=== PATIENT | female | born 1945 | race Caucasian/White ===

== ENCOUNTER 2017-01-07 03:17 | Emergency (ER) | payer MEDICARE, OTHER ==
--- NOTE | 2017-01-07 03:55 | ED Physician Documentation ---
PD HPI TRUNK INJURY - Stated complaint Stated Complaint: FALL - Chief complaint Chief Complaint: Trauma Ch/Bk - History obtained from History obtained from: Patient - History of Present Illness Location: Right chest, Upper abdomen Type of injury: Fall Timing - onset: Enter time (02:00) Timing - details: Abrupt onset Pain level now: 8 Quality: Pain Improved by: Rest Worsened by: Moving, Palpating Associated symtptoms: No: Syncope Contributing factors: No: Anticoagulated Where injury occured: Home Similar symptoms before: Has not had sx before Recently seen: Not recently seen - Additional information Additional information: patient was walking to bathroom shortly prior to arrival, 2 AM, when she tripped and fell, right anterolateral chest wall struck toilet seat, complains of pain in that region. Patient has Parkinson's disease and is confident she tripped due to tripping on her foot secondary to her Parkinson's Disease. Review of Systems Cardiac: reports: Chest pain / pressure. denies: Palpitations Respiratory: reports: Reviewed and negative GI: reports: Abdominal Pain. 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: Hysterectomy - Present Medications Home Medications: Ambulatory Orders Medication Instructions Recorded Confirmed Carbidopa/Levodopa 10/100 [Sinemet 1 each PO DAILY 07/04/13 01/07/17 10 mg/100 mg] Levothyroxine [Synthroid] 75 mcg PO QDAC 07/04/13 07/04/13 PARoxetine [Paxil] 20 mg PO DAILY 07/04/13 01/07/17 Rasagiline [Azilect] 1 mg PO DAILY 07/04/13 01/07/17 HYDROmorphone [Dilaudid] 2 - 4 mg PO Q6H PRN #20 tablet 01/07/17 LORazepam [Ativan] 0.5 mg PO Q6H PRN #10 tablet 01/07/17 oxyCODONE/ACET 5/325 [Percocet 5 1 - 2 each PO Q4-6H PRN 01/07/17 01/07/17 mg/325 mg] - Allergies Allergies/Adverse Reactions: Allergies Allergy/AdvReac Type Severity Reaction Status Date / Time No Known Drug Allergies Allergy Verified 01/07/17 03:49 - Social History Does the pt smoke?: No Smoking Status: Never smoker Does the pt drink ETOH?: No Does the pt have substance abuse?: No - Immunizations Immunizations are current?: Yes - POLST Patient has POLST: No PD ED PE NORMAL - Vitals Vital signs reviewed: Yes - General General: Alert and oriented X 3, Well developed/nourished, Other (NAD at rest but obvious painful distress with movment involving trunk) - Neck Neck: No bony TTP - Cardiac Cardiac: RRR, No murmur - Respiratory Respiratory: No respiratory distress, Clear bilaterally - Abdomen Abdomen: Soft, Other (mild tenderness to palpation RUQ) - Back Back: No CVA TTP, No spinal TTP - Derm Derm: Other (echymosis right flank ) - Extremities Extremities: No tenderness to palpate, Normal ROM s pain, No edema - Neuro Neuro: Alert and oriented X 3, 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, No motor deficit, No sensory deficit Results - Vitals Vitals: Vital Signs - 24 hr 01/07/17 01/07/17 03:22 05:59 Temperature 36.2 C L Heart Rate 100 86 Respiratory 18 15 Rate Blood Pressure 186/120 H 166/88 H O2 Saturation 99 95 Oxygen O2 Source Room air - Labs Labs: Laboratory Tests 01/07/17 01/07/17 04:37 04:37 WBC 6.7 RBC 4.53 Hgb 13.2 Hct 39.6 MCV 87.3 MCH 29.1 MCHC 33.3 RDW 13.8 Plt Count 175 MPV 8.3 Neut # 4.3 Lymph # 1.8 [place] # 0.5 Eos # 0.0 Baso # 0.0 Absolute Nucleated RBC 0.00 Nucleated RBCs 0.0 Sodium 140 Potassium 3.8 Chloride 101 Carbon Dioxide 29 Anion Gap 10.0 BUN 29 H Creatinine 1.4 H Estimated GFR (MDRD) 37 L Glucose 119 H Calcium 9.8 Total Bilirubin 0.5 AST 21 ALT < 10 L Alkaline Phosphatase 94 Total Protein 7.8 Albumin 4.5 Globulin 3.3 Albumin/Globulin Ratio 1.4 Lipase 26 - Rads (name of study) CT A/P Radiology: Prelim report reviewed, See rad report PD MEDICAL DECISION MAKING - ED course Complexity details: reviewed results, re-evaluated patient, considered differential, d/w patient, d/w family Departure - Departure Disposition: 01 Home, Self Care Clinical Impression: Rib fractures Qualifiers: Encounter type: initial encounter Rib fracture type: multiple ribs Fracture type: closed Laterality: right Qualified Code(s): S22.41XA - Multiple fractures of ribs, right side, initial encounter for closed fracture Condition: Good Instructions: ED Fx Rib Follow-Up: Lisha Waller DO [Primary Care Provider] - Prescriptions: LORazepam [Ativan] 0.5 mg PO Q6H PRN #10 tablet PRN Reason: Anxiety HYDROmorphone [Dilaudid] 2 - 4 mg PO Q6H PRN #20 tablet PRN Reason: Pain Discharge Date/Time: 01/07/17 06:54
[2017-01-07] MEDS ORDERED: LORazepam 0.5 MG TABLET PO STA (04:19)
[2017-01-07] MEDS ORDERED: oxyCODONE 5 MG TABLET PO STA (04:19)
[2017-01-07] MEDS ORDERED: LORazepam 0.5 MG TABLET ONE (04:22)
[2017-01-07] MEDS ORDERED: oxyCODONE 5 MG TABLET ONE (04:22)
[2017-01-07 04:48] LABS: BASOPHILS % (AUTO) 0.5 %; EOSINOPHILS % (AUTO) 0.5 %; HCT - HEMATOCRIT 39.6 % (37.0-47.0); HGB - HEMOGLOBIN 13.2 g/dL (12.0-16.0); LYMPHOCYTES # (AUTO) 1.8 10^3/uL (1.5-3.5); LYMPHOCYTES % (AUTO) 26.6 %; MEAN CORPUSCULAR HEMOGLOBIN 29.1 pg (27.0-31.0); MEAN CORPUSCULAR HGB CONC 33.3 g/dL (32.0-36.0); MEAN CORPUSCULAR VOLUME 87.3 fL (81.0-99.0); MEAN PLATELET VOLUME 8.3 fL (7.9-10.8); MONOCYTES # (AUTO) 0.5 10^3/uL (0.0-1.0); MONOCYTES % (AUTO) 8.1 %; NEUTROPHILS # (AUTO) 4.3 10^3/uL (1.5-6.6); NEUTROPHILS % (AUTO) 64.3 %; RED BLOOD COUNT 4.53 10^6/uL (4.20-5.40); RED CELL DISTRIBUTION WIDTH 13.8 % (12.0-15.0); UNCORRECTED WHITE BLOOD COUNT 6.7 x10^3/uL; WHITE BLOOD COUNT 6.7 x10^3/uL (4.8-10.8)
[2017-01-07 04:57] LABS: ALBUMIN/GLOBULIN RATIO 1.4 (1.0-2.2); BILIRUBIN,TOTAL 0.5 mg/dL (0.2-1.0); BUN - BLOOD UREA NITROGEN 29 mg/dL (6-20); CALCIUM 9.8 mg/dL (8.5-10.3); CARBON DIOXIDE - CO2 29 mmol/L (21-32); CHLORIDE 101 mmol/L (101-111); CREATININE 1.4 mg/dL (0.4-1.0); GFR - MDRD 37 (>89); GLUCOSE 119 mg/dL (70-100); LIPASE 26 U/L (22-51); POTASSIUM 3.8 mmol/L (3.5-5.0); SODIUM 140 mmol/L (135-145); TOTAL PROTEIN 7.8 g/dL (6.7-8.2)
[2017-01-07] MEDS ORDERED: IOPAMIDOL-300 100 ML VIAL IVP ONE ×2 (05:35)
[2017-01-07 06:00] VITALS: BP 166/88
--- NOTE | 2017-01-07 06:20 | CT Preliminary Report ---
Exam: CT Abdomen/Pelvis W/ IMPRESSION: 1. There is subcutaneous stranding about the right lateral abdominal wall and flank region. This like ly corresponds to the injury sustained from the recent fall. No intra-abdominal extension. 2. There is a 3.4 cm lesion within the right mid kidney with a small amount of internal fat. Similar finding can also be seen on the prior exam. 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 A slow growing renal cell carcinoma with internal fat is felt to be much less likely. Follow-up examination is recom mended at 6 months. 3. Status post cholecystectomy without pathological biliary dilation. 4. No bowel obstruction. [facility] SITE ID: [id number]
--- NOTE | 2017-01-07 06:23 | CT Report ---
EXAM: CT ABDOMEN AND PELVIS EXAM DATE: 01/07/2017 05:43 AM. CLINICAL HISTORY: Fall, right upper quadrant and right flank injury, pain, COMPARISONS: None. TECHNIQUE: Routine helical CT imaging was performed through the abdomen and pelvis. IV contrast: 50 c c Isovue-300.. Enteric contrast: No. Reconstructions: Coronal and sagittal. In accordance with CT protocol optimization, one or more of the following dose reduction techniques w ere utilized for this exam: automated exposure control, adjustment of mA and/or KV based on patient s ize, or use of iterative reconstructive technique. FINDINGS: ABDOMEN: Liver: No significant abnormality. Stomach/Distal Esophagus: No significant abnormality. Gallbladder: Surgically absent. Bile Ducts: No significant abnormality. Pancreas: No significant abnormality. Spleen: No significant abnormality. Kidneys: There is a 3.4 cm lesion within the right mid kidney (image 30 series 3). Multiple left side d peripelvic cysts are present. Bilobed left upper kidney cyst also noted measuring 5.6 x 5.2 cm (amanda ge 24 series 3). Adrenals: No significant abnormality. Bowel: No obstruction. Average fecal residual. Appendix: Appendix could not be identified with certainty. No secondary evidence of appendicitis. Lymph Nodes: No pathologically enlarged nodes. Vasculature: Normal caliber aorta. Fluid: No significant free fluid. Abdominal Wall: Subcutaneous stranding along the right lateral abdominal wall in the flank. Other: No significant abnormality. PELVIS: Uterus and Ovaries: Surgically absent Bladder: Bladder is Decompressed, precluding assessment. Lymph Nodes: No pathologically enlarged nodes. Fluid: No significant free fluid. Other: None. BONES: No suspicious bony lesions. LOWER CHEST: No significant consolidation or effusion. Mild bilateral lower lobe atelectasis. IMPRESSION: 1. There is subcutaneous stranding about the right lateral abdominal wall and flank region. This like ly corresponds to the injury sustained from the recent fall. No intra-abdominal extension. 2. There is a 3.4 cm lesion within the right mid kidney with a small amount of internal fat. Similar finding can also be seen on the prior exam. 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 A slow growing renal cell carcinoma with internal fat is felt to be much less likely. Follow-up examination is recom mended at 6 months. 3. Status post cholecystectomy without pathological biliary dilation. 4. No bowel obstruction. [facility] Referring Provider Line: [phone] SITE ID: [id number]
== END 2017-01-07 06:54 | disposition home or self-care (01) ==
LOC: ED 03:17
DX: S22.41XA Multiple fractures of ribs, right side, initial encounter for closed fracture (principal); W01.198A Fall on same level from slipping, tripping and stumbling with subsequent striking against other object, initial encounter; G20 Parkinson's disease; E03.9 Hypothyroidism, unspecified
CPT/HCPCS: 36415; 74177; 80053; 83690; 85025; 99283; 99284; A9270; Q9967

== ENCOUNTER 2017-08-11 12:44 | Outpatient (CLI) | payer MEDICARE, OTHER ==
[2017-08-16] MEDS ORDERED: IOPAMIDOL-300 100 ML VIAL IVP ONE (18:12)
== END 2017-08-11 12:45 | disposition home or self-care (01) ==
LOC: DI 12:44
PROVIDERS: ATTEND Family Medicine
DX: Z53.9 Procedure and treatment not carried out, unspecified reason (principal)

== ENCOUNTER 2017-08-16 14:13 | Outpatient (CLI) | payer MEDICARE ==
[2017-08-16] MEDS ORDERED: IOPAMIDOL-300 100 ML VIAL ONE (15:30)
[2017-08-16] MEDS ORDERED: IOPAMIDOL-300 100 ML VIAL IVP ONE (18:15)
--- NOTE | 2017-08-17 18:55 | CT Report ---
EXAM: CT ABDOMEN AND PELVIS WITHOUT AND WITH CONTRAST (CT IVP) EXAM DATE: 08/16/2017 08:18 AM. CLINICAL HISTORY: Right renal mass. COMPARISONS: CT abdomen pelvis 01/07/2017. TECHNIQUE: Routine helical imaging was performed through the kidneys, ureters and bladder before and after IV contrast administration. IV Contrast: 100 cc Isovue-300. Reconstructions: Coronal and sagitt al. In accordance with CT protocol optimization, one or more of the following dose reduction techniques w ere utilized for this exam: automated exposure control, adjustment of mA and/or KV based on patient s ize, or use of iterative reconstructive technique. FINDINGS: Lung Bases: Modest atelectasis or scarring. Right Kidney/Ureter: No hydronephrosis, hydroureter, or stones. An exophytic medial upper pole soft t issue mass with small fatty components measures 2.8 x 2.6 x 2.9 cm (axial 29/6, coronal 31/9), compar ed to 3.1 x 2.7 x 3.3 cm on my remeasurement. Otherwise normal parenchymal enhancement. No filling de fect in the opacified collecting system and ureter. No perinephric fluid or fat stranding. Left Kidney/Ureter: No hydronephrosis, hydroureter, or stones. A mildly lobular cyst in the upper chris e measures 5.3 x 5 x 4.7 cm. Multiple small parapelvic renal cysts. Tiny hypodensities in the midpole , compatible with additional cysts. No filling defect in the opacified collecting system and ureter. No solid renal nodule, perinephric fluid, or fat stranding. Other Solid Organs: Unremarkable liver, spleen, pancreas, and adrenal glands. Upper normal caliber CB D at 10 mm for postcholecystectomy state. Peritoneal Cavity/Bowel: No focal mass, adenopathy, or free fluid. No dilated bowel or acute intestin al abnormality. Mild distal colonic diverticulosis. Stable small fat-containing umbilical hernia. Retroperitoneum: No adenopathy. Pelvic Organs: No stones or apparent focal abnormality of the moderately contracted bladder. Hysterec adrianna. No adnexal mass or cyst. No free fluid or adenopathy. Vasculature: No abdominal aortic aneurysm. Bones: Degenerative changes of the spine. No aggressive bone destructive process. IMPRESSION: 1. A fat-containing solid right renal mass 3 cm compared to 3.3 cm in maximal diameter, virtually pat hognomonic for benign angiomyolipoma. Notice that although rarely renal cell carcinoma could contain fatty components, the latter almost always occurs in the presence of ossification/calcification which is absent in this lesion. Suggest ultrasound follow-up in 12 months to follow lesion size since larg er AMLs (greater than 4 cm) are at an increased risk for hemorrhage. 2. Left renal cysts. 3. No acute findings. [facility] Referring Provider Line: [phone] SITE ID: [id number]
== END 2017-08-16 14:14 | disposition home or self-care (01) ==
LOC: LAB 14:13 → DI 14:14
PROVIDERS: ATTEND Family Medicine
DX: N28.89 Other specified disorders of kidney and ureter (principal); Q61.02 Congenital multiple renal cysts
CPT/HCPCS: 36415; 74178; 82565; Q9967

== ENCOUNTER 2017-12-19 08:00 | Outpatient (CLI) | payer MEDICARE, OTHER ==
[2017-12-19 19:32] LABS: BASOPHILS % (AUTO) 0.9 %; LYMPHOCYTES # (AUTO) 1.3 10^3/uL (1.5-3.5); LYMPHOCYTES % (AUTO) 30.5 %; MEAN CORPUSCULAR HEMOGLOBIN 29.4 pg (27.0-31.0); MEAN CORPUSCULAR VOLUME 88.9 fL (81.0-99.0); MEAN PLATELET VOLUME 8.4 fL (7.9-10.8); MONOCYTES # (AUTO) 0.3 10^3/uL (0.0-1.0); MONOCYTES % (AUTO) 7.8 %; NEUTROPHILS # (AUTO) 2.6 10^3/uL (1.5-6.6); NEUTROPHILS % (AUTO) 59.8 %; PLT - PLATELET COUNT 197 10^3/uL (130-450); RED BLOOD COUNT 4.44 10^6/uL (4.20-5.40); RED CELL DISTRIBUTION WIDTH 13.6 % (12.0-15.0); WHITE BLOOD COUNT 4.3 x10^3/uL (4.8-10.8)
[2017-12-19 19:47] LABS: ALBUMIN 4.3 g/dL (3.2-5.5); ALBUMIN/GLOBULIN RATIO 1.6 (1.0-2.2); ALKALINE PHOSPHATASE 58 IU/L (42-121); ALT ALANINE AMINOTRANSFERASE < 10 IU/L (10-60); AST ASPARTATE AMINOTRANSFERASE 19 IU/L (10-42); BILIRUBIN,TOTAL 0.8 mg/dL (0.2-1.0); BUN - BLOOD UREA NITROGEN 16 mg/dL (6-20); CALCIUM 8.8 mg/dL (8.5-10.3); CARBON DIOXIDE - CO2 27 mmol/L (21-32); CHLORIDE 105 mmol/L (101-111); CHOL/HDL RATIO 4.7 (<4.4); CHOLESTEROL 268 mg/dL; CREATININE 0.7 mg/dL (0.4-1.0); GFR - MDRD 83 (>89); GLUCOSE 107 mg/dL (70-100); HDL CHOLESTEROL 57 mg/dL; LDL CHOLESTEROL,CALCULATED 177 mg/dL; LDL/HDL RATIO 3.1 (<4.4); SODIUM 139 mmol/L (135-145); VLDL CHOLESTEROL 34 mg/dL
== END 2017-12-19 08:01 | disposition home or self-care (01) ==
LOC: LAB.WCP 08:00
PROVIDERS: ATTEND Family Medicine
DX: E78.5 Hyperlipidemia, unspecified (principal); Z79.899 Other long term (current) drug therapy; I10 Essential (primary) hypertension; E03.9 Hypothyroidism, unspecified
CPT/HCPCS: 36415; 80053; 80061; 83721; 84443; 85025

== ENCOUNTER 2018-02-28 12:36 | Outpatient (CLI) | payer MEDICARE, OTHER ==
--- NOTE | 2018-02-28 14:07 | DEXA Report ---
Procedure Date: 02/28/2018 Accession Number: [id number] / [id number] Procedure: DEX - Dexa Spine and/or Hip CPT Code: FULL RESULT: EXAM: Dexa Spine and/or Hip DATE: 02/28/2018 1:16 PM CLINICAL HISTORY: BONE DISORDER TECHNIQUE: Dual energy x-ray absorptiometry (DXA) was performed on a [place] [employer]. Regions measured are the AP Spine, femoral neck, and if needed forearm. COMPARISON: None. In accordance with the International Society for Clinical Densitometry (ISCD) guidelines, data from previous exams may be reanalyzed using current recommendations and techniques. This is done to allow a more accurate basis for comparison with the current study. FINDINGS: The data for the lumbar spine is as follows: BMD (g/cm/cm) T-SCORE Z-SCORE REGION L1 1.183 0.4 1.2 L2 1.213 0.1 0.9 L3 1.164 -0.3 0.5 L4 1.347 1.2 2.0 TOTAL 1.231 0.4 1.2 NOTE: All evaluable vertebrae are used for classification The data for the hip is as follows: BMD (g/cm/cm) T-SCORE Z-SCORE REGION Neck 0.807 -1.7 -0.5 TOTAL 0.939 -0.5 0.3 NOTE: The femoral neck or total proximal femur, whichever is lowest, is used for classification. IMPRESSION: THE WHO CLASSIFICATION BASED ON THE INTERNATIONAL REFERENCE STANDARD IS OSTEOPENIA. THE FRACTURE RISK IS INCREASED. RECOMMENDATION: Patients with diagnosis of osteoporosis or osteopenia should have regular bone mineral density assessment. For those eligible for Medicare, routine testing is allowed once every 2 years. Testing frequency can be increased for patients who have rapidly progressing disease or for those who are receiving medical therapy to restore bone mass. COMMENT: World Health Organization (WHO) definitions for osteoporosis and osteopenia: NORMAL BMD: T-score at -1.0 or higher, fracture risk is low OSTEOPENIA BMD: T-score between -1.0 and -2.5, fracture risk is increased. OSTEOPOROSIS BMD: T-score at -2.5 or lower, fracture risk is high. National Osteoporosis Foundation recommends: 1. Obtain adequate dietary calcium (at least 1200 mg per day) and vitamin D (400-800 international units per day). 2. Participate, as appropriate, in regular weightbearing and muscle-strengthening exercise. 3. Avoid tobacco use and reduce alcohol and caffeine intake. 4. For more detailed information see the website at www.NOF.org.
== END 2018-02-28 12:37 | disposition home or self-care (01) ==
LOC: DI 12:36
PROVIDERS: ATTEND Family Medicine
DX: M85.88 Other specified disorders of bone density and structure, other site (principal)
CPT/HCPCS: 77080

== ENCOUNTER 2018-02-28 12:40 | Outpatient (CLI) | payer MEDICARE, OTHER ==
--- NOTE | 2018-03-01 14:38 | Mammography Report ---
Procedure Date: 02/28/2018 Accession Number: [id number] / [id number] Procedure: YVONNE - Screening Mammo Dig Bilat CPT Code: FULL RESULT: EXAM: Screening Mammo Dig Bilat DATE: 02/28/2018 1:31 PM CLINICAL HISTORY: 73-year-old for screening TECHNIQUE: Bilateral CC and MLO views were obtained. COMPARISON: 05/31/2016, 07/28/2014 FINDINGS: The breasts demonstrate scattered fibroglandular densities bilaterally. Coarse and punctate, typically benign calcifications are present. No suspicious masses, clustered microcalcifications, or regions of architectural distortion are identified. IMPRESSION: Benign findings RECOMMENDATION: Routine annual screening unless otherwise clinically indicated. BIRADS CATEGORY 2: Benign findings STANDARD QUALIFYING STATEMENTS: 1. This examination was reviewed with the aid of Computer-Aided Detection (CAD). 2. A negative or benign imaging report should not delay biopsy if clinically suspicious findings are present. Consider surgical consultation if warrented. More than 5% of cancers are not identified by imaging. 3. Dense breasts may obscure an underlying neoplasm.
== END 2018-02-28 12:41 | disposition home or self-care (01) ==
LOC: DI 12:40
PROVIDERS: ATTEND Family Medicine
DX: Z12.31 Encounter for screening mammogram for malignant neoplasm of breast (principal)
CPT/HCPCS: 77067

== ENCOUNTER → 2018-07-03 | Outpatient (CLI) | payer MEDICARE, OTHER ==
[2018-07-03 14:18] LABS: BASOPHILS % (AUTO) 0.6 %; EOSINOPHILS % (AUTO) 1.1 %; HGB - HEMOGLOBIN 13.6 g/dL (12.0-16.0); LYMPHOCYTES # (AUTO) 1.7 10^3/uL (1.5-3.5); LYMPHOCYTES % (AUTO) 42.4 %; MEAN CORPUSCULAR HEMOGLOBIN 29.9 pg (27.0-31.0); MEAN CORPUSCULAR VOLUME 88.1 fL (81.0-99.0); MEAN PLATELET VOLUME 8.2 fL (7.9-10.8); MONOCYTES # (AUTO) 0.4 10^3/uL (0.0-1.0); MONOCYTES % (AUTO) 9.5 %; NEUTROPHILS # (AUTO) 1.8 10^3/uL (1.5-6.6); NEUTROPHILS % (AUTO) 46.4 %; PLT - PLATELET COUNT 196 10^3/uL (130-450); RED BLOOD COUNT 4.55 10^6/uL (4.20-5.40); RED CELL DISTRIBUTION WIDTH 13.3 % (12.0-15.0); WHITE BLOOD COUNT 3.9 x10^3/uL (4.8-10.8)
[2018-07-03 14:36] LABS: ALBUMIN 3.9 g/dL (3.2-5.5); ALBUMIN/GLOBULIN RATIO 1.3 (1.0-2.2); ALKALINE PHOSPHATASE 67 IU/L (42-121); ALT ALANINE AMINOTRANSFERASE < 10 IU/L (10-60); AST ASPARTATE AMINOTRANSFERASE 17 IU/L (10-42); BILIRUBIN,TOTAL 0.9 mg/dL (0.2-1.0); BUN - BLOOD UREA NITROGEN 16 mg/dL (6-20); CALCIUM 8.8 mg/dL (8.5-10.3); CARBON DIOXIDE - CO2 29 mmol/L (21-32); CHLORIDE 100 mmol/L (101-111); CHOL/HDL RATIO 4.2 (<4.4); CHOLESTEROL 254 mg/dL; CREATININE 0.9 mg/dL (0.4-1.0); GFR - MDRD 62 (>89); GLUCOSE 114 mg/dL (70-100); HDL CHOLESTEROL 60 mg/dL; LDL CHOLESTEROL,CALCULATED 155 mg/dL; LDL/HDL RATIO 2.6 (<4.4); SODIUM 140 mmol/L (135-145); VLDL CHOLESTEROL 39 mg/dL
== END ==
LOC: LAB.WCP 10:39
PROVIDERS: ATTEND Family Medicine
DX: M89.9 Disorder of bone, unspecified (principal); E78.5 Hyperlipidemia, unspecified
CPT/HCPCS: 36415; 80053; 80061; 83721; 85025

== ENCOUNTER 2018-08-17 14:57 | Outpatient (CLI) | payer MEDICARE, OTHER ==
--- NOTE | 2018-08-18 11:38 | Ultrasound Report ---
Reason: KIDNEY MASS Procedure Date: 08/17/2018 Accession Number: [id number] / [id number] Procedure: US - Retroperitoneal CPT Code: FULL RESULT: EXAM: RENAL ULTRASOUND EXAM DATE: 08/17/2018 03:45 PM. CLINICAL HISTORY: KIDNEY MASS. COMPARISON: IVP 08/16/2017 3:48 PM. TECHNIQUE: Real-time scanning was performed with static images obtained. FINDINGS: Right Kidney: 10.7 x 4.3 x 4 cm. Normal echotexture with no stones, contour-deforming masses, or hydronephrosis. Left Kidney: 9.9 x 4.5 x 5 cm. No stones, contour-deforming masses, or hydronephrosis. Anechoic 4.5 x 4.2 x 4.4 cm upper left renal simple cyst. Bladder: Ureteral just were not evaluated. The prevoid bladder volume was 22.3 cc. The postvoid bladder volume was 17.6 cc. Other: None. IMPRESSION: 1. Anechoic 4.5 cm simple left upper renal cyst. No contour deforming renal mass, stone or hydronephrosis. Fat-containing right upper renal mass was seen on a prior CT. In absence of surgical intervention, recommend follow-up CT to document the presence or absence of an interval change of the lesion given the nonvisualization of the lesion on ultrasound. 2. Normal bladder. [facility]
== END 2018-08-17 14:58 | disposition home or self-care (01) ==
LOC: DI 14:57
PROVIDERS: ATTEND Family Medicine
DX: N28.89 Other specified disorders of kidney and ureter (principal); N28.1 Cyst of kidney, acquired
CPT/HCPCS: 76770

== ENCOUNTER 2018-08-22 14:02 | Outpatient (CLI) | payer MEDICARE, OTHER ==
[2018-08-22] MEDS ORDERED: IOVERSOL 320 100 ML VIAL IVP ONE ×2 (14:28→16:31)
--- NOTE | 2018-08-23 00:20 | CT Report ---
Reason: RENAL MASS Procedure Date: 08/22/2018 Accession Number: [id number] / [id number] Procedure: CT - Abdomen W/WO CPT Code: FULL RESULT: EXAM: CT ABDOMEN WITHOUT AND WITH CONTRAST EXAM DATE: 08/22/2018 04:15 PM. HISTORY: Renal mass. COMPARISON: IVP 08/16/2017 3:48 PM. TECHNIQUE: Routine helical CT imaging was performed through the kidneys before and after administration of IV contrast: 90 mL Optiray 320. Enteric contrast: No. Reconstruction: Coronal and sagittal. In accordance with CT protocol optimization, one or more of the following dose reduction techniques were utilized for this exam: automated exposure control, adjustment of mA and/or KV based on patient size, or use of iterative reconstructive technique. FINDINGS: Lung Bases: Unremarkable. Liver: Normal. No masses. Gallbladder/Bile Ducts: Unremarkable post cholecystectomy. Spleen: Normal. Pancreas: Normal. No masses or ductal obstruction. Adrenal Glands: Normal. Kidneys: Stable fat-containing solid medial exophytic right upper pole renal nodule, measuring 31 x 27 mm on image 32 series 5 and extending 32 mm in craniocaudal dimension on sagittal image 46 series 12. Stable 5 cm left upper pole cyst. No suspicious renal masses seen. No stone disease or hydronephrosis. Symmetric excretion of the kidneys. Peritoneal Cavity/Bowel: Unremarkable where seen. Pelvis was not included on study. No free air or fluid in the abdomen. Vasculature: No aneurysms or other significant abnormality. Bones: No significant abnormality. Other: None. 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 No suspicious renal mass seen. [facility]
== END 2018-08-22 14:03 | disposition home or self-care (01) ==
LOC: LAB 14:02 → DI 14:03
PROVIDERS: ATTEND Family Medicine
DX: D17.71 Benign lipomatous neoplasm of kidney (principal)
CPT/HCPCS: 36415; 74170; 82565; Q9967

== ENCOUNTER 2019-01-01 08:00 | Outpatient (CLI) | payer MEDICARE, OTHER ==
[2019-01-01 13:28] LABS: BASOPHILS % (AUTO) 0.8 %; EOSINOPHILS # (AUTO) 0.1 10^3/uL (0.0-0.7); EOSINOPHILS % (AUTO) 1.3 %; LYMPHOCYTES # (AUTO) 1.6 10^3/uL (1.5-3.5); LYMPHOCYTES % (AUTO) 39.3 %; MEAN CORPUSCULAR HEMOGLOBIN 29.2 pg (27.0-31.0); MEAN CORPUSCULAR HGB CONC 32.9 g/dL (32.0-36.0); MEAN CORPUSCULAR VOLUME 88.7 fL (81.0-99.0); MEAN PLATELET VOLUME 8.6 fL (7.9-10.8); MONOCYTES # (AUTO) 0.4 10^3/uL (0.0-1.0); MONOCYTES % (AUTO) 9.1 %; NEUTROPHILS % (AUTO) 49.5 %; PLT - PLATELET COUNT 196 10^3/uL (130-450); RED BLOOD COUNT 4.45 10^6/uL (4.20-5.40); RED CELL DISTRIBUTION WIDTH 13.4 % (12.0-15.0); WHITE BLOOD COUNT 4.1 x10^3/uL (4.8-10.8)
[2019-01-01 15:00] LABS: ALBUMIN 3.8 g/dL (3.2-5.5); ALBUMIN/GLOBULIN RATIO 1.3 (1.0-2.2); ALKALINE PHOSPHATASE 56 IU/L (42-121); ALT ALANINE AMINOTRANSFERASE < 10 IU/L (10-60); AST ASPARTATE AMINOTRANSFERASE 13 IU/L (10-42); BILIRUBIN,TOTAL 0.7 mg/dL (0.2-1.0); BUN - BLOOD UREA NITROGEN 17 mg/dL (6-20); CARBON DIOXIDE - CO2 28 mmol/L (21-32); CHLORIDE 102 mmol/L (101-111); CHOLESTEROL 236 mg/dL; CREATININE 0.9 mg/dL (0.4-1.0); GFR - MDRD 62 (>89); GLUCOSE 109 mg/dL (70-100); HDL CHOLESTEROL 59 mg/dL; LDL CHOLESTEROL,CALCULATED 152 mg/dL; LDL/HDL RATIO 2.6 (<4.4); SODIUM 142 mmol/L (135-145); TOTAL PROTEIN 6.7 g/dL (6.7-8.2); VLDL CHOLESTEROL 25 mg/dL
== END 2019-01-01 23:59 | disposition home or self-care (01) ==
LOC: LAB.WCP 08:00
PROVIDERS: ATTEND Family Medicine
DX: E78.5 Hyperlipidemia, unspecified (principal); I10 Essential (primary) hypertension; Z79.891 Long term (current) use of opiate analgesic; E03.9 Hypothyroidism, unspecified
CPT/HCPCS: 36415; 80053; 80061; 83721; 84443; 85025

== ENCOUNTER 2019-04-29 15:24 | Outpatient (CLI) | payer MEDICARE ==
--- NOTE | 2019-04-30 08:31 | Mammography Report ---
Reason: SCREENING MAMMO Procedure Date: 04/29/2019 Accession Number: [id number] / [id number] Procedure: YVONNE - Screening Mammo w/Bernardino CPT Code: FULL RESULT: EXAM: Screening Mammo w/Bernardino DATE: 04/29/2019 3:50 PM CLINICAL HISTORY: Screening encounter. TECHNIQUE: (B) - Bilateral CC and MLO views were obtained. COMPARISON: 02/20/2018 through 08/18/2011. PARENCHYMAL PATTERN: (A) - The breast(s) demonstrate(s) scattered fibroglandular densities. FINDINGS: There are coarse typically benign calcifications. There are no suspicious masses, calcifications, or areas of distortion. IMPRESSION: Benign findings. BI-RADS category 2. RECOMMENDATION: (ANNUAL) - Recommend routine annual screening mammography. BI-RADS CATEGORY: (2) - Benign Findings. STANDARD QUALIFYING STATEMENTS: 1. This examination was not reviewed with the aid of Computer-Aided Detection (CAD). 2. A negative or benign imaging report should not preclude biopsy if clinically suspicious findings are present. 3. Dense breasts may obscure an underlying neoplasm. 4. This examination was reviewed with the aid of 3D breast imaging (tomosynthesis).
== END 2019-04-29 15:25 | disposition home or self-care (01) ==
LOC: DI 15:24
DX: Z12.31 Encounter for screening mammogram for malignant neoplasm of breast (principal)
CPT/HCPCS: 77063; 77067

== ENCOUNTER 2019-07-15 10:33 | Outpatient (CLI) | payer MEDICARE ==
[2019-07-15 13:18] LABS: ALBUMIN 4.1 g/dL (3.2-5.5); ALBUMIN/GLOBULIN RATIO 1.3 (1.0-2.2); ALKALINE PHOSPHATASE 70 IU/L (42-121); ALT ALANINE AMINOTRANSFERASE < 10 IU/L (10-60); AST ASPARTATE AMINOTRANSFERASE 16 IU/L (10-42); BILIRUBIN,TOTAL 0.7 mg/dL (0.2-1.0); BUN - BLOOD UREA NITROGEN 19 mg/dL (6-20); CARBON DIOXIDE - CO2 29 mmol/L (21-32); CHLORIDE 103 mmol/L (101-111); CREATININE 0.9 mg/dL (0.4-1.0); GFR - MDRD 62 (>89); GLUCOSE 103 mg/dL (70-100); SODIUM 139 mmol/L (135-145); TOTAL PROTEIN 7.3 g/dL (6.7-8.2)
[2019-07-15 13:27] LABS: HB2 TOTAL 12.3 g/dL; HEMOGLOBIN A1C 0.51 g/dL; HEMOGLOBIN A1C % 5.9 % (4.6-6.2)
[2019-07-16 13:00] LABS: HEPATITIS C ANTIBODY NON-REACTIVE (NON-REACTIVE)
== END 2019-07-15 23:59 | disposition home or self-care (01) ==
LOC: LAB.WCP 10:33
PROVIDERS: ATTEND Family Medicine
DX: Z11.59 Encounter for screening for other viral diseases (principal); R73.01 Impaired fasting glucose
CPT/HCPCS: 36415; 80053; 83036; 86803

== ENCOUNTER 2019-09-27 17:47 | Outpatient (CLI) | payer MEDICARE | END 2019-09-27 17:48 | disposition critical access hospital (66) | LOC: EMS 17:47 | PROVIDERS: ATTEND Surgery | DX: M25.512 Pain in left shoulder (principal); W01.190A Fall on same level from slipping, tripping and stumbling with subsequent striking against furniture, initial encounter; Y93.01 Activity, walking, marching and hiking; Y92.008 Other place in unspecified non-institutional (private) residence as the place of occurrence of the external cause | CPT/HCPCS: A0425; A0427 ==

== ENCOUNTER 2019-09-27 18:15 | Inpatient (IN) | payer MEDICARE ==
[2019-09-27] MEDS ORDERED: LORazepam 2 MG/ML VIAL IVP STA (18:17)
[2019-09-27] MEDS ORDERED: KETOROLAC 30 MG/ML VIAL IVP STA (18:17)
[2019-09-27] MEDS: HYDROmorphone 1 MG/ML CARPUJECT IVP STA ×2 (18:24→23:20)
--- NOTE | 2019-09-27 18:25 | ED Physician Documentation ---
PD HPI UPPER EXT INJURY - Stated complaint Stated Complaint: GLF, LT SHOULDER PAIN - Chief complaint Chief Complaint: Ext Problem - History obtained from History obtained from: Patient - History of Present Illness Location: Left (She tripped and fell on a carpet, hit on a bookshelf directly on her left shoulder and has severe pain there. No other injuries. 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 - Present Medications Home Medications: Ambulatory Orders Medication Instructions Recorded Confirmed Carbidopa/Levodopa 10/100 [Sinemet each PO DAILY 07/04/13 01/07/17 10 mg/100 mg] Levothyroxine [Synthroid] 75 mcg PO QDAC 07/04/13 07/04/13 PARoxetine [Paxil] 20 mg PO DAILY 07/04/13 01/07/17 Rasagiline [Azilect] 1 mg PO DAILY 07/04/13 01/07/17 oxyCODONE/ACET 5/325 [Percocet 5 1 - 2 each PO Q4-6H PRN 01/07/17 01/07/17 mg/325 mg] - Allergies Allergies/Adverse Reactions: Allergies Allergy/AdvReac Type Severity Reaction Status Date / Time No Known Drug Allergies Allergy Verified 01/07/17 03:49 - Social History Does the pt smoke?: No Smoking Status: Never smoker Does the pt drink ETOH?: No Does the pt have substance abuse?: No - Immunizations Immunizations are current?: Yes - POLST Patient has POLST: No PD ED PE NORMAL - Vitals Vital signs reviewed: Yes - General General: Other (Screaming and in pain) - HEENT HEENT: PERRL, EOMI - Neck Neck: No bony TTP (But will image the C-spine given potential distracting injury) - Cardiac Cardiac: RRR, No murmur - Respiratory Respiratory: No respiratory distress, Clear bilaterally - Abdomen Abdomen: Normal bowel sounds, Soft, Non tender - Back Back: No CVA TTP, No spinal TTP - Derm Derm: Normal color, Warm and dry - Extremities Extremities: Other (Quite tender in the area of the upper humerus and cannot range the left arm at all. Remainder of her extremities seem nontender. 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 well as radial pulses.) - Neuro Neuro: Alert and oriented X 3, Normal speech Results - Vitals Vitals: Vital Signs - 24 hr 09/27/19 09/27/19 09/27/19 18:18 18:24 19:04 Temperature Heart Rate 81 80 85 Respiratory 26 H 18 Rate Blood Pressure 198/98 H 167/94 H O2 Saturation 96 98 87 L 09/27/19 09/27/19 09/27/19 19:05 19:27 20:00 Temperature 36.8 C Heart Rate 67 Respiratory 14 Rate Blood Pressure 166/109 H O2 Saturation 94 96 09/27/19 21:00 Temperature Heart Rate 86 Respiratory 16 Rate Blood Pressure 157/85 H O2 Saturation 94 Oxygen O2 Source Nasal cannula - Labs Labs: Laboratory Tests 09/27/19 09/27/19 09/27/19 18:22 18:22 18:22 WBC 9.9 RBC 4.10 L Hgb 12.0 Hct 37.8 MCV 92.2 MCH 29.3 MCHC 31.7 L RDW 12.8 Plt Count 159 MPV 10.3 Neut # (Auto) 8.3 H Lymph # (Auto) 0.9 L [place] # (Auto) 0.7 Eos # (Auto) 0.0 Baso # (Auto) 0.0 Absolute Nucleated RBC 0.00 Nucleated RBC % 0.0 PT 12.7 H INR 1.1 Sodium 139 Potassium 3.4 L Chloride 107 Carbon Dioxide 26 Anion Gap 6.0 BUN 15 Creatinine 0.7 Estimated GFR (MDRD) 82 L Glucose 119 H Calcium 8.0 L - Rads (name of study) L humerus Radiology: EMP read contemporaneously (Completely displaced humeral neck fracture) CT Cspine Radiology: EMP read contemporaneously (NAD) CT LUE Radiology: EMP read contemporaneously (Completely displaced and mildly comminuted fracture of the surgical neck of the humerus.) PD MEDICAL DECISION MAKING - ED course ED course: 74-year-old woman with history of Parkinson's presents after a trip and fall injuring her left shoulder, pain is severe and received 275 mcg of fentanyl on the way here and on arrival received a milligram of Dilaudid, 30 mg of Toradol, and 1 mg of Ativan just to get imaging done. Given potential distracting injury, out of an abundance of caution, the cervical spine was imaged despite no clinical findings there. Also was difficult to get adequate pictures of her humerus itself so a CT was done at that as well. This was due to uncontrolled pain. Case was discussed by phone with Dr. Rios, the on-call orthopedic surgeon who will see her in consult, does not know the timing of potential surgical intervention at this point. Spoke with Dr Chavis for admission for pain control who is concerned about the criteria for admission. I called [facility] and they would actually prefer to send her down to [place], I spoke with Dr. Capone there at approximately 8:20 PM and they will call me back with a bed and an accepting physician. Subsequently I also spoke with the orthopedic PA there and Dr. Capone again, they were planning to accept her, but the family and the patient did not want to be transferred. They wanted to stay here for pain control. They understand that their insurance may not cover any or all of the stay here and the patient signed a advance beneficiary notice to that effect. Spoke with Dr. Chavis for observation at 10:05 PM. Departure - Departure Disposition: ED Place in Observation Clinical Impression: Humeral surgical neck fracture Qualifiers: Encounter type: initial encounter Fracture type: closed Fracture morphology: unspecified fracture morphology Fracture alignment: displaced Laterality: left Qualified Code(s): S42.212A - Unspecified displaced fracture of surgical neck of left humerus, initial encounter for closed fracture Condition: Good Record reviewed to determine appropriate education?: Yes
--- NOTE | 2019-09-27 19:08 | XRAY Report ---
Reason: arm injury Procedure Date: 09/27/2019 Accession Number: [id number] / [id number] Procedure: XR - Humerus LT CPT Code: Final Report FULL RESULT: EXAM: LEFT HUMERUS RADIOGRAPHY EXAM DATE: 09/27/2019 06:57 PM. CLINICAL HISTORY: Fall. Arm injury. Decreased range of motion. COMPARISON: None. TECHNIQUE: 2 views. FINDINGS: Bones: Completely displaced humeral neck fracture. No other bony abnormalities identified. Joints: Normal. No effusions or subluxations in the visualized shoulder or elbow joints. Soft Tissues: Unremarkable. IMPRESSION: Completely displaced humeral neck fracture. RADIA
[2019-09-27] MEDS ORDERED: oxyCODONE 5 MG TABLET PO STA (19:26)
[2019-09-27 19:36] LABS: BASOPHILS % (AUTO) 0.4 %; EOSINOPHILS % (AUTO) 0.2 %; LYMPHOCYTES # (AUTO) 0.9 10^3/uL (1.5-3.5); LYMPHOCYTES % (AUTO) 8.6 %; MEAN CORPUSCULAR HEMOGLOBIN 29.3 pg (27.0-31.0); MEAN CORPUSCULAR HGB CONC 31.7 g/dL (32.0-36.0); MEAN CORPUSCULAR VOLUME 92.2 fL (81.0-99.0); MEAN PLATELET VOLUME 10.3 fL (7.9-10.8); MONOCYTES # (AUTO) 0.7 10^3/uL (0.0-1.0); MONOCYTES % (AUTO) 6.8 %; NEUTROPHILS # (AUTO) 8.3 10^3/uL (1.5-6.6); NEUTROPHILS % (AUTO) 83.5 %; PLT - PLATELET COUNT 159 10^3/uL (130-450); RED CELL DISTRIBUTION WIDTH 12.8 % (12.0-15.0); WHITE BLOOD COUNT 9.9 x10^3/uL (4.8-10.8)
[2019-09-27 19:41] LABS: CREATININE 0.7 mg/dL (0.4-1.0)
[2019-09-27 19:52] LABS: INR 1.1 (0.8-1.2); PT - PROTHROMBIN TIME 12.7 secs (9.9-12.6)
--- NOTE | 2019-09-27 20:14 | CT Report ---
Reason: humerus fracture Procedure Date: 09/27/2019 Accession Number: [id number] / [id number] Procedure: CT - UPPER EXTREMITY WO - LT CPT Code: Final Report FULL RESULT: EXAM: LEFT SHOULDER CT WITHOUT CONTRAST EXAM DATE: 09/27/2019 07:06 PM. CLINICAL HISTORY: Humerus fracture. COMPARISON: HUMERUS LT 09/27/2019 6:35 PM. TECHNIQUE: Thin-section axial images were acquired of the shoulder without contrast. Post-processing: Coronal and sagittal reformats. Other: None. In accordance with CT protocol optimization, one or more of the following dose reduction techniques were utilized for this exam: automated exposure control, adjustment of mA and/or KV based on patient size, or use of iterative reconstructive technique. FINDINGS: Bones: There is a transverse fracture involving the surgical neck of the humerus with a full bone shaft width displacement of the humeral shaft medially. There are several residual comminuted fracture fragments laterally. The fracture extends to the base of the greater tuberosity however no significant tuberosity displacement. The visualized clavicle, scapula and left upper ribs are intact. Joints: No glenohumeral dislocation. Musculature: Normal. No fatty atrophy. Other: The visualized lungs are unremarkable. No lymphadenopathy in the visualized axilla. IMPRESSION: 1. Completely displaced, mildly comminuted fracture involving the surgical neck of the humerus. RADIA
[2019-09-27] MEDS ORDERED: HYDROmorphone 1 MG/ML CARPUJECT ONE (20:27)
[2019-09-27] MEDS ORDERED: HYDROmorphone 1 MG/ML CARPUJECT IVP STA ×3 (20:35→22:21)
--- NOTE | 2019-09-27 20:51 | CT Report ---
Reason: fall, distracting injury Procedure Date: 09/27/2019 Accession Number: [id number] / [id number] Procedure: CT - CERVICAL SPINE WO CPT Code: Final Report FULL RESULT: EXAM: CT CERVICAL SPINE WITHOUT CONTRAST DATE: 09/27/2019 06:44 PM. HISTORY: Fall, distracting injury. COMPARISONS: None. TECHNIQUE: Thin-section axial images were acquired of the cervical spine without contrast. Post-processing: Coronal and sagittal reformats. Other: None. In accordance with CT protocol optimization, one or more of the following dose reduction techniques were utilized for this exam: automated exposure control, adjustment of mA and/or KV based on patient size, or use of iterative reconstructive technique. FINDINGS: Alignment: No evidence of dislocation. Bones: No fracture or bone lesion. Interspace Levels/Facets: No evidence of significant degenerative disease. Spinal canal: No significant abnormalities are seen. Other: No evidence of prevertebral soft tissue swelling or apical pneumothorax. IMPRESSION: No evidence of cervical spine fracture or dislocation. RADIA
[2019-09-27] MEDS ORDERED: methocarbamoL 500 MG TABLET PO STA (22:21)
[2019-09-27] MEDS ORDERED: ONDANSETRON 4 MG/2 ML VIAL IVP PRN (22:31)
[2019-09-27] MEDS ORDERED: ONDANSETRON ODT 4 MG TABLET TL PRN (22:31)
[2019-09-27] MEDS ORDERED: ACETAMINOPHEN 325 MG TABLET PO PRN (22:31)
--- NOTE | 2019-09-27 22:43 | HISTORY & PHYSICAL EXAMINATION ---
Chief Complaint - Chief Complaint Chief Complaint: fall with left shoulder pain, screaming when moved History of Present Illness - Admitted From Admitted From:: Home/ER - History Obtained From Records Reviewed: [facility] and [facility] History obtained from: Dr. Kaufman Exam Limitations: pain and sedation from pain meds - History of Present Illness HPI Comment/Other: A 74-year-old white female who has Parkinson's disease. She lost balance, Tripped,fell against a bookshelf, and then on the ground. She was carrying items, one item in each hand. Was not using her walker. She had immediate left arm pain in the shoulder region. She was brought in screaming with pain by EMS. This is after 275 mcg of fentanyl. In our emergency room she has had difficulty control pain medication in spite of multiple Dilaudid injections. Our orthopedic surgeon will not be seeing her tonight and will see her tomorrow morning. Orthopedics at [facility] did accept her in transfer with the possibility of surgery early tomorrow. However the patient and family have opted to stay here. In review of her past medical history with Dr. Waller, she has a long-term use of opiates to control lumbar back pain, vertebral compression fractures. She does not have any severe cardiovascular disease. There is no high blood pressure, diabetes, COPD, smoking history, arrhythmia history, or valvular heart disease for her. If she does have to have surgery here, she appears to be at normal perioperative risk for cardiac event or illness. History - Past Medical History Cardiovascular: reports: Hypertension (in the past but hasn't been on meds for a very long time) Respiratory: reports: None Neuro: reports: Parkinson's (presented as fine tremor right hand 2007 with falls. Seen by Neurology 05/2009 [facility] then [facility] and then [facility] 2011. ) Endocrine/Autoimmune: reports: HyPOthyroidism GI: reports: None ARTIFICIAL PLASTIC EYE MAKER: reports: Fibroids : reports: None HEENT: reports: Other (vitreous detachments OU) Psych: reports: Depression (with SSRI started 2005.), Anxiety, Panic attacks Musculoskeletal: reports: Osteopenia (with T score -1.1 femur 08/10), Chronic back pain (Started in L spine 2010 and included T spine by 2011. MRI shows wedge fx of midthoracic. Has fallen several times w one down stairs 2012 and worse compression fx. Started on opiates 02/2014.), Other (Extremely sensitive to pain in general. A blood pressure cuff will cause her to cry out, her son accidentally bumping up against her will cause her to cry out in pain.) Derm: reports: Other (AK and SK followed by dermatology) MRSA Hx?: No - Past Surgical History General: reports: Cholecystectomy (1970), Appendectomy (incidental with lita), Colonoscopy (2005) /ARTIFICIAL PLASTIC EYE MAKER: reports: Dilation and currettage (1991), Hysterectomy, Other (Cone biopsy of cervix 1991) HEENT: reports: Rhinoplasty (3 times) - Family & Social History Family History Comment/Other: Father at age 78. He had a history of hypertension. of a stroke after bypass surgery. Mother had osteoporosis. She had 2 sisters and 1 brother. Her brother had hypertension. Children are healthy with one having Deepika's syndrome/RA and lives with her. Living arrangement: At home Living Situation: With family Social History Notes: Nver smoked. Has no history of alcohol abuse. Has no history of recreational substance abuse. She has been since 2005. 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 - Substance History Use: Uses substance without health or social issues: NONE Abuse: Recurrent use of substance despite neg consequences: NONE Dependence: Experiences withdrawal or developed tolerances: NONE - POLST Patient has POLST: No POLST Status: Full Code Meds/Allgy - Home Medications Home Medications: Ambulatory Orders Medication Instructions Recorded Confirmed Carbidopa/Levodopa 10/100 [Sinemet each PO DAILY 07/04/13 01/07/17 10 mg/100 mg] Levothyroxine [Synthroid] 75 mcg PO QDAC 07/04/13 09/27/19 PARoxetine [Paxil] 20 mg PO DAILY 07/04/13 09/27/19 Rasagiline [Azilect] 1 mg PO DAILY 07/04/13 09/27/19 oxyCODONE/ACET 5/325 [Percocet 5 1 - 2 each PO Q4-6H PRN 01/07/17 09/27/19 mg/325 mg] - Allergies Allergies/Adverse Reactions: Allergies Allergy/AdvReac Type Severity Reaction Status Date / Time No Known Drug Allergies Allergy Verified 01/07/17 03:49 Review of Systems - Constitutional Constitutional: reports: Fatigue, Other (Gets very easily hot, and in fact is telling us that her room is way too hot right now). denies: Fever, Chills, Malaise, Weakness, Poor appetite, Diaphoresis, Night sweats - Eyes Eyes: denies: Pain, Irritation, Amaurosis, Field loss, Vision loss - Ears, Nose & Throat Ears, Nose & Throat: denies: Ear pain, Hearing loss, Hearing aids, Vertigo, Sore throat, Hoarseness - Cardiovascular Cariovascular: reports: Lightheadedness (BP can be as low as 86/60), Other (uses recumbent bike for exercise. She says she uses it 5 days a week and has not done so for the last 2 to 3 months. Her son gently points out that he doubts that. He is willing to believer but he thinks that she has been using it much less on that for over a year.). denies: Irregular heart rate, Palpitations, Chest pain, Edema, Exertional dyspnea - Respiratory Respiratory: denies: Cough, Sputum production, Wheezing, Snoring, Orthopnea, SOB at rest, SOB with exertion - Gastrointestinal Gastrointestinal: reports: Constipation. denies: Abdominal pain, Abdominal distention, Diarrhea, Change in bowel habits, Rectal bleeding, Black stools, Bloody stools, Poor appetite - Genitourinary Genitourinary: reports: Frequency, Incontinence (Wears a pad on a daily basis for overflow as well as urge incontinence). denies: Dysuria, Urgency, Hematuria - Musculoskeletal Musculoskeletal: reports: Back pain, Muscle aches, Stiffness. denies: Muscle pain - Integumentary Integumentary: reports: Lesions (Followed on a regular basis by dermatology). denies: Rash, Pruritis - Neurological Neurological: reports: General weakness, Dizziness (orthostatic that can be very symptomatic), Incoordination. denies: Seizures - Psychiatric Psychiatric: reports: Depression, Anxiety. denies: Suicidal, Hallucinations - Endocrine Endocrine: reports: Intolerance to heat. denies: Polyuria, Polydypsia, Polyphagia - Hematologic/Lymphatic Hematologic/Lymphatic: denies: Anemia, Bruising, Petechiae Prior Level of Functionality: Her son lives with her because of his rheumatologic disease. But she is still able to take care of herself, feed herself. Orientation is been intact. She can be emotionally labile. Her daughter describes her as "having the emotional stability of a 4-year-old sometimes". The beginning of the day is pretty good for her. She usually does not start to use a walker till the end of the day and into the evening. She still drives herself to [place], throughout [place], down to [place]. Son and daughter prefer that she not drive on the interstate. Exam - Vital Signs Reviewed Vital Signs: Yes Vital Signs: Vital Signs x48h Temp Pulse Resp BP Pulse Ox 09/27/19 21:00 86 16 157/85 H 94 09/27/19 20:00 67 14 166/109 H 96 09/27/19 19:27 36.8 C 09/27/19 19:05 94 09/27/19 19:04 85 18 167/94 H 87 L 09/27/19 18:24 80 98 09/27/19 18:18 81 26 H 198/98 H 96 - Physical Exam General Appearance: positive: Moderate distress (she alternates between falling asleep or being agitated with dyskinesia, can't stop moving and cries out when moves her shoulder) Eyes Bilateral: positive: PERRL, EOMI ENT: positive: Pharynx nml, Other (no dysphagia unless she laughs too much, then chokes and coughs) Neck: positive: No JVD. negative: Stiff neck, Carotid bruit Respiratory: positive: Chest non-tender. negative: Wheezes, Rales, Rhonchi Cardiovascular: positive: Regular rate & rhythm. negative: Systolic murmur, Gallop/S4, Friction rub Peripheral Pulses: positive: 1+ Abdomen: positive: Non-tender, No organomegaly, Nml bowel sounds, No distention Skin: positive: Warm, Dry Extremities: positive: Non-tender Neurologic/Psychiatric: positive: Oriented x3, CN's nml (2-12). negative: Motor nml (laying on back, rises legs in air, flexing and extending at knees, constant rotating of ankles, nonstop movement. Left arm held close to body and cries out when it slides. Right arm and hand with resting tremor. Even though cries out and expresses anger and anixiety, face is bradykinesis) Conclusion/Plan - Problem List (1) Humeral surgical neck fracture Conclusion/Plan: At this time, it is not clear what the orthopedic plan is for this patient. She has opted to stay here as opposed to having definitive orthopedic consult tonight. We will await tomorrow's opinion. Son and daughter both state that the description of her stay will center around pain management until joint edema resolved then she will have surgery. They've been told this could be 2-5 days. Plan: At this time we will focus on pain management. I do not know if there is any restrictions such as a sling that orthopedics wanted. Qualifiers: Encounter type: initial encounter Fracture type: closed Fracture morphology: unspecified fracture morphology Fracture alignment: displaced Laterality: left Qualified Code(s): S42.212A - Unspecified displaced fracture of surgical neck of left humerus, initial encounter for closed fracture (2) Acute shoulder pain due to trauma Conclusion/Plan: This patient is already tolerant of opiates and that she takes is on a chronic basis because of chronic back pain. She takes percocet once to twice a day on a bad day, and one tablet once every 2 days on a good day. I will start her on increased oxycodone using 10 mg, fixed schedule, every 6 hours. Supplement with Dilaudid as needed IV. Start colace to avoid contributing to more constipation that is chronic for her. Qualifiers: Laterality: left Qualified Code(s): M25.512 - Pain in left shoulder; G89.11 - Acute pain due to trauma (3) Parkinsons disease Conclusion/Plan: Resume her usual medications. (4) Orthostatic dizziness Conclusion/Plan: When she was seen at her primary care provider's office this last fall, her orthostatic vital signs were normal. There was no orthostasis. However, this patient is fallen several times. Most likely due to gait ataxia, movement disorder from her Parkinson's. Once her pain is controlled, tomorrow, will do orthostatic vitals for completeness sake and make sure were not missing a diagnosis of orthostatic syncope. She denies this is the reason she fell. (5) Osteoporosis Conclusion/Plan: Although her DEXA scans in the past have only showed osteopenia that is mild to moderate, she is never had a T score of -2.5 or greater. But she is fallen s everal times and has wedge compression fractures of T-spine. I would recommend calcium and vitamin D replacement therapy on a daily basis. I would also recommend Prolia every 6 months or Zometa once a year. Qualifiers: Osteoporosis type: age-related (6) Hypokalemia Conclusion/Plan: Supplement p.o. and recheck in the morning - Lab Results Lab results reviewed: Yes Fish Bones: 09/27/19 18:22 09/27/19 18:22 - Diagnostic Imaging Results Diagnostic Imaging Results: positive: Final report reviewed Diagnostic Imaging Results Comments: Upper extremity CT of the left shoulder shows her to have transverse fracture involving the surgical neck of the humerus with a full bone shaft with displacement of the humeral shaft medially. There are several residual comminuted fracture fragments laterally. Humerus x-ray shows a completely displaced humeral neck fracture Cervical spine CT has no evidence of C-spine fracture or dislocation. Core Measures - Anticipated LOS I expect patient to be DC'd or transferred within 96 hours.: Yes - DVT/VTE - Prophylaxis VTE/DVT Device ordered at admit?: Yes
[2019-09-27] MEDS ORDERED: SODIUM CHLORIDE 0.9% 1,000 ML IV SCH (23:00)
[2019-09-27] MEDS ORDERED: HYDROcod/ACETAM 10 MG/325 MG TABLET PO SCH (23:00)
[2019-09-28] MEDS ORDERED: polyethylene glycoL 3350 17 GM PACKET PO PRN (00:24)
[2019-09-28] MEDS: HYDROmorphone 0.5 MG/0.5 ML SYRINGE IVP PRN ×8 (00:33→22:45)
[2019-09-28] MEDS: DOCUSATE SODIUM 250 MG CAPSULE PO SCH ×2 (00:56→08:30)
[2019-09-28] MEDS: CARBIDOPA/LEVODOPA 10 MG/100 MG TABLET PO SCH ×2 (00:56→05:19)
[2019-09-28] MEDS: SODIUM CHLORIDE FLUSH 0.9% 10 ML SYRINGE IVP SCH ×3 (02:23→15:52)
[2019-09-28] MEDS: HYDROcod/ACETAM 10 MG/325 MG TABLET PO SCH ×6 (02:25→21:57)
[2019-09-28] MEDS ORDERED: POTASSIUM CHLORIDE 20 MEQ TABLET PO ONE (02:46)
[2019-09-28 05:52] LABS: BASOPHILS % (AUTO) 0.4 %; EOSINOPHILS % (AUTO) 0.2 %; HGB - HEMOGLOBIN 10.6 g/dL (12.0-16.0); LYMPHOCYTES % (AUTO) 18.9 %; MEAN CORPUSCULAR HGB CONC 31.8 g/dL (32.0-36.0); MEAN CORPUSCULAR VOLUME 94.3 fL (81.0-99.0); MEAN PLATELET VOLUME 10.3 fL (7.9-10.8); MONOCYTES # (AUTO) 0.6 10^3/uL (0.0-1.0); MONOCYTES % (AUTO) 10.5 %; NEUTROPHILS # (AUTO) 3.7 10^3/uL (1.5-6.6); NEUTROPHILS % (AUTO) 69.6 %; PLT - PLATELET COUNT 153 10^3/uL (130-450); RED BLOOD COUNT 3.53 10^6/uL (4.20-5.40); WHITE BLOOD COUNT 5.4 x10^3/uL (4.8-10.8)
[2019-09-28] MEDS: LEVOTHYROXINE 75 MCG TABLET PO SCH (06:21)
[2019-09-28] MEDS: PARoxetine 10 MG TABLET PO SCH (08:30)
[2019-09-28] MEDS: CARBIDOPA/LEVODOPA 25 MG/100 MG TABLET PO SCH ×4 (08:30→22:07)
[2019-09-28] MEDS ORDERED: CARBIDOPA/LEVODOPA 10 MG/100 MG TABLET PO SCH (09:00)
--- NOTE | 2019-09-28 09:04 | PHARMACY PROGRESS NOTE ---
- Best Possible Medication History Admit Date and Time: 09/27/19 2234 Processed by: Pharmacy Medication History completed: Yes Patient Interview: Completed Secondary Source(s): Other family member, Pharmacy records, Insurance records As the person ultimately responsible for medication therapy, providers are able to order a medication from an existing home medication list in [facility] via the "Reconcile Routine" prior to Confirmation of that medication by operations support manager. Such practice is discouraged except when the physician, in their clinical judgment, deems that a medical need exists for a medication without regard to previous use.
--- NOTE | 2019-09-28 10:49 | CONSULTATION NOTE ---
Referring Provider Name of Referring Provider:: Jerod Kaufman MD Consult Date: 09/28/19 Chief Complaint - Chief Complaint Chief Complaint: Asked to evaluate for left proximal humerus fracture History of Present Illness - History Obtained From History obtained from: Dr. Frank, patient, daughter, son - History of Present Illness HPI Comment/Other: Patient is a 74-year-old female with Parkinson's disease as well as multiple medical history in her usual state of health until yesterday when she sustained a mechanical fall striking a bookshelf with her left shoulder. She was brought to the emergency room found to have a proximal humerus fracture x-ray and CT were taken. The injury was discussed with emergency medicine physician and it was felt that the patient would likely need surgery. Patient was reportedly admitted for pain control. Patient is now seen in consultation with her daughter and son present at the bedside. She denies other traumatic complaints just left shoulder pain less at rest and worse when she tries to move. She denies other left upper extremity traumatic complaints at this time. History - Past Medical History Cardiovascular: reports: Hypertension (in the past but hasn't been on meds for a very long time) Respiratory: reports: None Neuro: reports: Parkinson's (presented as fine tremor right hand 2007 with falls. Seen by Neurology 05/2009 [facility] Phipps then [facility] and then [facility] 2011. ) Endocrine/Autoimmune: reports: HyPOthyroidism GI: reports: None EQUIPMENT SALES SPECIALIST: reports: Fibroids : reports: None HEENT: reports: Other (vitreous detachments OU) Psych: reports: Depression (with SSRI started 2005.), Anxiety, Panic attacks Musculoskeletal: reports: Osteopenia (with T score -1.1 femur 08/10), Chronic back pain (Started in L spine 2010 and included T spine by 2011. MRI shows wedge fx of midthoracic. Has fallen several times w one down stairs 2012 and worse compression fx. Started on opiates 02/2014.), Other (Extremely sensitive to pain in general. A blood pressure cuff will cause her to cry out, her son accidentally bumping up against her will cause her to cry out in pain.) Derm: reports: Other (AK and SK followed by dermatology) MRSA Hx?: No - Past Surgical History General: reports: Cholecystectomy (1970), Appendectomy (incidental with lita), Colonoscopy (2005) /EQUIPMENT SALES SPECIALIST: reports: Dilation and currettage (1991), Hysterectomy, Other (Cone biopsy of cervix 1991) HEENT: reports: Rhinoplasty (3 times) - Family & Social History Family History Comment/Other: Father at age 78. He had a history of hypertension. of a stroke after bypass surgery. Mother had osteoporosis. She had 2 sisters and 1 brother. Her brother had hypertension. Children are healthy with one having Deepika's syndrome/RA and lives with her. Living arrangement: At home Living Situation: With family Social History Notes: Mitch smoked. Has no history of alcohol abuse. Has no history of recreational substance abuse. She has been since 2005. 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 - Substance History Use: Uses substance without health or social issues: NONE Abuse: Recurrent use of substance despite neg consequences: NONE Dependence: Experiences withdrawal or developed tolerances: NONE - POLST Patient has POLST: No POLST Status: Full Code Meds/Allgy - Home Medications Home Medications: Ambulatory Orders Medication Instructions Recorded Confirmed Levothyroxine [Synthroid] 75 mcg PO QPM 07/04/13 09/28/19 PARoxetine [Paxil] 20 mg PO DAILY 07/04/13 09/27/19 Rasagiline [Azilect] 1 mg PO DAILY 07/04/13 09/27/19 oxyCODONE/ACET 5/325 [Percocet 5 1 each PO Q4-6H PRN 01/07/17 09/28/19 mg/325 mg] Carbidopa/Levodopa 25/100 [Sinemet 1.5 each PO Q4H 09/28/19 09/28/19 25 mg/100 mg] Carbidopa/Levodopa ER 25/100 1 each PO QPM 09/28/19 09/28/19 [Sinemet Cr 25 mg/100 mg] raNITIdine [Zantac] 150 mg PO DAILY 09/28/19 09/28/19 - Allergies Allergies/Adverse Reactions: Allergies Allergy/AdvReac Type Severity Reaction Status Date / Time No Known Drug Allergies Allergy Verified 01/07/17 03:49 Exam - Vital Signs Vital Signs: Vital Signs x48h Temp Pulse Resp BP Pulse Ox 09/28/19 08:00 36.3 C L 74 20 116/85 H 09/28/19 03:53 36.5 C 70 16 125/74 94 - Physical Exam Comments/Other: Patient well-developed somewhat overweight 74-year-old female in mild distress. She is alert and oriented x3 cooperative with exam and in no obvious cardiovascular distress. Patient's left upper extremity initially found in a an extended position at the shoulder with her sling partially off the elbow posteriorly. Left upper extremity she demonstrates radial median ulnar motor and sensory function. She is not asked to fire the deltoid. Possible decreased subjective sensation deltoid region. Arm and form compartments soft there is ecchymosis of the arm towards the axilla and mid arm. She has no tenderness about elbow wrist forearm hand. She moves her digits and wrist comfortably. Conclusion/Plan - Diagnosis Diagnosis: Left proximal humerus fracture - Plan Plan: Claudia is a 74-year-old female with multiple medical history with left proximal humerus fracture. There is approximately 100% translation of the diaphysis relative to the metaphysis of the proximal humerus. There is minimal comminution. We discussed with them radiographic parameters for operative and nonoperative treatment. I do believe that she would benefit from operative treatment and have discussed this with the family. We did discuss timing. We discussed resource availability for surgery and will be in touch with the OR in this regard. They indicate that they are not sure given a discussion that reportedly occurred last evening that the patient's insurance would cover any of her hospital stay or her operation. They say that this is a concern of theirs. They note that they will be in touch with the case finishing machine adjuster today and with her insurer. I highlighted the importance of patient's comfort and safety first and foremost. As such, if her pain is well controlled, then it may be reasonable for her to be discharged and re-present for operative treatment. If this is unable to happen then it may also be reasonable to proceed with operative intervention during this admission. We did advise on positioning which I do recommend sitting up as well as relaxation of the left shoulder girdle muscles allowing gravity to help. Patient will continue pain medication therapy IV and/or oral. We will continue to be in touch with the patient's hospitalist as well as case finishing machine adjuster and the patient's family regarding their preferences moving forward. We did discuss the case with the case finishing machine adjuster immediately after this examination. - Lab Results Lab results reviewed: Yes Fish Bones: 09/28/19 05:34 09/28/19 05:34 - Diagnostic Imaging Results Diagnostic Imaging Results Comments: Left comminuted displaced proximal humerus fracture at surgical neck.
--- NOTE | 2019-09-28 17:47 | PROVIDER PROGRESS NOTE ---
Subjective - Prog Note Date Prog Note Date: 09/28/19 Prog Note Time: 17:44 - Subjective Pt reports feeling: Improved Subjective: Claudia is sleeping upon my initial exam, awakes easily with voices in the room, then appears very alert. She denies chest pain, a new cough, nausea, vomiting, loss of appetite, confusion, or abdominal pain. She requests pain medication a few times while in the room, and does not fall back asleep during this time. Her daughter, Jennifer is at the bedside and notes that they are grateful to be able to stay in the hospital for more aggressive pain control. Current Medications - Current Medications Current Medications: Active Medications: Acetaminophen (Tylenol) 650 mg PO Q4HR PRN Hydrocodone Bitart/Acetaminophen ([place] 10 Mg/325 Mg) 1 tab PO Q4H ELLIOT Carbidopa/Levodopa (Sinemet 25 Mg/100 Mg) 1.5 tab PO Q4H ELLIOT Carbidopa/Levodopa (Sinemet Cr 25 Mg/100 Mg) 1 tab PO QPM ELLIOT Docusate Sodium (Colace 250mg Capsule) 250 mg PO DAILY E[facility]IOT Hydromorphone HCl (Dilaudid Inj Syringe) 0.5 mg IVP Q2H PRN Levothyroxine Sodium (Synthroid) 75 mcg PO QDAC E[facility]IOT Ondansetron HCl (Zofran Inj) 4 mg IVP Q6HR PRN Ondansetron HCl (Zofran Odt) 4 mg TL Q6HR PRN Paroxetine HCl (Paxil) 10 mg PO DAILY E[facility]IOT Polyethylene Glycol (Miralax) 17 gm PO DAILY PRN Home meds: Levothyroxine [Synthroid] 75 mcg PO QPM 07/04/13 PARoxetine [Paxil] 20 mg PO DAILY 07/04/13 Rasagiline [Azilect] 1 mg PO DAILY 07/04/13 oxyCODONE/ACET 5/325 [Percocet 5 mg/325 mg] 1 each PO Q4-6H PRN 01/07/17 Carbidopa/Levodopa 25/100 [Sinemet 25 mg/100 mg] 1.5 each PO Q4H 09/28/19 Carbidopa/Levodopa ER 25/100 [Sinemet Cr 25 mg/100 mg] 1 each PO QPM 09/28/19 raNITIdine [Zantac] 150 mg PO DAILY 09/28/19 Objective - Vital Signs/Intake & Output Reviewed Vital Signs: Yes Vital Signs: Vital Signs x48h Temp Pulse Resp BP Pulse Ox 09/28/19 15:32 36.4 C L 68 20 119/63 99 Intake & Output: Intake & Output 09/25/19 09/26/19 09/27/19 09/28/19 23:59 23:59 23:59 23:59 Intake Total 1660 Output Total 325 Balance 1335 - Objective General Appearance: positive: No acute distress, Alert, Lethargic Eyes Bilateral: positive: No lid inflammation Eyes: OU Conjunctivae pale ENT: positive: Pharyngeal erythema, Dry mucous membranes Neck: positive: No JVD, Trachea midline Respiratory: positive: Chest non-tender, No respiratory distress, Other (diminished, bilaterally) Cardiovascular: positive: Regular rate & rhythm, No gallop, Systolic murmur, Decreased pulse(s) Peripheral Pulses: 1+ Radial (R), 1+ Radial (L), 1+ Femoral (R), 1+ Femoral (L) Abdomen: positive: Non-tender, Nml bowel sounds (soft, obese), Hepatomegaly Back: positive: Nml inspection Skin: positive: No rash, Warm, Dry, Pallor (pale) Extremities: positive: Non-tender, Pedal edema, Joint swelling (chronic) Neurologic/Psychiatric: positive: Oriented x3, CN's nml (2-12), Motor nml, Weakness, Sensory loss, Depressed mood/affect, Other (baseline resting tremor) Reflexes: Bicep (R): 3+, Bicep (L): 0 - Lab Results Fish Bones: 09/28/19 05:34 09/28/19 05:34 Other Labs: Lab Results x24hrs 09/28/19 09/28/19 09/27/19 Range/Units 05:34 05:34 18:22 WBC 5.4 (4.8-10.8) x10^3/uL RBC 3.53 L (4.20-5.40) 10^6/uL Hgb 10.6 L (12.0-16.0) g/dL Hct 33.3 L (37.0-47.0) % MCV 94.3 (81.0-99.0) fL MCH 30.0 (27.0-31.0) pg MCHC 31.8 L (32.0-36.0) g/dL RDW 13.0 (12.0-15.0) % Plt Count 153 (130-450) 10^3/uL MPV 10.3 (7.9-10.8) fL Neut # (Auto) 3.7 (1.5-6.6) 10^3/uL Lymph # (Auto) 1.0 L (1.5-3.5) 10^3/uL [place] # (Auto) 0.6 (0.0-1.0) 10^3/uL Eos # (Auto) 0.0 (0.0-0.7) 10^3/uL Baso # (Auto) 0.0 (0.0-0.1) 10^3/uL Absolute Nucleated RBC 0.00 x10^3/uL Nucleated RBC % 0.0 /100WBC PT (9.9-12.6) secs INR (0.8-1.2) Sodium 139 (135-145) mmol/L Potassium 3.9 3.4 L (3.5-5.0) mmol/L Chloride 107 (101-111) mmol/L Carbon Dioxide 26 (21-32) mmol/L Anion Gap 6.0 (6-13) BUN 15 (6-20) mg/dL Creatinine 0.7 (0.4-1.0) mg/dL Estimated GFR (MDRD) 82 L (>89) Glucose 119 H (70-100) mg/dL Calcium 8.0 L (8.5-10.3) mg/dL 09/27/19 09/27/19 Range/Units 18:22 18:22 WBC 9.9 (4.8-10.8) x10^3/uL RBC 4.10 L (4.20-5.40) 10^6/uL Hgb 12.0 (12.0-16.0) g/dL Hct 37.8 (37.0-47.0) % MCV 92.2 (81.0-99.0) fL MCH 29.3 (27.0-31.0) pg MCHC 31.7 L (32.0-36.0) g/dL RDW 12.8 (12.0-15.0) % Plt Count 159 (130-450) 10^3/uL MPV 10.3 (7.9-10.8) fL Neut # (Auto) 8.3 H (1.5-6.6) 10^3/uL Lymph # (Auto) 0.9 L (1.5-3.5) 10^3/uL [place] # (Auto) 0.7 (0.0-1.0) 10^3/uL Eos # (Auto) 0.0 (0.0-0.7) 10^3/uL Baso # (Auto) 0.0 (0.0-0.1) 10^3/uL Absolute Nucleated RBC 0.00 x10^3/uL Nucleated RBC % 0.0 /100WBC PT 12.7 H (9.9-12.6) secs INR 1.1 (0.8-1.2) Sodium (135-145) mmol/L Potassium (3.5-5.0) mmol/L Chloride (101-111) mmol/L Carbon Dioxide (21-32) mmol/L Anion Gap (6-13) BUN (6-20) mg/dL Creatinine (0.4-1.0) mg/dL Estimated GFR (MDRD) (>89) Glucose (70-100) mg/dL Calcium (8.5-10.3) mg/dL ABX Reporting Has patient been on IV antibiotics over the past 48 hours?: No Assessment/Plan - Problem List (1) Humeral surgical neck fracture Impression: -Initial encounter, closed fracture, displaced, left surgical neck of humerus -Orthopedic surgery, Dr. Rios was consulted, examined today -Since [place] approval, plans to proceed with a surgical intervention are underway -Patient changed to inpatient status -Tentative plans for Sunday09/29/2019 -Dr. Rios explained to the patient and her family about proper mechanics to ensure the most optimal comfort -The fractured humerus would be most comfortable in a sitting position, with sling support, so the arm is essentially hanging, rather than being propped up Acute shoulder pain due to trauma -Left shoulder/arm pain, noted also to have moderate bruising in axillia -Patient takes oxycodone/APAP 5/325mg 1 tablet every 4-6 hours on a daily basis for her chronic back pain -Hydrocodone has been covering her pain, with IV dilaudid for breakthrough pain -Given her acute pain, this oral narcotic is scheduled to offer the most relief -Proper mechanics should be maintained, as per Dr. Rios, ortho with the use of a left arm sling Parkinsons disease -Sinemet scheduled Q4 hours at home, and extended release for HS -Continues while in the hospital -Patient displays a resting tremor -Patient admits to her official diagnosis being in 2008 -Patient admits to more frequent falls since being diagnosed, bone loss Orthostatic dizziness -Clinic visit notes reviewed upon admission and note: Seen by her PCP's office after her last fall- orthostatic vital signs were normal -Patient admits to have fallen several times -Likely due to disease progression, chronic narcotics, gait ataxia, movement disorder from her Parkinson's -After pain is controlled, orthostatic vitals will be ordered -Patient notes that she just trips over her feet, and denies LOC Osteoporosis -DEXA scans in the past have only showed osteopenia, mild to moderate, no T scores of -2.5 or greater -Several recent falls, progressive, now has a known wedge compression fractures of T-spine -Recommend calcium and vitamin D replacement therapy on a daily basis, also recommend Prolia every 6 months or Zometa once a year (per admission MD) Hypokalemia -Potassium on admit was a tad low at 3.4, improved to 3.9 after supplement -Routine labs, monitor and replace as needed Qualifiers:
[2019-09-28] MEDS: SODIUM CHLORIDE FLUSH 0.9% 10 ML SYRINGE IVP PRN ×2 (19:52→22:46)
[2019-09-28] MEDS: CARBIDOPA/LEVODOPA ER 25 MG/100 MG TABLET PO SCH (21:15)
[2019-09-29] MEDS: CARBIDOPA/LEVODOPA 25 MG/100 MG TABLET PO SCH ×5 (00:45→16:58)
[2019-09-29] MEDS: HYDROmorphone 0.5 MG/0.5 ML SYRINGE IVP PRN ×5 (00:46→11:53)
[2019-09-29] MEDS: SODIUM CHLORIDE FLUSH 0.9% 10 ML SYRINGE IVP SCH ×3 (00:46→16:58)
[2019-09-29] MEDS: HYDROcod/ACETAM 10 MG/325 MG TABLET PO SCH ×6 (02:27→21:36)
[2019-09-29] MEDS: LEVOTHYROXINE 75 MCG TABLET PO SCH (06:24)
--- NOTE | 2019-09-29 07:55 | MISCELLANEOUS PROVIDER NOTE ---
Miscellaneous Provider Note - - Note: Claudia seen and examined this morning. She notes that she is still in quite a bit of pain and is trying not to move. She continues to wear a sling. Her daughter is at the bedside. Patient's left upper extremity no neurovascular changes noted. Sling in acceptable position. Patient is somewhat recumbent in her bed. Claudia is a 74-year-old female with a left proximal humerus fracture. She is quite painful. We discussed the injury again today with her and her daughter. We talked about operative and nonoperative treatment options. We talked about potential operative risks including but not limited to infection, wound problems, nerve or blood vessel injury, bleeding, blood loss, numbness, tingling, weakness, pain, decreased function in any manner, worsening of her condition, malunion, non-union, need for additional procedures, iatrogenic injury, bleeding, blood loss, anesthetic complications including but not limited to major cardiovascular neurovascular complications even .Talked about the fact that there may be wrist not addressed here. The patient the patient's daughter had questions which were answered. They verbalized understanding above verbalized her wish to proceed with operative treatment. Informed consent was given. We talked about preoperative and postoperative instructions and expectations. Talked about potential rehabilitation course. They verbalized understanding agreement satisfaction with the above and wished to proceed with operative treatment proposed procedure noted below: Left proximal humerus open reduction internal fixation
[2019-09-29] MEDS: SODIUM CHLORIDE FLUSH 0.9% 10 ML SYRINGE IVP PRN ×2 (08:38→11:54)
--- NOTE | 2019-09-29 10:06 | PROVIDER PROGRESS NOTE ---
Subjective - Prog Note Date Prog Note Date: 09/29/19 Prog Note Time: 10:01 - Subjective Pt reports feeling: Improved Subjective: Claudia offers no complaints and denies chest pain, nausea, vomiting, diarrhea, a new rash, or confusion. She notes that she becomes tired after her IV dilaudid, but easily aroused. The patients son and daughter are present while the patient awaits surgery. Current Medications - Current Medications Current Medications: Active Medications: Acetaminophen (Tylenol) 650 mg PO Q4HR PRN Hydrocodone Bitart/Acetaminophen ([place] 10 Mg/325 Mg) 1 tab PO Q4H ELLIOT Carbidopa/Levodopa (Sinemet 25 Mg/100 Mg) 1.5 tab PO Q4H ELLIOT Carbidopa/Levodopa (Sinemet Cr 25 Mg/100 Mg) 1 tab PO QPM ELLIOT Docusate Sodium (Colace 250mg Capsule) 250 mg PO DAILY ELLIOT Famotidine (Pepcid) 20 mg PO DAILY E[facility]IOT Hydromorphone HCl (Dilaudid Inj Syringe) 0.5 mg IVP Q2H PRN Levothyroxine Sodium (Synthroid) 75 mcg PO QDAC E[facility]IOT Ondansetron HCl (Zofran Inj 4 mg IVP Q6HR PRN Ondansetron HCl (Zofran Odt) 4 mg TL Q6HR PRN Paroxetine HCl (Paxil) 10 mg PO DAILY ELLIOT Rasagiline [Azilect] (1 Mg) 1 each PO DAILY ELLIOT Polyethylene Glycol (Miralax) 17 gm PO DAILY PRN Home meds: Levothyroxine [Synthroid] 75 mcg PO QPM 07/04/13 PARoxetine [Paxil] 20 mg PO DAILY 07/04/13 Rasagiline [Azilect] 1 mg PO DAILY 07/04/13 oxyCODONE/ACET 5/325 [Percocet 5 mg/325 mg] 1 each PO Q4-6H PRN 01/07/17 Carbidopa/Levodopa 25/100 [Sinemet 25 mg/100 mg] 1.5 each PO Q4H 09/28/19 Carbidopa/Levodopa ER 25/100 [Sinemet Cr 25 mg/100 mg] 1 each PO QPM 09/28/19 raNITIdine [Zantac] 150 mg PO DAILY 09/28/19 Objective - Vital Signs/Intake & Output Reviewed Vital Signs: Yes Vital Signs: Vital Signs x48h Temp Pulse Resp BP Pulse Ox 09/29/19 08:00 36.6 C 87 20 163/83 H 96 Intake & Output: Intake & Output 09/26/19 09/27/19 09/28/19 09/29/19 23:59 23:59 23:59 23:59 Intake Total 2900 Output Total 475 300 Balance 2425 -300 - Objective General Appearance: positive: No acute distress, Alert, Anxious Eyes Bilateral: positive: No lid inflammation Eyes: OU Conjunctivae pale ENT: positive: Pharyngeal erythema, Dry mucous membranes Neck: positive: No JVD, Trachea midline, Stiff neck Respiratory: positive: Chest non-tender, No respiratory distress, Breath sounds nml, Other (diminished) Cardiovascular: positive: Regular rate & rhythm, No gallop Peripheral Pulses: 2+ Radial (R), 2+ Radial (L) Abdomen: positive: Non-tender, Nml bowel sounds, Other (obese, soft) Back: positive: Nml inspection Skin: positive: No rash, Warm, Dry, Pallor Extremities: positive: Pedal edema, Joint swelling (left shoulder, bruising noted) Neurologic/Psychiatric: positive: Oriented x3, CN's nml (2-12), Motor nml, Sensation nml, Mood/affect nml Reflexes: Bicep (R): 1+ - Lab Results Fish Bones: 09/28/19 05:34 09/28/19 05:34 ABX Reporting Has patient been on IV antibiotics over the past 48 hours?: No Assessment/Plan - Problem List (1) Humeral surgical neck fracture Impression: -Initial encounter, closed fracture, displaced, left surgical neck of humerus -Orthopedic surgery, Dr. Rios was consulted, examined today -Since [place] approval, plans to proceed with a surgical intervention are underway -Patient changed to inpatient status -Dr. Rios will perform a left shoulder repair today (09/29/2019) ~ 4pm -Clear liquid until 12 noon, then NPO -The fractured humerus would be most comfortable in a sitting position, with sling support, so the arm is essentially hanging, rather than being propped up Pre-operative exam -Based on the Revised cardiac risk index score the patient has a 3.9% 30-day risk of , WI, or cardiac arrest -The patient is not diabetic, no history of WI, no history of TIA, normal kidney function, and this surgery is considered a low risk surgery since it does not involve the Intraperitoneal; intrathoracic; OR suprainguinal vascular regions -Information was shared with the patient Acute shoulder pain due to trauma -Left shoulder/arm pain, noted also to have moderate bruising in axillia -Patient takes oxycodone/APAP 5/325mg 1 tablet every 4-6 hours on a daily basis for her chronic back pain -Hydrocodone has been covering her pain, with IV dilaudid for breakthrough pain -Given her acute pain, this oral narcotic is scheduled to offer the most relief -Proper mechanics should be maintained, as per Dr. Rios, ortho with the use of a left arm sling Parkinsons disease -Sinemet scheduled Q4 hours at home, and extended release for HS -Continues while in the hospital -Patient displays a resting tremor -Patient admits to her official diagnosis being in 2008 -Patient admits to more frequent falls since being diagnosed, bone loss -Patient can continue to take her medications until surgery today with a sip of water Orthostatic dizziness -Clinic visit notes reviewed upon admission and note: Seen by her PCP's office after her last fall - orthostatic vital signs were normal -Patient admits to have fallen several times -Likely due to disease progression, chronic narcotics, gait ataxia, movement disorder from her Parkinson's -After pain is controlled, orthostatic vitals will be ordered -Patient notes that she just trips over her feet, and denies LOC Osteoporosis -DEXA scans in the past have only showed osteopenia, mild to moderate, no T scores of -2.5 or greater -Several recent falls, progressive, now has a known wedge compression fractures of T-spine -Recommend calcium and vitamin D replacement therapy on a daily basis, also recommend Prolia every 6 months or Zometa once a year (per admission MD) Hypokalemia -Potassium on admit was a tad low at 3.4, improved to 3.9 after supplement -Routine labs, monitor and replace as needed Qualifiers:
[2019-09-29] MEDS: RASAGILINE 1 MG PO SCH (10:30)
[2019-09-29] MEDS: FAMOTIDINE 20 MG TABLET PO SCH (10:31)
[2019-09-29] MEDS: DOCUSATE SODIUM 250 MG CAPSULE PO SCH (10:32)
[2019-09-29] MEDS: PARoxetine 10 MG TABLET PO SCH (10:32)
[2019-09-29] MEDS: LORazepam 0.5 MG TABLET PO PRN (12:30)
[2019-09-29 12:35] LABS: BASOPHILS % (AUTO) 0.4 %; EOSINOPHILS # (AUTO) 0.1 10^3/uL (0.0-0.7); EOSINOPHILS % (AUTO) 0.9 %; HGB - HEMOGLOBIN 10.3 g/dL (12.0-16.0); LYMPHOCYTES # (AUTO) 0.9 10^3/uL (1.5-3.5); LYMPHOCYTES % (AUTO) 17.1 %; MEAN CORPUSCULAR HEMOGLOBIN 29.7 pg (27.0-31.0); MEAN CORPUSCULAR HGB CONC 32.2 g/dL (32.0-36.0); MEAN CORPUSCULAR VOLUME 92.2 fL (81.0-99.0); MEAN PLATELET VOLUME 9.7 fL (7.9-10.8); MONOCYTES # (AUTO) 0.5 10^3/uL (0.0-1.0); MONOCYTES % (AUTO) 10.2 %; NEUTROPHILS # (AUTO) 3.7 10^3/uL (1.5-6.6); PLT - PLATELET COUNT 138 10^3/uL (130-450); RED BLOOD COUNT 3.47 10^6/uL (4.20-5.40); RED CELL DISTRIBUTION WIDTH 12.8 % (12.0-15.0); WHITE BLOOD COUNT 5.3 x10^3/uL (4.8-10.8)
[2019-09-29 12:47] LABS: CALCIUM 8.2 mg/dL (8.5-10.3); CREATININE 0.8 mg/dL (0.4-1.0); MAGNESIUM 1.9 mg/dL (1.7-2.8)
--- NOTE | 2019-09-29 13:07 | ANESTHESIA ---
Pre-Anesthesia VS, & Labs - Diagnosis Diagnosis Left proximal humerus fracture - Procedure ORIF Left humerous fracture Vital Signs: Temp Pulse Resp BP Pulse Ox 36.6 C 87 20 163/83 H 96 09/29/19 08:00 09/29/19 08:00 09/29/19 08:00 09/29/19 08:00 09/29/19 08:00 Height 5 ft 7 in Weight (kg) 91.5 kg Body Mass Index 31.6 - NPO Last Fluid Intake: Clear liquids at 1200 - Is Patient ?: Not Applicable - Lab Results Current Lab Results: Laboratory Tests 09/29/19 12:29: Sodium 135, Potassium 3.9, Chloride 99 L, Carbon Dioxide 27, Anion Gap 9.0, BUN 16, Creatinine 0.8, Estimated GFR (MDRD) 71 L, Glucose 109 H, Calcium 8.2 L, Magnesium 1.9 09/29/19 12:29: WBC 5.3, RBC 3.47 L, Hgb 10.3 L, Hct 32.0 L, MCV 92.2, MCH 29.7, MCHC 32.2, RDW 12.8, Plt Count 138, MPV 9.7, Neut # (Auto) 3.7, Lymph # (Auto) 0.9 L, [place] # (Auto) 0.5, Eos # (Auto) 0.1, Baso # (Auto) 0.0, Absolute Nucleated RBC 0.00, Nucleated RBC % 0.0 09/28/19 05:34: Potassium 3.9 09/28/19 05:34: WBC 5.4, RBC 3.53 L, Hgb 10.6 L, Hct 33.3 L, MCV 94.3, MCH 30.0, MCHC 31.8 L, RDW 13.0, Plt Count 153, MPV 10.3, Neut # (Auto) 3.7, Lymph # (Auto) 1.0 L, [place] # (Auto) 0.6, Eos # (Auto) 0.0, Baso # (Auto) 0.0, Absolute Nucleated RBC 0.00, Nucleated RBC % 0.0 09/27/19 18:22: Sodium 139, Potassium 3.4 L, Chloride 107, Carbon Dioxide 26, Anion Gap 6.0, BUN 15, Creatinine 0.7, Estimated GFR (MDRD) 82 L, Glucose 119 H, Calcium 8.0 L 09/27/19 18:22: PT 12.7 H, INR 1.1 09/27/19 18:22: WBC 9.9, RBC 4.10 L, Hgb 12.0, Hct 37.8, MCV 92.2, MCH 29.3, MCHC 31.7 L, RDW 12.8, Plt Count 159, MPV 10.3, Neut # (Auto) 8.3 H, Lymph # (Auto) 0.9 L, [place] # (Auto) 0.7, Eos # (Auto) 0.0, Baso # (Auto) 0.0, Absolute Nucleated RBC 0.00, Nucleated RBC % 0.0 Lab results reviewed: Yes Fish Bones: 09/29/19 12:29 09/29/19 12:29 Home Medications and Allergies Home Medications: Ambulatory Orders Carbidopa/Levodopa 25/100 [Sinemet 25 mg/100 mg] 1.5 each PO Q4H 09/28/19 Carbidopa/Levodopa ER 25/100 [Sinemet Cr 25 mg/100 mg] 1 each PO QPM 09/28/19 raNITIdine [Zantac] 150 mg PO DAILY 09/28/19 Active Medications Acetaminophen (Tylenol) 650 mg PO Q4HR PRN PRN Reason: Pain 1 to 4 Hydrocodone Bitart/Acetaminophen ([place] 10 Mg/325 Mg) 1 tab PO Q4H [facility] Last Admin: 09/29/19 10:56 Dose: 1 tab Carbidopa/Levodopa (Sinemet 25 Mg/100 Mg) 1.5 tab PO Q4H [facility] Last Admin: 09/29/19 10:30 Dose: 1.5 tab Carbidopa/Levodopa (Sinemet Cr 25 Mg/100 Mg) 1 tab PO QPM [facility] Last Admin: 09/28/19 21:15 Dose: 1 tab Docusate Sodium (Colace 250mg Capsule) 250 mg PO DAILY [facility] Last Admin: 09/29/19 10:32 Dose: 250 mg Famotidine (Pepcid) 20 mg PO DAILY [facility] Last Admin: 09/29/19 10:31 Dose: 20 mg Hydromorphone HCl (Dilaudid Inj Syringe) 0.5 mg IVP Q2H PRN PRN Reason: Pain 8 to 10 Last Admin: 09/29/19 11:53 Dose: 0.5 mg Levothyroxine Sodium (Synthroid) 75 mcg PO QDAC [facility] Last Admin: 09/29/19 06:24 Dose: 75 mcg Lorazepam (Ativan) 0.5 mg PO Q6H PRN PRN Reason: Anxiety Last Admin: 09/29/19 12:30 Dose: 0.5 mg Ondansetron HCl (Zofran Inj) 4 mg IVP Q6HR PRN PRN Reason: Nausea / Vomiting Ondansetron HCl (Zofran Odt) 4 mg TL Q6HR PRN PRN Reason: Nausea / Vomiting Paroxetine HCl (Paxil) 10 mg PO DAILY [facility] Last Admin: 09/29/19 10:32 Dose: 10 mg Rasagiline [Azilect] (1 Mg) 1 each PO DAILY [facility] Last Admin: 09/29/19 10:30 Dose: 1 each Polyethylene Glycol (Miralax) 17 gm PO DAILY PRN PRN Reason: Bowel Protocol Sodium Chloride (Normal Saline Flush 0.9%) 10 ml IVP PRN PRN PRN Reason: NEEDED PER PROVIDER ORDERS Last Admin: 09/29/19 11:54 Dose: 10 ml Sodium Chloride (Normal Saline Flush 0.9%) 10 ml IVP 0100,0900,1700 [facility] Last Admin: 09/29/19 08:22 Dose: 10 ml Levothyroxine [Synthroid] 75 mcg PO QPM 07/04/13 PARoxetine [Paxil] 20 mg PO DAILY 07/04/13 Rasagiline [Azilect] 1 mg PO DAILY 07/04/13 oxyCODONE/ACET 5/325 [Percocet 5 mg/325 mg] 1 each PO Q4-6H PRN 01/07/17 Carbidopa/Levodopa 25/100 [Sinemet 25 mg/100 mg] 1.5 each PO Q4H 09/28/19 Carbidopa/Levodopa ER 25/100 [Sinemet Cr 25 mg/100 mg] 1 each PO QPM 09/28/19 raNITIdine [Zantac] 150 mg PO DAILY 09/28/19 Allergies/Adverse Reactions: Allergies Allergy/AdvReac Type Severity Reaction Status Date / Time No Known Drug Allergies Allergy Verified 01/07/17 03:49 Anes History & Medical History - Anesthetic History Anesthesia Complications: reports: No previous complications - Medical History Cardiovascular: reports: Hypertension (in the past but hasn't been on meds for a very long time) Pulmonary: reports: None Gastrointestinal: reports: None Urinary: reports: None Neuro: reports: Parkinson's (presented as fine tremor right hand 2007 with falls. Seen by Neurology 05/2009 [facility] then [facility] and then [facility] 2011. ) Musculoskeletal: reports: Osteopenia (with T score -1.1 femur 08/10), Chronic back pain (Started in L spine 2010 and included T spine by 2011. MRI shows wedge fx of midthoracic. Has fallen several times w one down stairs 2012 and worse compression fx. Started on opiates 02/2014.), Other (Extremely sensitive to pain in general. 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) Smoking Status: Never smoker - Surgical History General: Cholecystectomy (1970), Appendectomy (incidental with ilta), Colonoscopy (2005) Eyes Ears Nose Throat (EENT): Rhinoplasty (3 times) Gynecologic: Dilation and currettage (1991), Hysterectomy, Other (Cone biopsy of cervix 1991) Exam General: Alert, Oriented x3, Cooperative, No acute distress Dental: WNL Mouth Openin Fingerbreadth Neck Mobility: Normal Mallampati classification: III Thyromental Distance: 4-6 cm Respiratory: Lungs clear, Normal breath sounds, No respiratory distress, No accessory muscle use Cardiovascular: Regular rate, Normal S1, Normal S2, No murmurs Mental/Cognitive Status: Alert/Oriented X3, Normal for patient Plan Anesthesia Type: General, Interscalene Block (Left, if needed for post op pain) Regional Block: Per Surgeon's request for Post Op pain control Consent for Procedure(s) Verified and Reviewed: Yes Code Status: Attempt Resuscitation ASA classification: 3-Severe systemic disease Is this case an emergency?: No
[2019-09-29] MEDS ORDERED: BUPIVACAINE 0.25% PF 30 ML VIAL ONE (16:17)
[2019-09-29] MEDS ORDERED: LACTATED RINGERS 1,000 ML IV ONE ×2 (16:47→18:42)
[2019-09-29] MEDS ORDERED: ROCURONIUM 50 MG/5 ML VIAL IVP ONE (16:47)
[2019-09-29] MEDS ORDERED: ePHEDrine 50 MG/ML VIAL IVP ONE (16:47)
[2019-09-29] MEDS ORDERED: NEOSTIGMINE 1 MG/1 ML 10 ML MDV IVP ONE (16:47)
[2019-09-29] MEDS ORDERED: ONDANSETRON 4 MG/2 ML VIAL IVP ONE (16:47)
[2019-09-29] MEDS ORDERED: PROPOFOL 200 MG/20 ML VIAL IVP ONE (16:47)
[2019-09-29] MEDS ORDERED: GLYCOPYRROLATE 1 MG/5 ML VIAL IVP ONE (16:47)
[2019-09-29] MEDS ORDERED: BUPIVACAINE 0.25% PF 30 ML VIAL SUBQ ONE ×2 (17:49)
[2019-09-29] MEDS ORDERED: SUGAMMADEX 200 MG/2 ML VIAL IVP ONE (18:57)
[2019-09-29] MEDS ORDERED: CARBIDOPA/LEVODOPA 25 MG/100 MG TABLET PO SCH (21:00)
[2019-09-29] MEDS: CARBIDOPA/LEVODOPA ER 25 MG/100 MG TABLET PO SCH (21:36)
[2019-09-30] MEDS: HYDROcod/ACETAM 10 MG/325 MG TABLET PO SCH ×6 (01:47→22:14)
[2019-09-30] MEDS: SODIUM CHLORIDE FLUSH 0.9% 10 ML SYRINGE IVP SCH ×3 (01:48→15:31)
[2019-09-30] MEDS: HYDROmorphone 0.5 MG/0.5 ML SYRINGE IVP PRN ×3 (02:27→23:08)
[2019-09-30] MEDS: SODIUM CHLORIDE FLUSH 0.9% 10 ML SYRINGE IVP PRN ×2 (02:27→23:09)
[2019-09-30] MEDS: CARBIDOPA/LEVODOPA 25 MG/100 MG TABLET PO SCH ×4 (06:19→16:16)
[2019-09-30] MEDS: LEVOTHYROXINE 75 MCG TABLET PO SCH (06:20)
--- NOTE | 2019-09-30 08:16 | IMMEDIATE POSTOPERATIVE NOTE ---
Immediate Postoperative Note - Procedure Note Procedure Date: 09/29/19 Pre-Op Diagnosis: Left proximal humerus fracture Procedure: Left proximal humerus open reduction internal fixation Post-Op Diagnosis: Same Primary Surgeon: Donaldo lee MD Resin Painter: None Anesthesia Type: General ET tube, Local Findings: As above Complications: No complications Estimated Blood Loss (in cc): 100 Drains, Catheters, Devices: None Specimens and Cultures: None Plan of Care: Patient underwent uncomplicated left proximal humerus open reduction internal fixation. She will be nonweightbearing left upper extremity should use sling should be encouraged to do wrist hand and elbow gentle motion but avoid active shoulder motion. Should avoid weightbearing left upper extremity. She would return to medical service with close orthopedic management. Recommend returning to normal medications as well as analgesic medications bowel regimen medications incentive spirometer every hour when awake SCD boots or foot pumps when in bed.
--- NOTE | 2019-09-30 08:21 | PROVIDER PROGRESS NOTE ---
Subjective - Prog Note Date Prog Note Date: 09/30/19 Prog Note Time: 15:00 - Subjective Pt reports feeling: Improved Subjective: Patient reports that she is in pain but notes that compared to preoperatively she is somewhat better.She says she is okay at rest if she tries to move she describes 8 out of 10 pain in the shoulder Objective - Vital Signs/Intake & Output Vital Signs: Vital Signs x48h Temp Pulse Resp BP Pulse Ox 09/30/19 03:56 36.7 C 80 16 123/70 97 Intake & Output: Intake & Output 09/27/19 09/28/19 09/29/19 09/30/19 23:59 23:59 23:59 23:59 Intake Total 2900 150 240 Output Total 475 1250 Balance 2425 -1100 240 - Lab Results Fish Bones: 09/29/19 12:29 09/29/19 12:29 Other Labs: Lab Results x24hrs 09/29/19 09/29/19 09/29/19 Range/Units 12:29 12:29 12:29 WBC 5.3 (4.8-10.8) x10^3/uL RBC 3.47 L (4.20-5.40) 10^6/uL Hgb 10.3 L (12.0-16.0) g/dL Hct 32.0 L (37.0-47.0) % MCV 92.2 (81.0-99.0) fL MCH 29.7 (27.0-31.0) pg MCHC 32.2 (32.0-36.0) g/dL RDW 12.8 (12.0-15.0) % Plt Count 138 (130-450) 10^3/uL MPV 9.7 (7.9-10.8) fL Neut # (Auto) 3.7 (1.5-6.6) 10^3/uL Lymph # (Auto) 0.9 L (1.5-3.5) 10^3/uL [place] # (Auto) 0.5 (0.0-1.0) 10^3/uL Eos # (Auto) 0.1 (0.0-0.7) 10^3/uL Baso # (Auto) 0.0 (0.0-0.1) 10^3/uL Absolute Nucleated RBC 0.00 x10^3/uL Nucleated RBC % 0.0 /100WBC Sodium 135 (135-145) mmol/L Potassium 3.9 (3.5-5.0) mmol/L Chloride 99 L (101-111) mmol/L Carbon Dioxide 27 (21-32) mmol/L Anion Gap 9.0 (6-13) BUN 16 (6-20) mg/dL Creatinine 0.8 (0.4-1.0) mg/dL Estimated GFR (MDRD) 71 L (>89) Glucose 109 H (70-100) mg/dL Calcium 8.2 L (8.5-10.3) mg/dL Magnesium 1.9 (1.7-2.8) mg/dL TSH 1.14 (0.34-5.60) uIU/mL - Other Results/Comments Other Results/Comments: Left upper extremity in sling. She demonstrates radial median ulnar motor and sensory function. He is able to actively range the hand and wrist. She can initiate elbow flexion. She continues to have subjective decreased sensation axillary nerve. She is not asked to actively range the shoulder. Arm and form compartments soft. Left deltopectoral incision dressing clean dry intact. Assessment/Plan - Problem List (1) Humeral surgical neck fracture Impression: Patient orthopedically stable postoperative day #1 status post left proximal humerus open reduction internal fixation Given her preoperative subjective numbness in the axillary nerve distribution there is expected to be some traction injury there which we will continue to observe. I recommend continued pain management per hospitalist team. Recommend nonweightbearing left upper extremity. She may actively range elbow wrist and hand. She should have sling in place though she met may let arm dangle for bathing if necessary. Wound and dressing should be kept clean dry intact. NO PT for left shoulder at this time. Patient may be discharged from orthopedic perspective if she is discharged to a safe environment with appropriate help. Recommend follow-up 10 to 14 days orthopedic clinic [phone]. She may follow- up sooner on an as-needed basis Above discussed with patient and patient's daughter questions answered they verbalized understanding agreement with above Qualifiers: Qualified Code(s): S42.212A - Unspecified displaced fracture of surgical neck of left humerus, initial encounter for closed fracture
[2019-09-30] MEDS: RASAGILINE 1 MG PO SCH (08:26)
--- NOTE | 2019-09-30 08:56 | XRAY Report ---
Reason: fx humerous Procedure Date: 09/29/2019 Accession Number: [id number] / [id number] Procedure: [place] - OR C-Arm Procedure CPT Code: Final Report FULL RESULT: EXAM: FLUOROSCOPIC GUIDANCE EXAM DATE: 09/29/2019 07:01 PM. CLINICAL HISTORY: Fracture of humerus. COMPARISON: None. FINDINGS: The fluoroscopic captured images demonstrate plate and screw construct securing a proximal humerus fracture. IMPRESSION: Fluoroscopic guidance provided for operative fixation of humerus fracture. Total fluoroscopy time: 0.3 minutes. Number of images: 3. RADIA
[2019-09-30] MEDS: SENNA 8.6 MG TABLET PO SCH (09:48)
[2019-09-30] MEDS: FAMOTIDINE 20 MG TABLET PO SCH (09:48)
[2019-09-30] MEDS: polyethylene glycoL 3350 17 GM PACKET PO SCH (09:51)
[2019-09-30] MEDS: PARoxetine 10 MG TABLET PO SCH (09:51)
[2019-09-30] MEDS: DOCUSATE SODIUM 250 MG CAPSULE PO SCH (09:51)
[2019-09-30 11:26] LABS: BASOPHILS % (AUTO) 0.2 %; EOSINOPHILS # (AUTO) 0.1 10^3/uL (0.0-0.7); EOSINOPHILS % (AUTO) 0.9 %; HGB - HEMOGLOBIN 8.9 g/dL (12.0-16.0); LYMPHOCYTES # (AUTO) 0.8 10^3/uL (1.5-3.5); MEAN CORPUSCULAR HGB CONC 31.6 g/dL (32.0-36.0); MEAN CORPUSCULAR VOLUME 91.9 fL (81.0-99.0); MEAN PLATELET VOLUME 9.8 fL (7.9-10.8); MONOCYTES # (AUTO) 0.7 10^3/uL (0.0-1.0); MONOCYTES % (AUTO) 12.2 %; NEUTROPHILS # (AUTO) 3.9 10^3/uL (1.5-6.6); NEUTROPHILS % (AUTO) 72.1 %; PLT - PLATELET COUNT 118 10^3/uL (130-450); RED BLOOD COUNT 3.07 10^6/uL (4.20-5.40); WHITE BLOOD COUNT 5.3 x10^3/uL (4.8-10.8)
[2019-09-30 11:41] LABS: ALBUMIN 2.9 g/dL (3.2-5.5); ALBUMIN/GLOBULIN RATIO 1.2 (1.0-2.2); ALKALINE PHOSPHATASE 57 IU/L (42-121); ALT ALANINE AMINOTRANSFERASE < 10 IU/L (10-60); AST ASPARTATE AMINOTRANSFERASE 29 IU/L (10-42); BUN - BLOOD UREA NITROGEN 13 mg/dL (6-20); CARBON DIOXIDE - CO2 27 mmol/L (21-32); CHLORIDE 100 mmol/L (101-111); CREATININE 0.8 mg/dL (0.4-1.0); GFR - MDRD 71 (>89); GLUCOSE 117 mg/dL (70-100); SODIUM 136 mmol/L (135-145); TOTAL PROTEIN 5.4 g/dL (6.7-8.2)
[2019-09-30 12:06] LABS: ABSOLUTE RETICS # AUTO 0.057 10^6/uL (0.020-0.110); RED BLOOD COUNT 3.11 10^6/uL (4.20-5.40)
[2019-09-30 12:34] LABS: FERRITIN 87.1 ng/mL (11.0-306.8)
[2019-09-30 12:51] LABS: % IRON SATURATION 11 % (20-50); IRON 25 ug/dL (28-170); TOTAL IRON BINDING CAPACITY 238 ug/dL (250-450); TRANSFERRIN 170 mg/dL (192-382)
--- NOTE | 2019-09-30 13:08 | Discharge Plan ---
Discharge Plan Problem Reviewed?: Yes Disposition: Home, Self Care Condition: Stable Prescriptions: Alendronate [Fosamax] 70 mg PO Q7D #1 tablet Calcium Carbonate/Vitamin D3 [Calcium 500-Vit D3 200 Tablet] 1 each PO DAILY #10 tablet Docusate Sodium 250Mg Capsule [Colace 250Mg Capsule] 250 mg PO DAILY PRN #10 capsule PRN Reason: Constipation HYDROcodone/ACET 10/325 [[place] 10 mg/325 mg] 1 tab PO Q4H PRN #30 tablet PRN Reason: Pain Diet: Regular Activity Restrictions: Activity as Tolerated Shower Restrictions: No (fall precaution) Assistance Devices: Sling Instruction Topics: Alendronate tablets, Acetaminophen Hydrocodone tablets or capsules, Osteoporosis Prevention Calcium Health Concerns: humeral surgical neck fracture Plan of Treatment: pain management with [place] PRN per prescribed. Recommend nonweightbearing left upper extremity. You may actively range elbow wrist and hand. you should have sling in place though you met may let arm dangle for bathing if necessary. Wound and dressing should be kept clean dry intact. NO PT for left shoulder at this time. Recommend follow-up 10 to 14 days orthopedic clinic [phone]. You may follow-up sooner on an as-needed basis. Care Goals: stabilization, improvement and healing of your humeral neck fracture Assessment: discussed with you and your family about the care plan, you understood. manager social work discussed with you and your family for discharge plan as well. Additional Instructions or Follow Up instructions: you may followup your PCP in one week, follow-up 10 to 14 days orthopedic clinic [phone]. Should your symptoms return or worsen, you may present ER or call 911 for help. No Smoking: If you smoke, Please STOP! Call for help. Follow-up with: Lisha Waller DO [Primary Care Provider] -
[2019-09-30] MEDS: LORazepam 0.5 MG TABLET PO PRN (13:49)
--- NOTE | 2019-09-30 14:41 | PROVIDER PROGRESS NOTE ---
Subjective - Prog Note Date Prog Note Date: 09/30/19 - Subjective Pt reports feeling: Improved Subjective: pt report she has no pain when she is on rest but pain come back when she exert her left arm. otherwise pt has no other complaints. surgeon signed off pt and recommend pt followup him. pt, and her family agreed to be d/c initially. But after, Patient's children stated they had a preference for [facility] in [place] for respite services. family signed ABN forum for overnight stay. Current Medications - Current Medications Current Medications: Active Medications Acetaminophen (Tylenol) 650 mg PO Q4HR PRN PRN Reason: Pain 1 to 4 Hydrocodone Bitart/Acetaminophen (Brewster 10 Mg/325 Mg) 1 tab PO Q4H [facility] Last Admin: 09/30/19 13:49 Dose: 1 tab Carbidopa/Levodopa (Sinemet Cr 25 Mg/100 Mg) 1 tab PO QPM [facility] Last Admin: 09/29/19 21:36 Dose: 1 tab Carbidopa/Levodopa (Sinemet 25 Mg/100 Mg) 1.5 tab PO 0600,0930,1300,1630 [facility] Last Admin: 09/30/19 13:49 Dose: 1.5 tab Docusate Sodium (Colace 250mg Capsule) 250 mg PO DAILY [facility] Last Admin: 09/30/19 09:51 Dose: 250 mg Enoxaparin Sodium (Lovenox) 40 mg SUBQ DAILY [facility] Famotidine (Pepcid) 20 mg PO DAILY [facility] Last Admin: 09/30/19 09:48 Dose: 20 mg Hydromorphone HCl (Dilaudid Inj Syringe) 0.5 mg IVP Q2H PRN PRN Reason: Pain 8 to 10 Last Admin: 09/30/19 02:27 Dose: 0.5 mg Levothyroxine Sodium (Synthroid) 75 mcg PO QDAC [facility] Last Admin: 09/30/19 06:20 Dose: 75 mcg Lorazepam (Ativan) 0.5 mg PO Q6H PRN PRN Reason: Anxiety Last Admin: 09/30/19 13:49 Dose: 0.5 mg Ondansetron HCl (Zofran Inj) 4 mg IVP Q6HR PRN PRN Reason: Nausea / Vomiting Ondansetron HCl (Zofran Odt) 4 mg TL Q6HR PRN PRN Reason: Nausea / Vomiting Paroxetine HCl (Paxil) 10 mg PO DAILY [facility] Last Admin: 09/30/19 09:51 Dose: 10 mg Rasagiline [Azilect] (1 Mg) 1 each PO DAILY [facility] Last Admin: 09/30/19 08:26 Dose: 1 each Polyethylene Glycol (Miralax) 17 gm PO DAILY PRN PRN Reason: Bowel Protocol Polyethylene Glycol (Miralax) 17 gm PO DAILY [facility] Last Admin: 09/30/19 09:51 Dose: Not Given Senna (Senokot) 8.6 - 17.2 mg PO DAILY [facility] Last Admin: 09/30/19 09:48 Dose: 17.2 mg Sodium Chloride (Normal Saline Flush 0.9%) 10 ml IVP PRN PRN PRN Reason: NEEDED PER PROVIDER ORDERS Last Admin: 09/30/19 02:27 Dose: 10 ml Sodium Chloride (Normal Saline Flush 0.9%) 10 ml IVP 0100,0900,1700 [facility] Last Admin: 09/30/19 13:52 Dose: 10 ml Levothyroxine [Synthroid] 75 mcg PO QPM 07/04/13 PARoxetine [Paxil] 20 mg PO DAILY 07/04/13 Rasagiline [Azilect] 1 mg PO DAILY 07/04/13 oxyCODONE/ACET 5/325 [Percocet 5 mg/325 mg] 1 each PO Q4-6H PRN 01/07/17 Carbidopa/Levodopa 25/100 [Sinemet 25 mg/100 mg] 1.5 each PO Q4H 09/28/19 Carbidopa/Levodopa ER 25/100 [Sinemet Cr 25 mg/100 mg] 1 each PO QPM 09/28/19 raNITIdine [Zantac] 150 mg PO DAILY 09/28/19 Objective - Vital Signs/Intake & Output Reviewed Vital Signs: Yes Vital Signs: Vital Signs x48h Temp Pulse Resp BP Pulse Ox 09/30/19 11:50 36.5 C 81 18 126/62 94 09/30/19 08:00 36.7 C 82 20 133/62 H 96 Intake & Output: Intake & Output 09/27/19 09/28/19 09/29/19 09/30/19 23:59 23:59 23:59 23:59 Intake Total 2900 150 640 Output Total 475 1250 400 Balance 2425 -1100 240 - Objective General Appearance: positive: No acute distress, Alert. negative: Lethargic Eyes Bilateral: positive: Normal inspection, PERRL, No lid inflammation ENT: positive: ENT inspection nml, Pharynx nml, No signs of dehydration. neg ative: Purulent nasal drainage, Pharyngeal erythema, Oral lesions Neck: positive: Nml inspection, Thyroid nml, No JVD, Trachea midline. negative: Thyromegaly, Lymphadenopathy (R), Lymphadenopathy (L), Stiff neck, Tracheal deviation Respiratory: positive: Chest non-tender, No respiratory distress, Breath sounds nml. negative: Wheezes, Rales, Rhonchi Cardiovascular: positive: Regular rate & rhythm, No murmur, No gallop. negative: Irregularly irregular, Extrasystoles, Tachycardia, Bradycardia, JVD present, Systolic murmur, Diastolic murmur Peripheral Pulses: 2+ Radial (R), 2+ Radial (L), 2+ Dorsalis pedis (R), 2+ Dorsalis pedis (L) Abdomen: positive: Non-tender, No organomegaly, Nml bowel sounds, No distention. negative: Tenderness, Guarding, Rebound Back: positive: Nml inspection. negative: CVA tenderness (R), CVA tenderness (L) Skin: positive: Color nml, No rash, Warm, Dry. negative: Cyanosis, Diaphoresis, Pallor Extremities: positive: Other (bruise at left upper arm and left shoulder from her fall. There is a dressing cover in the surgery site). negative: Pedal edema, Calf tenderness, Beverley's sign/cords Neurologic/Psychiatric: positive: Sensation nml. negative: Weakness, Sensory loss, Facial droop, Slurred/abnml speech, Depressed mood/affect - Lab Results Fish Bones: 09/30/19 11:21 09/30/19 11:21 Other Labs: Lab Results x24hrs 09/30/19 09/30/19 09/30/19 Range/Units 11:21 11:21 11:21 WBC (4.8-10.8) x10^3/uL RBC (4.20-5.40) 10^6/uL Hgb (12.0-16.0) g/dL Hct (37.0-47.0) % MCV (81.0-99.0) fL MCH (27.0-31.0) pg MCHC (32.0-36.0) g/dL RDW (12.0-15.0) % Plt Count (130-450) 10^3/uL MPV (7.9-10.8) fL Reticulocyte % (Auto) (0.5-2.3) % Neut # (Auto) (1.5-6.6) 10^3/uL Lymph # (Auto) (1.5-3.5) 10^3/uL [place] # (Auto) (0.0-1.0) 10^3/uL Eos # (Auto) (0.0-0.7) 10^3/uL Baso # (Auto) (0.0-0.1) 10^3/uL Absolute Nucleated RBC x10^3/uL Nucleated RBC % /100WBC Absolute Retic (0.020-0.110) 10^6/uL Sodium (135-145) mmol/L Potassium (3.5-5.0) mmol/L Chloride (101-111) mmol/L Carbon Dioxide (21-32) mmol/L Anion Gap (6-13) BUN (6-20) mg/dL Creatinine (0.4-1.0) mg/dL Estimated GFR (MDRD) (>89) Glucose (70-100) mg/dL Calcium (8.5-10.3) mg/dL Iron 25 L (28-170) ug/dL TIBC 238 L (250-450) ug/dL % Saturation 11 L (20-50) % Transferrin 170 L (192-382) mg/dL Ferritin 87.1 (11.0-306.8) ng/mL Total Bilirubin (0.2-1.0) mg/dL AST (10-42) IU/L ALT (10-60) IU/L Alkaline Phosphatase (42-121) IU/L Lactate Dehydrogenase 160 (91-225) IU/L Total Protein (6.7-8.2) g/dL Albumin (3.2-5.5) g/dL Globulin (2.1-4.2) g/dL Albumin/Globulin Ratio (1.0-2.2) Vitamin B12 101 L (180-914) pg/mL 09/30/19 09/30/19 09/30/19 Range/Units 11:21 11:21 11:21 WBC 5.3 (4.8-10.8) x10^3/uL RBC 3.11 L 3.07 L (4.20-5.40) 10^6/uL Hgb 8.9 L (12.0-16.0) g/dL Hct 28.2 L (37.0-47.0) % MCV 91.9 (81.0-99.0) fL MCH 29.0 (27.0-31.0) pg MCHC 31.6 L (32.0-36.0) g/dL RDW 13.0 (12.0-15.0) % Plt Count 118 L (130-450) 10^3/uL MPV 9.8 (7.9-10.8) fL Reticulocyte % (Auto) 1.83 (0.5-2.3) % Neut # (Auto) 3.9 (1.5-6.6) 10^3/uL Lymph # (Auto) 0.8 L (1.5-3.5) 10^3/uL [place] # (Auto) 0.7 (0.0-1.0) 10^3/uL Eos # (Auto) 0.1 (0.0-0.7) 10^3/uL Baso # (Auto) 0.0 (0.0-0.1) 10^3/uL Absolute Nucleated RBC 0.00 x10^3/uL Nucleated RBC % 0.0 /100WBC Absolute Retic 0.057 (0.020-0.110) 10^6/uL Sodium 136 (135-145) mmol/L Potassium 3.8 (3.5-5.0) mmol/L Chloride 100 L (101-111) mmol/L Carbon Dioxide 27 (21-32) mmol/L Anion Gap 9.0 (6-13) BUN 13 (6-20) mg/dL Creatinine 0.8 (0.4-1.0) mg/dL Estimated GFR (MDRD) 71 L (>89) Glucose 117 H (70-100) mg/dL Calcium 8.0 L (8.5-10.3) mg/dL Iron (28-170) ug/dL TIBC (250-450) ug/dL % Saturation (20-50) % Transferrin (192-382) mg/dL Ferritin (11.0-306.8) ng/mL Total Bilirubin 1.0 (0.2-1.0) mg/dL AST 29 (10-42) IU/L ALT < 10 L (10-60) IU/L Alkaline Phosphatase 57 (42-121) IU/L Lactate Dehydrogenase (91-225) IU/L Total Protein 5.4 L (6.7-8.2) g/dL Albumin 2.9 L (3.2-5.5) g/dL Globulin 2.5 (2.1-4.2) g/dL Albumin/Globulin Ratio 1.2 (1.0-2.2) Vitamin B12 (180-914) pg/mL ABX Reporting Has patient been on IV antibiotics over the past 48 hours?: No Sepsis Event Note (H) - Evaluation Current Stage of Sepsis: Ruled out Assessment/Plan - Problem List (1) Humeral surgical neck fracture Impression: 09/30 stable. s/p of humeral neck fracture repair. surgeon signed off pt, will followup surgeon after d/c per surgeon's recommendation, and will hold OT per surgeon's recommend. continue pain control. it seems current pain control regimen [place] 10 mg PRN is working for pt. Acute shoulder pain due to trauma stable, continue [place] 10 mg PRN Parkinsons disease stable, continue Sinemet scheduled Q4 hours at home, and extended release for HS Orthostatic dizziness stable, advise and educate pt for fall precaution Osteoporosis DEXA scans in the past have only showed osteopenia, mild to moderate, no T scores of -2.5 or greater continue calcium and vitamin D replacement therapy on a daily basis, also recommend Fosamax and followup PCP continue management. Qualifiers: Qualified Code(s): S42.212A - Unspecified displaced fracture of surgical neck of left humerus, initial encounter for closed fracture
[2019-09-30] MEDS: CARBIDOPA/LEVODOPA ER 25 MG/100 MG TABLET PO SCH (22:14)
[2019-10-01] MEDS: SODIUM CHLORIDE FLUSH 0.9% 10 ML SYRINGE IVP SCH ×2 (02:11→09:08)
[2019-10-01] MEDS: HYDROcod/ACETAM 10 MG/325 MG TABLET PO SCH ×3 (02:12→09:08)
[2019-10-01] MEDS ORDERED: BENZOCAINE/MENTHOL LOZENGE MM PRN (04:27)
[2019-10-01] MEDS: SODIUM CHLORIDE FLUSH 0.9% 10 ML SYRINGE IVP PRN (04:34)
[2019-10-01] MEDS: HYDROmorphone 0.5 MG/0.5 ML SYRINGE IVP PRN (04:34)
[2019-10-01 05:14] LABS: BASOPHILS % (AUTO) 0.4 %; EOSINOPHILS # (AUTO) 0.1 10^3/uL (0.0-0.7); EOSINOPHILS % (AUTO) 1.2 %; HGB - HEMOGLOBIN 9.2 g/dL (12.0-16.0); LYMPHOCYTES # (AUTO) 1.1 10^3/uL (1.5-3.5); MEAN CORPUSCULAR HGB CONC 31.2 g/dL (32.0-36.0); MEAN CORPUSCULAR VOLUME 93.1 fL (81.0-99.0); MEAN PLATELET VOLUME 10.2 fL (7.9-10.8); MONOCYTES # (AUTO) 0.7 10^3/uL (0.0-1.0); MONOCYTES % (AUTO) 12.8 %; NEUTROPHILS # (AUTO) 3.3 10^3/uL (1.5-6.6); PLT - PLATELET COUNT 146 10^3/uL (130-450); RED BLOOD COUNT 3.17 10^6/uL (4.20-5.40); WHITE BLOOD COUNT 5.1 x10^3/uL (4.8-10.8)
[2019-10-01 05:24] LABS: CALCIUM 8.2 mg/dL (8.5-10.3); CREATININE 0.7 mg/dL (0.4-1.0)
[2019-10-01] MEDS: CARBIDOPA/LEVODOPA 25 MG/100 MG TABLET PO SCH ×2 (06:04→09:08)
[2019-10-01] MEDS: LEVOTHYROXINE 75 MCG TABLET PO SCH (06:06)
--- NOTE | 2019-10-01 08:06 | OPERATIVE REPORT ---
DATE OF SERVICE: 09/29/2019 Physician: Cody Rios MD SURGEON: Cody Rios MD WORKDAY MANAGER: None. ANESTHESIA PROVIDER: Lola Carmona CRNA ANESTHESIA TYPE: General endotracheal anesthesia. FLUIDS: 1100 mL lactated Ringer's. ESTIMATED BLOOD LOSS: 100 mL COMPRESSION DEVICE: Bilateral calf SCD boots. PREOPERATIVE ANTIBIOTICS: Weight-based IV Ancef 2 g. ORTHOPEDIC IMPLANTS: A 3-hole proximal humerus locking plate, AO Synthes. PREOPERATIVE DIAGNOSIS: Left proximal humerus fracture, surgical neck displaced, comminuted. POSTOPERATIVE DIAGNOSIS: Left proximal humerus fracture, surgical neck displaced, comminuted. PERFORMED: Left shoulder proximal humerus open reduction and internal fixation. HISTORY OF PRESENT ILLNESS: Patient is a 74-year-old female who sustained a mechanical fall, struck her left shoulder on a bookshelf, found to have a proximal humerus fracture. Ultimately is admitted to the hospital for pain management control and indicated for operative treatment given the 100% disp lacement or translation of the shaft relative to the humeral head. She is noted to have some slight decreased axillary nerve function after the injury with subjective decreased sensation in that distri bution and poor deltoid firing. She had risks, benefits and alternatives discussed with her and her son and daughter with regard to the left proximal humerus ORIF. We talked about potential risks incl uding, but not limited to infection, wound problems, nerve or blood vessel injury, bleeding, blood lo ss, blood clot, blood clot embolus, positioning complications, anesthetic complications, iatrogenic i njury, need for additional procedures, failure to "cure" patient's problem, decreased function in any manner, worsening of her condition, pain, stiffness, weakness, inability to return to previous level of function, anesthetic risks including, but not limited to major cardiovascular and neurovascular c omplications, even . We talked about the fact that there may be other risks not addressed here. They verbalized understanding above and verbalized wish to proceed with operative treatment. Infor med consent is given. INTRAOPERATIVE FINDINGS: Noted to have 100% translated surgical neck fracture with significant displ acement and minimal comminution. This reduces to a near anatomic position with minimal impaction. T his is well fixed with a plate and screws. They are extraarticular. There is good range of motion a nd stability of the shoulder. No significant impingement of the plate on the acromion with range of motion. PROCEDURE IN DETAIL: On 09/29/2019, patient is identified in her hospital room. Her left shoulder i s signed. She is brought to the operating room. General anesthesia is administered. She is placed in a beach chair position. Head, neck and extremities placed in anatomically comfortable and safe po sition to avoid peripheral nerve stretch compression. Patient's left upper extremity is then draped out, pre-scrubbed with Hibiclens solution, alcohol, and then prepped and draped with ChloraPrep solut ion under sterile conditions. At this time, after previous confirmation of head, neck and extremity being in safe positions to avoi d iatrogenic injury, patient's left upper extremity is identified as the operative site for the shotodd ravindra. This is done during the surgical pause. At this time, deltopectoral incision is made through skin, spreading dissection carried out to the in terval, which is with the cephalic vein and deltoid brought laterally. At this point, a Reardon and lap pad are brought underneath the deltoid to clear this area. The conjoined tendon is identified thoug h somewhat injured as the fractured proximal humerus is adjacent to this, towards the axilla. This i s gently removed from this area with good relaxation from the anesthesia perspective and then a retra ctor is gently placed adjacent to the conjoined tendon and the deltoid. At this point, some bursal t issue is removed. The fracture site is gently curetted copiously irrigated. Some hematoma is remove d and then a reduction maneuver is performed with the help of a Reardon as a "shoe horn." This reduces t he fracture nicely and then a #5 FiberWire is placed in the tendo-osseous junction of the subscapular is, supraspinatus and infraspinatus. These are then placed through a 3-hole plate, which is placed o n the lateral aspect of the humerus adjacent to the bicipital groove. This is provisionally K-wired in place. Fluoroscopic images confirm appropriate fracture reduction and hardware placement. At thi s time, oval hole screw is placed, thereby compressing the plate up against the bone, further facilit ating even improved reduction. At this point, unicortical screws are placed proximally, locking in t he plate and 2 additional bicortical locking screws are placed in the shaft portion. This achieves e xcellent maintenance of reduction and stability of the construct. Fluoroscopic images used in multip le planes throughout to confirm appropriate fracture reduction and hardware placement. At this time, the fiber wires are tied over the plate and then the suture limbs are cut and then the knots are ove rsewn flush so that they have less chance of impingement. At this point, the wound is copiously irri gated. Final C-arm images are taken with AP internal and external rotation with axillary lateral aft er closure. At this time, the wound is copiously irrigated and hemostasis achieved. Deltopectoral interval is cl osed using 0 Vicryl. Skin is then closed using 0 Vicryl, 2-0 Vicryl, and interrupted nylon suture. Skin is washed, dried and silver dressing is applied. The patient is placed in a sling. There is local anesthetic infused around the incision prior to dressing placement. Please see mark anthony g report for further details. Patient tolerated the procedure well. Instrument and sponge counts were correct. Patient is transfe rred to the recovery room in stable condition. Patient will follow standard postoperative left proximal humerus ORIF protocol. Patient's family is contacted in patient's hospital room. Questions answered. Case discussed. They verbalized understanding and satisfaction with the plan as outlined. TD: 10/01/2019 07:38
[2019-10-01 08:09] VITALS: BP 150/72
--- NOTE | 2019-10-01 08:38 | Discharge Plan ---
"Discharge Plan for SNF / [facility] - Discharge Plan And Transition Orders Problem Reviewed?: Yes Disposition: 03 SNF DC/Xfer Condition: Stable Allergies and Adverse Reactions: Allergies Allergy/AdvReac Type Severity Reaction Status Date / Time No Known Drug Allergies Allergy Verified 01/07/17 03:49 Health Concerns: humeral surgical neck fracture, orthostatic dizziness, osteoporosis Plan of Treatment: your left shoulder and upper arm pain is managed well with [place] PRN per prescribed. Per your orthopedics surgeon Recommend, nonweightbearing on left upper extremity. You may actively range elbow wrist and hand. you should have sling in place though you met may let arm dangle for bathing if necessary. Wound and dressing should be kept clean dry intact. you should NO PT for left shoulder at this time. Recommend follow-up 10 to 14 days orthopedic clinic [phone]. You may follow-up sooner on an as-needed basis. For orthostatic dizziness, advise you stand slowly and walk safely and slowly, and keep you hydration. You are prescribed Calcium plus vitamin D, and Fosamax for your Osteoporosis. advise you followup your PCP for further management. Care Goals: stabilization, improvement and healing of your humeral neck fracture Assessment: discussed with you and your family about the care plan, you understood. social willis floresker discussed with you and your family for discharge plan as well. - SNF / LONG-TERM Transition Orders Admit to (Facility): [facility] Under the care of (Name): Dr. Hawa Waller Discharge Diagnosis: s/p left humeral neck fracture repair, Parkinson's disease, orthostatic dizziness, osteoporosis Medicare Certification Statement: I do not certify that [facility] care is medically necessary on a continuing basis for any of the conditions for which she/he is receiving c are during hospitalization. Notify PCP of admission and forward orders to primary provider for signature. Weight on admission and: Daily Call PCP immediately if weight increases by: 2 kg Other Notification Orders: Call PCP immediately if patient develops dyspnea, chest pain/tightness or edema. House Bowel Program: Yes Additional Bowel Program Orders: If no BM after 2 days, nurse may give M.O.M. 30ml PO PRN and/or ducolax Supp 1 GA and/or SAUNDRA 250mg P.O., and/or senna 1-2 tabs PO. On day 3 nurse may give repeat above order until residents constipation is resolved. Annual Influenza Vaccine (between May 04 and December 01): Yes Two-step PPD per [facility] [phone] or approved exception documents: Yes Treatments & Other Orders: you may followup your PCP in one week, follow-up in 10 to 14 days to orthopedic clinic [phone], or early as needed. Should your symptoms return or worsen, you may present ER or call 911 for help. Medication Orders: PLEASE REFER TO THE DISCHARGE MEDICATION LIST. Insulin Orders?: No - Medications New Prescriptions: Alendronate [Fosamax] 70 mg PO Q7D #1 tablet Calcium Carbonate/Vitamin D3 [Calcium 500-Vit D3 200 Tablet] 1 each PO DAILY #10 tablet Docusate Sodium 250Mg Capsule [Colace 250Mg Capsule] 250 mg PO DAILY PRN #10 capsule PRN Reason: Constipation HYDROcodone/ACET 10/325 [[place] 10 mg/325 mg] 1 tab PO Q4H PRN #30 tablet PRN Reason: Pain - Diet Type: Geriatric Texture: Regular Liquids: Thin May have monthly special meal: Yes - Therapies | Activity Rehabilitation Potential: Maximize functional status Activity: Activity as Tolerated Assistance Devices: Sling Additional Instructions: you may followup your PCP in one week, follow-up in 10 to 14 days to orthopedic clinic [phone] or early as needed. Should your symptoms return or worsen, you may present ER or call 911 for help."
--- NOTE | 2019-10-01 08:48 | DISCHARGE SUMMARY ---
Discharge Summary Admit Date: 09/27/19 Discharge Date: 10/01/19 Discharging Provider: Joao Hunter Primary Care Provider: Dr. Hawa Waller Condition at Discharge: Stable Discharge Disposition: 03 SNF DC/Xfer Discharge Facility Name: [facility] - DIAGNOSES Admission Diagnoses: (1) Humeral surgical neck fracture (2) Acute shoulder pain due to trauma (3) Parkinsons disease (4) Orthostatic dizziness (5) Osteoporosis (6) Hypokalemia Discharge Diagnoses with Status of Each Condition: (1) Humeral surgical neck fracture stable. pt's pain is good controlled by the prescribed [place] 10/325. pt is advise to followup orthopedics. orthopedics surgeon suggest no PT for pt at this time. advise pt followup orthopedics in 10-14 days or early as needed, and followup PCP. Orthopedics surgeon did not suggest for chemical DVT prophylaxis. I did discussed with pt about how to prevent of DVT although it is rare or less common, advise pt do range motion as she tolerate, continue pain control, and continue sling until she see orthopedics surgeon (2) Acute shoulder pain due to trauma stable/controlled. pt is prescribed Serena 10/325 PRN for pain control (3) Parkinsons disease stable (4) Orthostatic dizziness stable/resolved. pt state she felt much better. advise pt stand slowly and walk slowly, keep her hydration. (5) Osteoporosis sable, pt is prescribed Calcium/vitamin D, and Fosamax (6) Hypokalemia resolved (7)anemia stable. it is likely caused by acute blood loss from orthopedics surgery. Iron is interacted and contraindicated with Parkinsons meds, iron is hold now. pt has slight iron deficiency anemia. - HPI History of Present Illness: refer from Dr. Chavis's HPI on 09/27/2019 A 74-year-old white female who has Parkinson's disease. She lost balance, Tripped,fell against a bookshelf, and then on the ground. She was carrying items, one item in each hand. Was not using her walker. She had immediate left arm pain in the shoulder region. She was brought in screaming with pain by EMS. This is after 275 mcg of fentanyl. In our emergency room she has had difficulty control pain medication in spite of multiple Dilaudid injections. Our orthopedic surgeon will not be seeing her tonight and will see her tomorrow morning. Orthopedics at [facility] did accept her in transfer with the possibility of surgery early tomorrow. However the patient and family have opted to stay here. In review of her past medical history with Dr. Waller, she has a long-term use of opiates to control lumbar back pain, vertebral compression fractures. She does not have any severe cardiovascular disease. There is no high blood pressure, diabetes, COPD, smoking history, arrhythmia history, or valvular heart disease for her. If she does have to have surgery here, she appears to be at normal perioperative risk for cardiac event or illness. - HOSPITAL COURSE Hospital Course: pt was found fall in the home. pt's left humeral neck fracture was found. orthopedics surgeon did surgical repair for pt. pt's left should pain from injury was controlled. pt was prescribed Serena 10-325 for pain control. pt was released by orthopedics surgeon. pt was d/c to [facility] by pt's family's choice. The detail hospital course is as the below. (1) Humeral surgical neck fracture stable. pt's pain is good controlled by the prescribed Serena 10/325. pt is advise to followup orthopedics. orthopedics surgeon suggest no PT for pt at this time. advise pt followup orthopedics in 10-14 days or early as needed, and followup PCP. Orthopedics surgeon did not suggest for chemical DVT prophylaxis. I did discussed with pt about how to prevent of DVT although it is rare or less common, advise pt do range motion as she tolerate, continue pain control, and continue sling until she see orthopedics surgeon (2) Acute shoulder pain due to trauma stable/controlled. pt is prescribed Serena 10/325 PRN for pain control (3) Parkinsons disease stable (4) Orthostatic dizziness stable/resolved. pt state she felt much better. advise pt stand slowly and walk slowly, keep her hydration. (5) Osteoporosis sable, pt is prescribed Calcium/vitamin D, and Fosamax (6) Hypokalemia resolved (7)anemia stable. it is likely caused by acute blood loss from orthopedics surgery. Iron is interacted and contraindicated with Parkinsons meds, iron is hold now. pt has slight iron deficiency anemia. - ALLERGIES Allergies/Adverse Reactions: Allergies Allergy/AdvReac Type Severity Reaction Status Date / Time Sulfa (Sulfonamide Allergy Unknown Verified 10/02/19 07:10 Antibiotics) - MEDICATIONS Home Medications: Ambulatory Orders Medication Instructions Recorded Confirmed Levothyroxine [Synthroid] 75 mcg PO QPM 07/04/13 09/28/19 PARoxetine [Paxil] 20 mg PO DAILY 07/04/13 09/27/19 Rasagiline [Azilect] 1 mg PO DAILY 07/04/13 09/27/19 oxyCODONE/ACET 5/325 [Percocet 5 1 each PO Q4-6H PRN 01/07/17 09/28/19 mg/325 mg] Carbidopa/Levodopa 25/100 [Sinemet 1.5 each PO Q4H 09/28/19 09/28/19 25 mg/100 mg] Carbidopa/Levodopa ER 25/100 1 each PO QPM 09/28/19 09/28/19 [Sinemet Cr 25 mg/100 mg] raNITIdine [Zantac] 150 mg PO DAILY 09/28/19 09/28/19 Alendronate [Fosamax] 70 mg PO Q7D #1 tablet 09/30/19 Calcium Carbonate/Vitamin D3 1 each PO DAILY #10 tablet 09/30/19 [Calcium 500-Vit D3 200 Tablet] Docusate Sodium 250Mg Capsule 250 mg PO DAILY PRN #10 capsule 09/30/19 [Colace 250Mg Capsule] HYDROcodone/ACET 10/325 [Se[place] 10 1 tab PO Q4H PRN #30 tablet 09/30/19 mg/325 mg] - PHYSICAL EXAM AT DISCHARGE General Appearance: positive: No acute distress, Alert. negative: Lethargic Eyes Bilateral: positive: Normal inspection, PERRL, EOMI, No lid inflammation ENT: positive: ENT inspection nml, Pharynx nml, No signs of dehydration. negative: Purulent nasal drainage Neck: positive: Nml inspection, Thyroid nml, No JVD, Trachea midline. negative: Thyromegaly, Lymphadenopathy (R), Lymphadenopathy (L), Stiff neck, Tracheal deviation Respiratory: positive: Chest non-tender, No respiratory distress, Breath sounds nml. negative: Wheezes, Rales, Rhonchi Cardiovascular: positive: Regular rate & rhythm, No murmur, No gallop. negative: Irregularly irregular, Extrasystoles, Tachycardia, Bradycardia, JVD present, Systolic murmur, Diastolic murmur Peripheral Pulses: positive: 2+ Abdomen: positive: Non-tender, No organomegaly, Nml bowel sounds, No distention. negative: Tenderness, Guarding, Rebound Back: positive: Nml inspection. negative: CVA tenderness (R), CVA tenderness (L) Skin: positive: Color nml, No rash, Warm, Dry. negative: Cyanosis, Diaphoresis, Pallor Extremities: negative: Pedal edema, Calf tenderness, Beverley's sign/cords Neurologic/Psychiatric: positive: Sensation nml, Mood/affect nml. negative: Weakness, Sensory loss, Facial droop, Slurred/abnml speech, Depressed mood/affect - LABS Result Diagrams: 10/01/19 04:50 10/01/19 04:50 - SEPSIS Current Stage of Sepsis: Ruled out - FOLLOW UP Follow Up: your left shoulder and upper arm pain is managed well with [place] PRN per prescribed. Per your orthopedics surgeon Recommend, nonweightbearing on left upper extremity. You may actively range elbow wrist and hand. you should have sling in place though you met may let arm dangle for bathing if necessary. Wound and dressing should be kept clean dry intact. you should NO PT for left shoulder at this time. Recommend follow-up 10 to 14 days orthopedic clinic [phone]. You may follow-up sooner on an as-needed basis. For orthostatic dizziness, advise you stand slowly and walk safely and slowly, and keep you hydration. You are prescribed Calcium plus vitamin D, and Fosamax for your Osteoporosis. advise you followup your PCP for further management. you may followup your PCP in one week, follow-up in 10 to 14 days to orthopedic clinic [phone] or early as needed. Should your symptoms return or worsen, you may present ER or call 911 for help. - TIME SPENT Time Spent in Discharge (Minutes): 40
[2019-10-01] MEDS ORDERED: ENOXAPARIN 40 MG/0.4 ML SYRINGE SUBQ SCH (09:00)
[2019-10-01] MEDS: SENNA 8.6 MG TABLET PO SCH (09:07)
[2019-10-01] MEDS: polyethylene glycoL 3350 17 GM PACKET PO SCH (09:07)
[2019-10-01] MEDS: FAMOTIDINE 20 MG TABLET PO SCH (09:07)
[2019-10-01] MEDS: RASAGILINE 1 MG PO SCH (09:07)
[2019-10-01] MEDS: PARoxetine 10 MG TABLET PO SCH (09:07)
[2019-10-01] MEDS: DOCUSATE SODIUM 250 MG CAPSULE PO SCH (09:07)
== END 2019-10-01 09:30 | DRG 493 ==
LOC: EDUNIT# → ED 18:15 → MS2 22:31 → OBSVTOIN 09-28 15:13
PROVIDERS: ADMIT Specialist; ATTEND Nurse Practitioner Gerontology
PROC: 0PSG04Z Reposition Left Humeral Shaft with Internal Fixation Device, Open Approach (ICD-10-PCS; principal; 2019-09-29 16:30)
DX: S42.212A Unspecified displaced fracture of surgical neck of left humerus, initial encounter for closed fracture (principal); D62 Acute posthemorrhagic anemia; W01.190A Fall on same level from slipping, tripping and stumbling with subsequent striking against furniture, initial encounter; Y92.009 Unspecified place in unspecified non-institutional (private) residence as the place of occurrence of the external cause; E87.6 Hypokalemia; G89.29 Other chronic pain; M54.5 Low back pain; G20 Parkinson's disease; E03.9 Hypothyroidism, unspecified; F32.9 Major depressive disorder, single episode, unspecified; F41.0 Panic disorder [episodic paroxysmal anxiety]; M81.0 Age-related osteoporosis without current pathological fracture; L57.0 Actinic keratosis; L82.1 Other seborrheic keratosis; K59.00 Constipation, unspecified; R35.0 Frequency of micturition; R32 Unspecified urinary incontinence; R26.0 Ataxic gait; R42 Dizziness and giddiness; H43.813 Vitreous degeneration, bilateral; Z79.891 Long term (current) use of opiate analgesic; Z91.81 History of falling
CPT/HCPCS: 36415; 72125; 73060; 73200; 80048; 80053; 82607; 82728; 83540; 83615; 83735; 84132; 84443; 84466; 85025; 85045; 85610; 96361; 96374; 96375; 96376; 99285; A9270; C1713; G0378; J1170; J1650; J2060; J7120

== ENCOUNTER 2019-10-13 11:48 | Outpatient (CLI) | payer MEDICARE | END 2019-10-13 11:49 | disposition EMS.NT | LOC: EMS 11:48 | PROVIDERS: ATTEND Surgery | DX: R42 Dizziness and giddiness (principal) ==

== ENCOUNTER 2020-04-20 16:29 | Outpatient (CLI) | payer MEDICARE ==
--- NOTE | 2020-04-21 11:36 | DEXA Report ---
PROCEDURE: Dexa Spine and/or Hip INDICATIONS: OSTEOPOROSIS TECHNIQUE: Dual energy x-ray absorptiometry (DXA) was performed on a Movity System. Regions measur ed are the AP Spine, femoral neck, and if needed forearm. COMPARISON: Similar study, same methodology, 02/28/2018. 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 There has been a small interval improvement in overall bone mineral density when compared to prior study from February 2018. Patients with diagnosis of osteoporosis or osteopenia should have regular bone mineral density assess ment. For those eligible for Medicare, routine testing is allowed once every 2 years. Testing frequ ency can be increased for patients who have rapidly progressing disease or for those who are receivin g medical therapy to restore bone mass. Reviewed by: Sebastián Hutchins MD on 04/21/2020 11:35 AM PDT Approved by: Sebastián Hutchins MD on 04/21/2020 11:35 AM PDT Station ID: [id number]
== END 2020-04-20 16:30 | disposition home or self-care (01) ==
LOC: DI 16:29
PROVIDERS: ATTEND Family Medicine
DX: M85.88 Other specified disorders of bone density and structure, other site (principal)
CPT/HCPCS: 77080

== ENCOUNTER 2020-09-07 07:31 | Outpatient (CLI) | payer MEDICARE ==
[2020-09-07 12:39] LABS: BASOPHILS % (AUTO) 0.6 %; EOSINOPHILS # (AUTO) 0.1 10^3/uL (0.0-0.7); LYMPHOCYTES # (AUTO) 2.1 10^3/uL (1.5-3.5); LYMPHOCYTES % (AUTO) 40.6 %; MEAN CORPUSCULAR HEMOGLOBIN 29.3 pg (27.0-31.0); MEAN CORPUSCULAR HGB CONC 32.3 g/dL (32.0-36.0); MEAN PLATELET VOLUME 10.2 fL (7.9-10.8); MONOCYTES # (AUTO) 0.5 10^3/uL (0.0-1.0); MONOCYTES % (AUTO) 8.9 %; NEUTROPHILS # (AUTO) 2.5 10^3/uL (1.5-6.6); NEUTROPHILS % (AUTO) 48.5 %; PLT - PLATELET COUNT 209 10^3/uL (130-450); RED BLOOD COUNT 4.09 10^6/uL (4.20-5.40); RED CELL DISTRIBUTION WIDTH 13.1 % (12.0-15.0); WHITE BLOOD COUNT 5.1 x10^3/uL (4.8-10.8)
[2020-09-07 13:37] LABS: ALBUMIN/GLOBULIN RATIO 1.5 (1.0-2.2); ALKALINE PHOSPHATASE 56 IU/L (42-121); ALT ALANINE AMINOTRANSFERASE < 10 IU/L (10-60); AST ASPARTATE AMINOTRANSFERASE 15 IU/L (10-42); BILIRUBIN,TOTAL 0.7 mg/dL (0.2-1.0); BUN - BLOOD UREA NITROGEN 25 mg/dL (6-20); CALCIUM 8.8 mg/dL (8.5-10.3); CARBON DIOXIDE - CO2 27 mmol/L (21-32); CHLORIDE 105 mmol/L (101-111); CHOL/HDL RATIO 3.4 (<4.4); CHOLESTEROL 227 mg/dL; GLUCOSE 100 mg/dL (70-100); HDL CHOLESTEROL 67 mg/dL; LDL CHOLESTEROL,CALCULATED 135 mg/dL; SODIUM 140 mmol/L (135-145); TOTAL PROTEIN 6.7 g/dL (6.7-8.2); VLDL CHOLESTEROL 25 mg/dL
== END 2020-09-07 07:32 | disposition home or self-care (01) ==
LOC: LAB.WCP 07:31
PROVIDERS: ATTEND Family Medicine
DX: R60.9 Edema, unspecified (principal); E78.5 Hyperlipidemia, unspecified; G20 Parkinson's disease; E03.9 Hypothyroidism, unspecified
CPT/HCPCS: 36415; 80053; 80061; 81001; 82306; 82607; 83721; 84443; 85025; 87086

== ENCOUNTER 2021-03-02 15:02 | Outpatient (CLI) | payer MEDICARE | END 2021-03-02 15:03 | disposition home or self-care (01) | LOC: DI 15:02 | PROVIDERS: ATTEND Family Medicine | DX: Z53.9 Procedure and treatment not carried out, unspecified reason (principal) ==

== ENCOUNTER 2021-03-02 15:03 | Outpatient (CLI) | payer MEDICARE ==
--- NOTE | 2021-03-03 12:31 | Ultrasound Report ---
PROCEDURE: Carotid Doppler Complete INDICATIONS: CAROTID ARTERIAL DISEASE TECHNIQUE: Color and pulse Doppler interrogation was performed of both carotid systems, with image documentation and velocity measurements. COMPARISON: None. FINDINGS: Right side: Brachial blood pressure: 154/90 mm Hg. Common carotid artery peak systolic velocity: 78.2 cm/sec. Internal carotid artery peak systolic velocity: 76.8 cm/sec. Internal carotid artery end diastolic velocity: 28.9 cm/sec. External carotid artery peak systolic velocity: 60.5 cm/sec. ICA/CCA peak systolic ratio: 1.0 . Marcano scale imaging description: Mild soft and calcific plaque. Percent internal carotid artery stenosis: Less than 50% stenosis . Vertebral artery: Flow direction is antegrade. Left side: Brachial blood pressure: 134/84 mm Hg. Common carotid artery peak systolic velocity: 79.6 cm/sec. Internal carotid artery peak systolic velocity: 64.9 cm/sec. Internal carotid artery end diastolic velocity: 27.2 cm/sec. External carotid artery peak systolic velocity: 77.2 cm/sec. ICA/CCA peak systolic ratio: 0.8 . Marcano scale imaging description: Mild calcific and soft plaque Percent internal carotid artery stenosis: Less than 50% stenosis . Vertebral artery: Flow direction is antegrade. IMPRESSION: Less than 50% stenosis within the proximal internal carotid arteries bilaterally. Vertebral arterial flow is normal in phasicity and velocity. The estimate of stenosis included in the report of the imaging study was calculated using the NASCET method Reviewed by: Sebastián Hutchins MD on 03/03/2021 12:30 PM PDT Approved by: Sebastián Hutchins MD on 03/03/2021 12:30 PM PDT Station ID: [id number]
== END 2021-03-02 15:04 | disposition home or self-care (01) ==
LOC: DI 15:03
PROVIDERS: ATTEND Family Medicine
DX: I77.9 Disorder of arteries and arterioles, unspecified (principal)
CPT/HCPCS: 93880

== ENCOUNTER 2021-06-16 15:14 | Outpatient (CLI) | payer MEDICARE ==
--- NOTE | 2021-06-16 16:49 | MRI Report ---
PROCEDURE: Brain W/O INDICATIONS: MEMORY LOSS TECHNIQUE: Noncontrast axial T1 spin echo, axial T2 fast spin echo, sagittal and axial FLAIR, coronal T2 fast sp in echo, axial gradient echo, axial diffusion and ADC through the brain. COMPARISON: None. FINDINGS: Image quality: Excellent. CSF Spaces: Basal cisterns are patent. No extra-axial fluid collections. Ventricles are normal in size and shape. Brain: No intracranial masses or hemorrhage. Marcano/white matter interface is normal. Mild diffuse c erebral volume loss. Mild degree of patchy high FLAIR signal within the periventricular and subcortic al white matter. Brainstem appears normal. Diffusion-weighted images demonstrate no acute ischemic i nsult. No chronic ischemic insults. Normal intravascular flow voids are present. Skull and face: Hyperostosis frontalis. Calvarium has otherwise normal marrow signal. Orbits appear normal. Sinuses: Sinuses and mastoids are clear. IMPRESSION: 1. Volume loss and small vessel ischemic disease. 2. No acute process. No recent infarct. Reviewed by: Roberto Quick MD on 06/16/2021 4:47 PM PDT Approved by: Roberto Quick MD on 06/16/2021 4:47 PM PDT Station ID: [id number]
== END 2021-06-16 15:15 | disposition home or self-care (01) ==
LOC: DI 15:14
PROVIDERS: ATTEND Family Medicine
DX: R41.3 Other amnesia (principal); H53.9 Unspecified visual disturbance; G31.89 Other specified degenerative diseases of nervous system; I67.82 Cerebral ischemia

== ENCOUNTER 2021-08-22 22:57 | Outpatient (CLI) | payer MEDICARE | END 2021-08-22 22:58 | disposition EMS.NT | LOC: EMS 22:57 | DX: R51.9 Headache, unspecified (principal); I10 Essential (primary) hypertension ==

== ENCOUNTER 2021-08-23 00:07 | Emergency (ER) | payer MEDICARE ==
[2021-08-23 01:32] LABS: BASOPHILS % (AUTO) 0.7 %; EOSINOPHILS # (AUTO) 0.1 10^3/uL (0.0-0.7); EOSINOPHILS % (AUTO) 1.2 %; HCT - HEMATOCRIT 36.4 % (37.0-47.0); HGB - HEMOGLOBIN 12.2 g/dL (12.0-16.0); LYMPHOCYTES # (AUTO) 1.3 10^3/uL (1.5-3.5); LYMPHOCYTES % (AUTO) 22.1 %; MEAN CORPUSCULAR HEMOGLOBIN 29.7 pg (27.0-31.0); MEAN CORPUSCULAR HGB CONC 33.5 g/dL (32.0-36.0); MEAN CORPUSCULAR VOLUME 88.6 fL (81.0-99.0); MEAN PLATELET VOLUME 9.7 fL (7.9-10.8); MONOCYTES # (AUTO) 0.6 10^3/uL (0.0-1.0); MONOCYTES % (AUTO) 9.7 %; NEUTROPHILS # (AUTO) 3.9 10^3/uL (1.5-6.6); PLT - PLATELET COUNT 178 10^3/uL (130-450); RED BLOOD COUNT 4.11 10^6/uL (4.20-5.40); RED CELL DISTRIBUTION WIDTH 12.6 % (12.0-15.0); WHITE BLOOD COUNT 5.9 x10^3/uL (4.8-10.8)
[2021-08-23 01:41] LABS: ALBUMIN 3.8 g/dL (3.2-5.5); ALBUMIN/GLOBULIN RATIO 1.4 (1.0-2.2); ALKALINE PHOSPHATASE 61 IU/L (42-121); ALT ALANINE AMINOTRANSFERASE < 10 IU/L (10-60); AST ASPARTATE AMINOTRANSFERASE 13 IU/L (10-42); BILIRUBIN,TOTAL 0.6 mg/dL (0.2-1.0); BUN - BLOOD UREA NITROGEN 25 mg/dL (6-20); CARBON DIOXIDE - CO2 26 mmol/L (21-32); CHLORIDE 101 mmol/L (101-111); CREATININE 0.9 mg/dL (0.4-1.0); GFR - MDRD 61 (>89); GLUCOSE 107 mg/dL (70-100); POTASSIUM 3.3 mmol/L (3.5-5.0); SODIUM 136 mmol/L (135-145); TOTAL PROTEIN 6.5 g/dL (6.7-8.2)
--- NOTE | 2021-08-23 02:38 | ED Physician Documentation ---
History of Present Illness - Stated complaint Stated Complaint: HIGH BP - Chief complaint Chief Complaint: General - History obtained from History obtained from: Patient - Additonal information Additional information: Patient presents to the emergency department with chief complaint of elevated blood pressure. Reports was checking blood pressure multiple times this evening and noted that it continued to rise with systolics in the high 200s. States that she does not usually have problems with blood pressure and in fact usually has problems with low blood pressure. Reports mild headache earlier this evening but denies any blurred vision, double vision, chest pain, shortness of breath, abdominal pain, nausea, vomiting, diarrhea, constipation. Past medical significant for Parkinson's disease. Review of Systems Ten Systems: 10 systems reviewed and negative Constitutional: denies: Fever Cardiac: denies: Chest pain / pressure Respiratory: denies: Dyspnea GI: denies: Abdominal Pain : denies: Dysuria Neurologic: reports: Other (Tremor) PD PAST MEDICAL HISTORY - Past Medical History Past Medical History: Yes Cardiovascular: Hypertension Respiratory: None Neuro: Parkinson's Endocrine/Autoimmune: HyPOthyroidism GI: None FULL FASHIONED GARMENT KNITTER: Fibroids : None HEENT: Other Psych: Depression, Anxiety, Panic attacks Musculoskeletal: Osteopenia, Chronic back pain, Other Derm: Other - Past Surgical History Past Surgical History: Yes General: Cholecystectomy, Appendectomy, Colonoscopy /FULL FASHIONED GARMENT KNITTER: Dilation and currettage, Hysterectomy, Other HEENT: Rhinoplasty - Present Medications Home Medications: Ambulatory Orders Medication Instructions Recorded Confirmed Levothyroxine [Synthroid] 75 mcg PO QPM 07/04/13 09/28/19 PARoxetine [Paxil] 20 mg PO DAILY 07/04/13 09/27/19 Rasagiline [Azilect] 1 mg PO DAILY 07/04/13 09/27/19 oxyCODONE/ACET 5/325 [Percocet 5 1 each PO Q4-6H PRN 01/07/17 09/28/19 mg/325 mg] Carbidopa/Levodopa 25/100 [Sinemet 1.5 each PO Q4H 09/28/19 09/28/19 25 mg/100 mg] Carbidopa/Levodopa ER 25/100 1 each PO QPM 09/28/19 09/28/19 [Sinemet Cr 25 mg/100 mg] raNITIdine [Zantac] 150 mg PO DAILY 09/28/19 09/28/19 Alendronate [Fosamax] 70 mg PO Q7D #1 tablet 09/30/19 Calcium Carbonate/Vitamin D3 1 each PO DAILY #10 tablet 09/30/19 [Calcium 500-Vit D3 200 Tablet] Docusate Sodium 250Mg Capsule 250 mg PO DAILY PRN #10 capsule 09/30/19 [Colace 250Mg Capsule] HYDROcodone/ACET 10/325 [[place] 10 1 tab PO Q4H PRN #30 tablet 09/30/19 mg/325 mg] - Allergies Allergies/Adverse Reactions: Allergies Allergy/AdvReac Type Severity Reaction Status Date / Time Sulfa (Sulfonamide Allergy Unknown Verified 08/23/21 00:24 Antibiotics) - Social History Does the pt smoke?: No Smoking Status: Never smoker Does the pt drink ETOH?: No Does the pt have substance abuse?: No - Immunizations Immunizations are current?: Yes - POLST Patient has POLST: No POLST Status: Full Code PD ED PE NORMAL - Vitals Vital signs reviewed: Yes - General General: Alert and oriented X 3 - HEENT HEENT: Atraumatic, PERRL - Neck Neck: Supple, no meningeal sign - Cardiac Cardiac: RRR - Respiratory Respiratory: No respiratory distress - Abdomen Abdomen: Normal bowel sounds - Female Female : Deferred - Rectal Rectal: Deferred - Derm Derm: Normal color - Neuro Neuro: Alert and oriented X 3, 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, No sensory deficit, Normal speech, Other (Parkinson's tremor) Results - Vitals Vitals: Vital Signs - 24 hr 08/23/21 08/23/21 08/23/21 00:10 01:03 01:07 Temperature 36.9 C Heart Rate 92 79 84 Respiratory 16 20 20 Rate Blood Pressure 132/112 H 136/103 H O2 Saturation 98 94 08/23/21 08/23/21 02:05 02:46 Temperature Heart Rate 84 85 Respiratory 16 15 Rate Blood Pressure 158/103 H O2 Saturation 96 98 Oxygen O2 Source Room air - EKG (time done) 0042 Rate: Rate (enter#) (80) Rhythm: NSR [place]: Normal Intervals: Normal SC, QRS normal Ischemia: Normal ST segments - Labs Labs: Laboratory Tests 08/23/21 08/23/21 08/23/21 01:15 01:15 01:15 WBC 5.9 RBC 4.11 L Hgb 12.2 Hct 36.4 L MCV 88.6 MCH 29.7 MCHC 33.5 RDW 12.6 Plt Count 178 MPV 9.7 Neut # (Auto) 3.9 Lymph # (Auto) 1.3 L [place] # (Auto) 0.6 Eos # (Auto) 0.1 Baso # (Auto) 0.0 Absolute Nucleated RBC 0.00 Nucleated RBC % 0.0 Sodium 136 Potassium 3.3 L Chloride 101 Carbon Dioxide 26 Anion Gap 9.0 BUN 25 H Creatinine 0.9 Estimated GFR (MDRD) 61 L Glucose 107 H Calcium 9.0 Total Bilirubin 0.6 AST 13 ALT < 10 L Alkaline Phosphatase 61 Troponin I High Sens 6.4 Total Protein 6.5 L Albumin 3.8 Globulin 2.7 Albumin/Globulin Ratio 1.4 PD MEDICAL DECISION MAKING - ED course Complexity details: reviewed results, d/w patient ED course: Patient is a 76-year-old female with known history of Parkinson's disease presenting to the emergency department for elevated blood pressure. Patient afebrile, hemodynamically stable on arrival to the emergency department. Was modestly hypertensive on arrival however this normalized significantly without pharmacologic intervention. EKG as outlined above was negative for indications of acute cardiac ischemia or dysrhythmia. Comprehensive labs obtained not show any evidence of hypertensive emergency. Patient was observed in the emergency department for several hours, reported no concerning symptoms for hypertensive emergency such as persistent or intractable headache, chest pain or shortness of breath. At this time will discharge for follow-up with primary care as needed. Otherwise clear return precautions and follow-up instructions given prior to discharge. Departure - Departure Disposition: 01 Home, Self Care Clinical Impression: High blood pressure Condition: Good Comments: Thank you for allowing us to care for you today at [facility]. All the testing performed in the emergency department including your EKG, and blood work were all very reassuring. Your blood pressure was mildly elevated here in the emergency department however it did improve by itself. I would like you to follow-up with your primary care doctor as soon as possible in order to have your blood pressure rechecked. If it anytime you have any new or worsening symptoms please not hesitate to return to the emergency department. Discharge Date/Time: 08/23/21 02:54
[2021-08-23 02:47] VITALS: BP 158/103
== END 2021-08-23 02:54 | disposition home or self-care (01) ==
LOC: ED 00:07
DX: I10 Essential (primary) hypertension (principal); R51.9 Headache, unspecified; G20 Parkinson's disease
CPT/HCPCS: 36415; 80053; 84484; 85025; 93005; 99282; 99284

== ENCOUNTER 2021-09-19 08:00 | Outpatient (CLI) | payer MEDICARE | END 2021-09-19 23:59 | LOC: LAB 08:00 | PROVIDERS: ATTEND Physician Assistant Medical | DX: R35.0 Frequency of micturition (principal) | CPT/HCPCS: 87086 ==

== ENCOUNTER 2021-10-21 08:22 | Outpatient (CLI) | payer MEDICARE ==
[2021-10-21 12:34] LABS: BASOPHILS % (AUTO) 0.8 %; EOSINOPHILS # (AUTO) 0.1 10^3/uL (0.0-0.7); EOSINOPHILS % (AUTO) 1.9 %; HCT - HEMATOCRIT 37.9 % (37.0-47.0); HGB - HEMOGLOBIN 12.6 g/dL (12.0-16.0); LYMPHOCYTES # (AUTO) 1.7 10^3/uL (1.5-3.5); LYMPHOCYTES % (AUTO) 36.9 %; MEAN CORPUSCULAR HEMOGLOBIN 30.1 pg (27.0-31.0); MEAN CORPUSCULAR HGB CONC 33.2 g/dL (32.0-36.0); MEAN CORPUSCULAR VOLUME 90.5 fL (81.0-99.0); MEAN PLATELET VOLUME 10.2 fL (7.9-10.8); MONOCYTES # (AUTO) 0.5 10^3/uL (0.0-1.0); MONOCYTES % (AUTO) 9.8 %; NEUTROPHILS # (AUTO) 2.4 10^3/uL (1.5-6.6); NEUTROPHILS % (AUTO) 50.4 %; PLT - PLATELET COUNT 182 10^3/uL (130-450); RED BLOOD COUNT 4.19 10^6/uL (4.20-5.40); RED CELL DISTRIBUTION WIDTH 12.4 % (12.0-15.0); WHITE BLOOD COUNT 4.7 x10^3/uL (4.8-10.8)
[2021-10-21 13:19] LABS: ALBUMIN/GLOBULIN RATIO 1.4 (1.0-2.2); ALKALINE PHOSPHATASE 57 IU/L (42-121); ALT ALANINE AMINOTRANSFERASE < 10 IU/L (10-60); AST ASPARTATE AMINOTRANSFERASE 16 IU/L (10-42); BILIRUBIN,TOTAL 0.7 mg/dL (0.2-1.0); BUN - BLOOD UREA NITROGEN 19 mg/dL (6-20); CALCIUM 8.9 mg/dL (8.5-10.3); CARBON DIOXIDE - CO2 29 mmol/L (21-32); CHLORIDE 101 mmol/L (101-111); CHOL/HDL RATIO 3.6 (<4.4); CHOLESTEROL 211 mg/dL; GFR - MDRD 54 (>89); GLUCOSE 109 mg/dL (70-100); HDL CHOLESTEROL 59 mg/dL; LDL CHOLESTEROL,CALCULATED 122 mg/dL; LDL/HDL RATIO 2.1 (<4.4); POTASSIUM 3.6 mmol/L (3.5-5.0); SODIUM 138 mmol/L (135-145); TOTAL PROTEIN 6.8 g/dL (6.7-8.2); TRIGLYCERIDES 151 mg/dL; VLDL CHOLESTEROL 30 mg/dL
[2021-10-21 14:06] LABS: ESTIMATED AVERAGE GLUCOSE 117 mg/dL (70-100); HEMOGLOBIN A1c% 5.7 % (4.27-6.07)
== END 2021-10-21 08:23 | disposition home or self-care (01) ==
LOC: LAB.N 08:22
PROVIDERS: ATTEND Family Medicine
DX: E78.5 Hyperlipidemia, unspecified (principal); R03.0 Elevated blood-pressure reading, without diagnosis of hypertension; R73.01 Impaired fasting glucose; R35.0 Frequency of micturition
CPT/HCPCS: 36415; 80053; 80061; 83036; 83721; 85025; 87086

== ENCOUNTER 2021-11-22 13:35 | Outpatient (CLI) | payer MEDICARE ==
--- NOTE | 2021-11-22 15:38 | MRI Report ---
PROCEDURE: Angio Brain W/O (MRA) INDICATIONS: Objective pulsatile tinnitus TECHNIQUE: Noncontrast axial 3-D [id number] MR angiogram, with 3-dimensional maximum intensity projection (M IP) reformats of the internal carotid arteries and posterior circulation then performed. COMPARISON: None. FINDINGS: Image quality: Excellent. Anterior circulation: Intracranial internal carotid arteries demonstrate normal size and intralumina l flow signal. The flow within the paired anterior cerebral arteries is normal and symmetric. The f low within the middle cerebral arteries is normal and symmetric. The anterior communicating artery i s seen. No stenoses, occlusions, or aneurysms. Posterior circulation: Visualized portions of the vertebral arteries demonstrate normal caliber, and join to form a normal appearing basilar artery. The flow within the posterior cerebral arteries is normal and symmetric. No stenoses, occlusions, or aneurysms. IMPRESSION: No intracranial aneurysm or vascular malformation. Reviewed by: Kade Campbell MD on 11/22/2021 3:36 PM PDT Approved by: Kade Campbell MD on 11/22/2021 3:36 PM PDT Station ID: [id number]
== END 2021-11-22 13:36 | disposition home or self-care (01) ==
LOC: DI 13:35
PROVIDERS: ATTEND Family Medicine
DX: H93.13 Tinnitus, bilateral (principal)

== ENCOUNTER 2022-09-18 14:11 | Outpatient (CLI) | payer MEDICARE ==
--- NOTE | 2022-09-19 13:07 | DEXA Report ---
PROCEDURE: Dexa Spine and/or Hip INDICATIONS: POST MENOPAUSAL TECHNIQUE: Dual energy x-ray absorptiometry (DXA) was performed on a WireImage System. Regions measur ed are the AP Spine, femoral neck, and if needed forearm. COMPARISON: None. FINDINGS: Lumbar Spine: Bone Mineral Density 1.285 g/cm/cm,T score 0.9, normal Left Femoral Neck: Bone Mineral Density 0.793 g/cm/cm, T score -1.8, osteopenia Left Hip: Bone Mineral Density 0.919 g/cm/cm,T score -0.7, normal. IMPRESSION: Osteopenia on the basis of low left femoral neck bone mineral density. Patients with diagnosis of osteoporosis or osteopenia should have regular bone mineral density assess ment. For those eligible for Medicare, routine testing is allowed once every 2 years. Testing frequ ency can be increased for patients who have rapidly progressing disease or for those who are receivin g medical therapy to restore bone mass. Reviewed by: Kade Campbell MD on 09/19/2022 1:05 PM PST Approved by: Kade Campbell MD on 09/19/2022 1:05 PM PST Station ID: [id number]
== END 2022-09-18 14:12 | disposition home or self-care (01) ==
LOC: DI 14:11
PROVIDERS: ATTEND Physician Assistant
DX: M85.88 Other specified disorders of bone density and structure, other site (principal); Z78.0 Asymptomatic menopausal state

== ENCOUNTER 2022-11-11 22:54 | Outpatient (CLI) | payer MEDICARE | END 2022-11-11 22:55 | disposition EMS.NT | LOC: EMS 22:54 | DX: R06.02 Shortness of breath (principal) ==

== ENCOUNTER 2022-11-21 08:00 | Outpatient (CLI) | payer MEDICARE ==
[2022-11-21 17:38] LABS: CHOL/HDL RATIO 3.1 (<4.4); CHOLESTEROL 200 mg/dL; HDL CHOLESTEROL 65 mg/dL; LDL CHOLESTEROL,CALCULATED 115 mg/dL; LDL/HDL RATIO 1.8 (<4.4); TRIGLYCERIDES 98 mg/dL; VLDL CHOLESTEROL 20 mg/dL
[2022-11-21 17:47] LABS: THYROID STIMULATING HORMONE < 0.08 uIU/mL (0.34-5.60)
[2022-11-21 17:49] LABS: FREE T4 (FREE THYROXINE) 1.16 ng/dL (0.58-1.64)
[2022-11-21 20:59] LABS: ESTIMATED AVERAGE GLUCOSE 111 mg/dL (70-100); HEMOGLOBIN A1c% 5.5 % (4.27-6.07)
== END 2022-11-21 23:59 | disposition home or self-care (01) ==
LOC: LAB 08:00
PROVIDERS: ATTEND Physician Assistant
DX: G20 Parkinson's disease (principal); E78.5 Hyperlipidemia, unspecified; R73.01 Impaired fasting glucose; E03.9 Hypothyroidism, unspecified
CPT/HCPCS: 36415; 80061; 83036; 83721; 84439; 84443

== ENCOUNTER 2022-11-21 15:06 | Emergency (ER) | payer MEDICARE ==
[2022-11-21 15:15] VITALS: BP 158/91
[2022-11-21] MEDS ORDERED: ONDANSETRON 4 MG/2 ML VIAL IVP STA (15:39)
[2022-11-21] MEDS ORDERED: SODIUM CHLORIDE 0.9% 1,000 ML IV STA (15:39)
[2022-11-21 15:44] LABS: BASOPHILS % (AUTO) 0.4 %; EOSINOPHILS % (AUTO) 0.2 %; HCT - HEMATOCRIT 38.4 % (37.0-47.0); HGB - HEMOGLOBIN 12.6 g/dL (12.0-16.0); LYMPHOCYTES # (AUTO) 1.2 10^3/uL (1.5-3.5); MEAN CORPUSCULAR HEMOGLOBIN 29.4 pg (27.0-31.0); MEAN CORPUSCULAR HGB CONC 32.8 g/dL (32.0-36.0); MEAN CORPUSCULAR VOLUME 89.7 fL (81.0-99.0); MEAN PLATELET VOLUME 9.6 fL (7.9-10.8); MONOCYTES # (AUTO) 0.4 10^3/uL (0.0-1.0); NEUTROPHILS # (AUTO) 3.6 10^3/uL (1.5-6.6); NEUTROPHILS % (AUTO) 69.2 %; PLT - PLATELET COUNT 179 10^3/uL (130-450); RED BLOOD COUNT 4.28 10^6/uL (4.20-5.40); RED CELL DISTRIBUTION WIDTH 12.2 % (12.0-15.0); WHITE BLOOD COUNT 5.3 x10^3/uL (4.8-10.8)
[2022-11-21 15:53] LABS: ALBUMIN 4.1 g/dL (3.2-5.5); ALBUMIN/GLOBULIN RATIO 1.5 (1.0-2.2); ALKALINE PHOSPHATASE 50 IU/L (42-121); ALT ALANINE AMINOTRANSFERASE < 10 IU/L (10-60); AST ASPARTATE AMINOTRANSFERASE 12 IU/L (10-42); BILIRUBIN,TOTAL 1.2 mg/dL (0.2-1.0); BUN - BLOOD UREA NITROGEN 19 mg/dL (6-20); CALCIUM 9.9 mg/dL (8.5-10.3); CARBON DIOXIDE - CO2 28 mmol/L (21-32); CHLORIDE 101 mmol/L (101-111); CREATININE 0.9 mg/dL (0.4-1.0); GFR - MDRD 61 (>89); GLUCOSE 112 mg/dL (70-100); LIPASE 33 U/L (22-51); POTASSIUM 3.4 mmol/L (3.5-5.0); SODIUM 139 mmol/L (135-145); TOTAL PROTEIN 6.9 g/dL (6.7-8.2)
--- NOTE | 2022-11-21 16:45 | ED Physician Documentation ---
History of Present Illness - Stated complaint Stated Complaint: STOMACH PX/SOA - Chief complaint Chief Complaint: Cardiac - History obtained from History obtained from: Patient, Family - Additonal information Additional information: The patient comes to the emergency department with chief complaint of upper abdominal discomfort and sense of shortness of breath after taking her Parkinson's meds. The patient states this happens every time she takes her Parkinson's meds which is about every 4 hours. She states that for about 15 to 20 minutes and sometimes even an hour afterward, she starts to feel as though she is short of breath and get some upper abdominal discomfort. The patient's states that the patient always has oxygen saturations in the high 90s and a normal heart rate, and that the situation always passes on its own. However, the patient happened to be here to have a Holter monitor placed, and she states that she was feeling so bad that she just decided to stop at the [facility] department to see if she can get feeling better. She states that now, the episode is passed and she feels back to her normal self. The patient denies any other complaints at this time. She has a longstanding history of Parkinson's disease and is on carbidopa levodopa for it. No other complaints at this time. PD PAST MEDICAL HISTORY - Past Medical History Cardiovascular: Hypertension Respiratory: None Neuro: Parkinson's Endocrine/Autoimmune: HyPOthyroidism GI: None PHONE TRIAGE SPECIALIST: Fibroids : None HEENT: Other Psych: Depression, Anxiety, Panic attacks Musculoskeletal: Osteopenia, Chronic back pain, Other Derm: Other - Past Surgical History Past Surgical History: Yes General: Cholecystectomy, Appendectomy, Colonoscopy /PHONE TRIAGE SPECIALIST: Dilation and currettage, Hysterectomy, Other HEENT: Rhinoplasty - Present Medications Home Medications: Ambulatory Orders Medication Instructions Recorded Confirmed Levothyroxine [Synthroid] 75 mcg PO QPM 07/04/13 09/28/19 PARoxetine [Paxil] 20 mg PO DAILY 07/04/13 09/27/19 Rasagiline [Azilect] 1 mg PO DAILY 07/04/13 09/27/19 oxyCODONE/ACET 5/325 [Percocet 5 1 each PO Q4-6H PRN 01/07/17 09/28/19 mg/325 mg] Carbidopa/Levodopa 25/100 [Sinemet 1.5 each PO Q4H 09/28/19 09/28/19 25 mg/100 mg] Carbidopa/Levodopa ER 25/100 1 each PO QPM 09/28/19 09/28/19 [Sinemet Cr 25 mg/100 mg] raNITIdine [Zantac] 150 mg PO DAILY 09/28/19 09/28/19 Alendronate [Fosamax] 70 mg PO Q7D #1 tablet 09/30/19 Calcium Carbonate/Vitamin D3 1 each PO DAILY #10 tablet 09/30/19 [Calcium 500-Vit D3 200 Tablet] Docusate Sodium 250Mg Capsule 250 mg PO DAILY PRN #10 capsule 09/30/19 [Colace 250Mg Capsule] HYDROcodone/ACET 10/325 [[place] 10 1 tab PO Q4H PRN #30 tablet 09/30/19 mg/325 mg] - Allergies Allergies/Adverse Reactions: Allergies Allergy/AdvReac Type Severity Reaction Status Date / Time Sulfa (Sulfonamide Allergy Unknown Verified 08/23/21 00:24 Antibiotics) - Social History Does the pt smoke?: No Smoking Status: Never smoker Does the pt drink ETOH?: No Does the pt have substance abuse?: No - Immunizations Immunizations are current?: Yes - POLST Patient has POLST: No POLST Status: Full Code PD ED PE NORMAL - Vitals Vital signs reviewed: Yes - General General: Alert and oriented X 3, No acute distress, Well developed/nourished - HEENT HEENT: Atraumatic, PERRL, EOMI, Moist mucous membranes - Neck Neck: Supple, no meningeal sign - Cardiac Cardiac: RRR, No murmur, Strong equal pulses - Respiratory Respiratory: No respiratory distress, Clear bilaterally - Abdomen Abdomen: Soft, Non tender, Non distended - Derm Derm: Normal color, Warm and dry, No rash - Extremities Extremities: No deformity, No edema - Neuro Neuro: Alert and oriented X 3, Other (Coarse tremors and cogwheeling. Otherwise grossly normal.) - Psych Psych: Normal mood, Normal affect Results - Vitals Vitals: Vital Signs - 24 hr 11/21/22 15:12 Temperature 36.7 C Heart Rate 84 Respiratory 16 Rate Blood Pressure 158/91 H O2 Saturation 100 Oxygen O2 Source Room air - Labs Labs: Laboratory Tests 11/21/22 11/21/22 15:30 15:30 WBC 5.3 RBC 4.28 Hgb 12.6 Hct 38.4 MCV 89.7 MCH 29.4 MCHC 32.8 RDW 12.2 Plt Count 179 MPV 9.6 Neut # (Auto) 3.6 Lymph # (Auto) 1.2 L [place] # (Auto) 0.4 Eos # (Auto) 0.0 Baso # (Auto) 0.0 Absolute Nucleated RBC 0.00 Nucleated RBC % 0.0 Sodium 139 Potassium 3.4 L Chloride 101 Carbon Dioxide 28 Anion Gap 10.0 BUN 19 Creatinine 0.9 Estimated GFR (MDRD) 61 L Glucose 112 H Calcium 9.9 Total Bilirubin 1.2 H AST 12 ALT < 10 L Alkaline Phosphatase 50 Total Protein 6.9 Albumin 4.1 Globulin 2.8 Albumin/Globulin Ratio 1.5 Lipase 33 PD Medical Decision Making - ED course Complexity details: reviewed results, re-evaluated patient, considered differential, d/w patient, d/w family ED course: The patient was well-appearing, despite her chronic tremors from her Parkinson's disease and her laboratory studies, which included CBC and ER abdominal panel w hich were ordered and reviewed by me, were unremarkable. I felt she was stable for discharge home. I have advised her to try to go over and get her monitor placed if she can before she leaves. We discussed the usual indications for follow-up and return. Departure - Departure Disposition: 01 Home, Self Care Clinical Impression: Dyspnea Qualifiers: Dyspnea type: unspecified Qualified Code(s): R06.00 - Dyspnea, unspecified Abdominal pain Qualifiers: Abdominal location: upper abdomen, unspecified Qualified Code(s): R10.10 - Upper abdominal pain, unspecified Condition: Stable Instructions: ED Abdominal Pain Female Non-Specific Abdominal Pain, ED Dyspnea Shortness of Breath Comments: Your labs all look great. It is not clear why your Parkinson's medications make you feel so awful, especially if you eat food, but no emergent condition has been identified today. Please go and get the event monitor placed, as you are scheduled to do, to avoid any lapse in your health care. Please follow-up with your doctor to discuss whether you should have an endoscopy for your ongoing upper abdominal symptoms. Be sure you get plenty of fluids to drink
[2022-11-21 17:09] LABS: BILIRUBIN,URINE NEGATIVE (NEGATIVE); GLUCOSE, URINE (UA) NEGATIVE (NEGATIVE); KETONES,URINE (UA) NEGATIVE (NEGATIVE); LEUKOCYTE ESTERASE, URINE NEGATIVE (NEGATIVE); NITRITE,URINE NEGATIVE (NEGATIVE); OCCULT BLOOD,URINE NEGATIVE (NEGATIVE); PH,URINE 6.5 PH (5.0-7.5); PROTEIN,URINE NEGATIVE (NEGATIVE); UROBILINOGEN,URINE 0.2 (NORMAL) E.U./dL (NORMAL)
[2022-11-21 17:11] LABS: CLARITY,URINE CLEAR (CLEAR)
== END 2022-11-21 17:03 | disposition home or self-care (01) ==
LOC: ED 15:06
DX: R06.00 Dyspnea, unspecified (principal); R10.10 Upper abdominal pain, unspecified; G20 Parkinson's disease; E78.5 Hyperlipidemia, unspecified; R73.01 Impaired fasting glucose; E03.9 Hypothyroidism, unspecified
CPT/HCPCS: 36415; 80053; 80061; 81001; 81003; 83036; 83690; 83721; 84439; 84443; 85025; 87086; 99283; 99284

== ENCOUNTER 2022-12-14 12:22 | Outpatient (CLI) | payer MEDICARE | END 2022-12-14 23:59 | disposition left against medical advice (07) | LOC: EMS 12:22 | DX: R00.2 Palpitations (principal); R11.0 Nausea; R10.9 Unspecified abdominal pain; I10 Essential (primary) hypertension ==

== ENCOUNTER 2022-12-14 17:39 | Emergency (ER) | payer MEDICARE ==
--- OUTSIDE RECORDS SUMMARY | 2022-12-14 18:27 | EXTERNAL MEDICAL SUMMARY RPT | Continuity of Care Document ---
:1945 Author Organization [facility] Address [address] [phone] Phone Allergies No information. Encounters No information. Functional Status No information. Immunizations No information. Medications No information. Problems date description facility 2022-12-06 14:[address] [facility] 2022-12-06 14:51 Shortness of breath [facility] 2022-12-06 14:[address] [facility] 2022-12-14 00:28 Dyspnea, unspecified [facility] 2022-12-14 00:[address] [facility] Procedures No information. Results/Labs No information. Social History No information. Vital Signs No information.
[2022-12-14 18:52] LABS: BASOPHILS % (AUTO) 0.3 %; EOSINOPHILS % (AUTO) 0.3 %; HCT - HEMATOCRIT 34.7 % (37.0-47.0); HGB - HEMOGLOBIN 11.2 g/dL (12.0-16.0); LYMPHOCYTES # (AUTO) 1.1 10^3/uL (1.5-3.5); LYMPHOCYTES % (AUTO) 31.7 %; MEAN CORPUSCULAR HEMOGLOBIN 29.3 pg (27.0-31.0); MEAN CORPUSCULAR HGB CONC 32.3 g/dL (32.0-36.0); MEAN CORPUSCULAR VOLUME 90.8 fL (81.0-99.0); MEAN PLATELET VOLUME 9.9 fL (7.9-10.8); MONOCYTES # (AUTO) 0.4 10^3/uL (0.0-1.0); MONOCYTES % (AUTO) 10.7 %; NEUTROPHILS # (AUTO) 1.9 10^3/uL (1.5-6.6); NEUTROPHILS % (AUTO) 56.7 %; PLT - PLATELET COUNT 140 10^3/uL (130-450); RED BLOOD COUNT 3.82 10^6/uL (4.20-5.40); RED CELL DISTRIBUTION WIDTH 12.3 % (12.0-15.0); WHITE BLOOD COUNT 3.4 x10^3/uL (4.8-10.8)
[2022-12-14 19:03] LABS: ALBUMIN 4.1 g/dL (3.2-5.5); ALBUMIN/GLOBULIN RATIO 1.7 (1.0-2.2); ALKALINE PHOSPHATASE 58 IU/L (42-121); ALT ALANINE AMINOTRANSFERASE < 10 IU/L (10-60); AST ASPARTATE AMINOTRANSFERASE 11 IU/L (10-42); BILIRUBIN,TOTAL 0.6 mg/dL (0.2-1.0); BUN - BLOOD UREA NITROGEN 24 mg/dL (6-20); CALCIUM 9.1 mg/dL (8.5-10.3); CARBON DIOXIDE - CO2 31 mmol/L (21-32); CHLORIDE 103 mmol/L (101-111); CREATININE 0.8 mg/dL (0.4-1.0); GFR - MDRD 70 (>89); GLUCOSE 110 mg/dL (70-100); LIPASE 36 U/L (22-51); SODIUM 140 mmol/L (135-145); TOTAL PROTEIN 6.5 g/dL (6.7-8.2)
[2022-12-14 20:04] LABS: BILIRUBIN,URINE NEGATIVE (NEGATIVE); GLUCOSE, URINE (UA) NEGATIVE (NEGATIVE); KETONES,URINE (UA) NEGATIVE (NEGATIVE); LEUKOCYTE ESTERASE, URINE NEGATIVE (NEGATIVE); NITRITE,URINE NEGATIVE (NEGATIVE); OCCULT BLOOD,URINE NEGATIVE (NEGATIVE); PROTEIN,URINE NEGATIVE (NEGATIVE); UROBILINOGEN,URINE 0.2 (NORMAL) E.U./dL (NORMAL)
[2022-12-14 20:07] LABS: CLARITY,URINE CLEAR (CLEAR)
[2022-12-14 20:11] VITALS: BP 161/108
--- NOTE | 2022-12-14 20:32 | ED Physician Documentation ---
PD HPI ABD PAIN - Stated complaint Stated Complaint: SOA,UPSET STOMACH - Chief complaint Chief Complaint: Abd Pain - History obtained from History obtained from: Patient - Additional information Additional information: Patient is a 77-year-old female presenting for evaluation of generalized abdominal pain and cramping That she reports is worse in the upper abdomen starting around noon time today. Patient states that she regularly has these episodes with associated nausea. She notices it more after eating but it does not always happen every time she eats.She reports that this has been ongoing for the past 2 months. She has seen her PCP for this.She has not had a referral to a GI doctor.She denies ever having an upper endoscopy. She reports today she had another episode and was unsure of what to do with us calling 911 because of the pain. However she declined transport. She brought herself to the emergency department. Since being here her pain has resolved. She does have antinausea medications at home and states that she use that this afternoon with improvement. She does have a history of Parkinson's and was able to just now take her Parkinson's medications without any issue. She denies fever, chest pain, Vomiting, diarrhea. She denies dysuria. She states that when the pain comes it feels so bad that it makes her feel short of breath but otherwise she currently does not feel shortness of breath.She reports coming in to the emergency department last month for the same type of episode. Review of Systems Constitutional: denies: Fever Nose: denies: Congestion Cardiac: denies: Chest pain / pressure Respiratory: denies: Cough GI: reports: Abdominal Pain, Nausea. denies: Vomiting, Diarrhea : denies: Dysuria Musculoskeletal: denies: Back pain Neurologic: denies: Headache PD PAST MEDICAL HISTORY - Past Medical History Cardiovascular: Hypertension Respiratory: None Neuro: Parkinson's Endocrine/Autoimmune: HyPOthyroidism GI: None WORD PROCESSING SUPERVISOR: Fibroids : None HEENT: Other Psych: Depression, Anxiety, Panic attacks Musculoskeletal: Osteopenia, Chronic back pain, Other Derm: Other - Past Surgical History Past Surgical History: Yes General: Cholecystectomy, Appendectomy, Colonoscopy /WORD PROCESSING SUPERVISOR: Dilation and currettage, Hysterectomy, Other HEENT: Rhinoplasty - Present Medications Home Medications: Ambulatory Orders Medication Instructions Recorded Confirmed Levothyroxine [Synthroid] 75 mcg PO QPM 07/04/13 09/28/19 PARoxetine [Paxil] 20 mg PO DAILY 07/04/13 09/27/19 Rasagiline [Azilect] 1 mg PO DAILY 07/04/13 09/27/19 oxyCODONE/ACET 5/325 [Percocet 5 1 each PO Q4-6H PRN 01/07/17 09/28/19 mg/325 mg] Carbidopa/Levodopa 25/100 [Sinemet 1.5 each PO Q4H 09/28/19 09/28/19 25 mg/100 mg] Carbidopa/Levodopa ER 25/100 1 each PO QPM 09/28/19 09/28/19 [Sinemet Cr 25 mg/100 mg] raNITIdine [Zantac] 150 mg PO DAILY 09/28/19 09/28/19 Alendronate [Fosamax] 70 mg PO Q7D #1 tablet 09/30/19 Calcium Carbonate/Vitamin D3 1 each PO DAILY #10 tablet 09/30/19 [Calcium 500-Vit D3 200 Tablet] Docusate Sodium 250Mg Capsule 250 mg PO DAILY PRN #10 capsule 09/30/19 [Colace 250Mg Capsule] HYDROcodone/ACET 10/325 [[place] 10 1 tab PO Q4H PRN #30 tablet 09/30/19 mg/325 mg] - Allergies Allergies/Adverse Reactions: Allergies Allergy/AdvReac Type Severity Reaction Status Date / Time Sulfa (Sulfonamide Allergy Unknown Verified 12/14/22 17:45 Antibiotics) - Social History Does the pt smoke?: No Smoking Status: Never smoker Does the pt drink ETOH?: No Does the pt have substance abuse?: No - Immunizations Immunizations are current?: Yes - POLST Patient has POLST: No POLST Status: Full Code PD ED PE NORMAL - General General: Alert and oriented X 3, No acute distress, Well developed/nourished - HEENT HEENT: Atraumatic - Neck Neck: Supple, no meningeal sign - Cardiac Cardiac: RRR, No murmur - Respiratory Respiratory: No respiratory distress, Clear bilaterally - Abdomen Abdomen: Normal bowel sounds, Soft, Non tender, Non distended, Other (No mass, no rebound, no guarding) - Derm Derm: Warm and dry - Extremities Extremities: No edema - Neuro Neuro: Normal speech Results - Vitals Vitals: Vital Signs - 24 hr 12/14/22 12/14/22 17:45 19:51 Temperature 36.5 C Heart Rate 88 80 Respiratory 16 18 Rate Blood Pressure 152/88 H 161/108 H O2 Saturation 98 99 Oxygen O2 Source Room air - Labs Labs: Laboratory Tests 12/14/22 12/14/22 12/14/22 18:44 18:44 19:54 WBC 3.4 L RBC 3.82 L Hgb 11.2 L Hct 34.7 L MCV 90.8 MCH 29.3 MCHC 32.3 RDW 12.3 Plt Count 140 MPV 9.9 Neut # (Auto) 1.9 Lymph # (Auto) 1.1 L [place] # (Auto) 0.4 Eos # (Auto) 0.0 Baso # (Auto) 0.0 Absolute Nucleated RBC 0.00 Nucleated RBC % 0.0 Sodium 140 Potassium 4.0 Chloride 103 Carbon Dioxide 31 Anion Gap 6.0 BUN 24 H Creatinine 0.8 Estimated GFR (MDRD) 70 L Glucose 110 H Calcium 9.1 Total Bilirubin 0.6 AST 11 ALT < 10 L Alkaline Phosphatase 58 Total Protein 6.5 L Albumin 4.1 Globulin 2.4 Albumin/Globulin Ratio 1.7 Lipase 36 Urine Color YELLOW Urine Clarity CLEAR Urine pH 7.0 Ur Specific [place] 1.015 Urine Protein NEGATIVE Urine Glucose (UA) NEGATIVE Urine Ketones NEGATIVE Urine Occult Blood NEGATIVE Urine Nitrite NEGATIVE Urine Bilirubin NEGATIVE Urine Urobilinogen 0.2 (NORMAL) Ur Leukocyte Esterase NEGATIVE Ur Microscopic Review NOT INDICATED Urine Culture Comments NOT INDICATED PD Medical Decision Making - ED course Complexity details: reviewed results, d/w patient, d/w family (Son) ED course: Patient is a 77-year-old female presenting for evaluation of upper abdominal pain that has been intermittent for the past several months.She had been waiting in the emergency department a few hours prior to start of my shift and upon my initial evaluation states that Her symptoms have all resolved and she would like to go home. Her abdominal exam is benign with no tenderness.Her labs that were obtained from triage included a CBC, chemistries and urine analysis without any significant findings.She has no chest pain to suggest cardiac etiology. She reports that the pain had earlier made her feel short of air but she has clear lung sounds and normal oxygenation saturations here. Patient has declined imaging. She would like to go home and have follow-up with her PCP. She advised on concerning symptoms to return for. Departure - Departure Disposition: Home, Self Care Clinical Impression: Upper abdominal pain Condition: Stable Instructions: ED Abdominal Pain Female Non-Specific Abdominal Pain Follow-Up: Barbi Kim PA-C [Primary Care Provider] - Comments: It is unclear at this time What is causing your upper abdominal pain after you eat. I do believe a referral to GI specialist would be helpful and would encour age close follow-up with your primary care. I would recommend MiraLAX daily for constipation. I would avoid anything that could irritate your stomach such as acidic, spicy, citrusy food. Return to the emergency department if you develop any new or worsening symptoms. Discharge Date/Time: 12/14/22 20:40
== END 2022-12-14 20:40 | disposition home or self-care (01) ==
LOC: ED 17:39
DX: R10.10 Upper abdominal pain, unspecified (principal); R06.02 Shortness of breath
CPT/HCPCS: 36415; 80053; 81001; 81003; 83690; 85025; 87086; 99283

== ENCOUNTER 2023-01-01 07:14 | Outpatient (CLI) | payer MEDICARE ==
[2023-01-01 12:40] LABS: THYROID STIMULATING HORMONE < 0.08 uIU/mL (0.34-5.60)
== END 2023-01-01 07:15 | disposition home or self-care (01) ==
LOC: LAB.N 07:14
PROVIDERS: ATTEND Physician Assistant
DX: E03.9 Hypothyroidism, unspecified (principal)
CPT/HCPCS: 36415; 84439; 84443

== ENCOUNTER 2023-02-16 17:19 | Outpatient (CLI) | payer MEDICARE ==
--- NOTE | 2023-02-17 03:20 | XRAY Report ---
PROCEDURE: Lumbar Spine Complete INDICATIONS: FALL ON SAME LEVEL,UNSPECIFIED TECHNIQUE: 5 views of the lumbar spine were acquired. COMPARISON: None. FINDINGS: Bones: 5 [id number] vertebrae are present. There is a minimal leftward curvature of the lumbar spine. There is mild retrolisthesis at L1-L2 and L2-L3. Mild multilevel degenerative disc disease. T here is mild facet arthropathy in the lower lumbar spine. No vertebral body compression fractures. No pars defects identified. No suspicious bony lesions. Soft tissues: Overlying bowel gas pattern is normal. No suspicious soft tissue calcifications. IMPRESSION: 1. No definite fracture or subluxation. Reviewed by: Angelo Ag MD on 02/17/2023 3:19 AM PDT Approved by: Angelo Ag MD on 02/17/2023 3:19 AM PDT Station ID: [id number]
== END 2023-02-16 17:20 | disposition home or self-care (01) ==
LOC: DI 17:19
PROVIDERS: ATTEND Physician Assistant
DX: M54.50 Low back pain, unspecified (principal); G89.29 Other chronic pain

== ENCOUNTER 2023-04-03 07:23 | Outpatient (CLI) | payer MEDICARE ==
[2023-04-03 12:08] LABS: BASOPHILS % (AUTO) 0.3 %; EOSINOPHILS % (AUTO) 0.8 %; HCT - HEMATOCRIT 35.5 % (37.0-47.0); HGB - HEMOGLOBIN 11.2 g/dL (12.0-16.0); LYMPHOCYTES # (AUTO) 1.7 10^3/uL (1.5-3.5); LYMPHOCYTES % (AUTO) 42.5 %; MEAN CORPUSCULAR HEMOGLOBIN 29.9 pg (27.0-31.0); MEAN CORPUSCULAR HGB CONC 31.5 g/dL (32.0-36.0); MEAN CORPUSCULAR VOLUME 94.7 fL (81.0-99.0); MEAN PLATELET VOLUME 10.6 fL (7.9-10.8); MONOCYTES # (AUTO) 0.4 10^3/uL (0.0-1.0); MONOCYTES % (AUTO) 9.3 %; NEUTROPHILS # (AUTO) 1.8 10^3/uL (1.5-6.6); NEUTROPHILS % (AUTO) 46.8 %; PLT - PLATELET COUNT 154 10^3/uL (130-450); RED BLOOD COUNT 3.75 10^6/uL (4.20-5.40); RED CELL DISTRIBUTION WIDTH 13.6 % (12.0-15.0); WHITE BLOOD COUNT 3.9 x10^3/uL (4.8-10.8)
[2023-04-03 12:22] LABS: ALBUMIN 4.2 g/dL (3.2-5.5)
[2023-04-03 12:29] LABS: ALBUMIN/GLOBULIN RATIO 1.8 (1.0-2.2); ALKALINE PHOSPHATASE 62 IU/L (42-121); ALT ALANINE AMINOTRANSFERASE < 3 IU/L (10-60); AST ASPARTATE AMINOTRANSFERASE 9 IU/L (10-42); BILIRUBIN,TOTAL 0.7 mg/dL (0.2-1.0); BUN - BLOOD UREA NITROGEN 20 mg/dL (6-20); CALCIUM 9.6 mg/dL (8.5-10.3); CARBON DIOXIDE - CO2 35 mmol/L (21-32); CHLORIDE 104 mmol/L (101-111); GFR - MDRD 54 (>89); GLUCOSE 98 mg/dL (74-104); POTASSIUM 3.7 mmol/L (3.5-4.5); SODIUM 140 mmol/L (135-145); TOTAL PROTEIN 6.6 g/dL (6.4-8.9)
== END 2023-04-03 07:24 | disposition home or self-care (01) ==
LOC: LAB.N 07:23
PROVIDERS: ATTEND Physician Assistant
DX: I95.1 Orthostatic hypotension (principal); R42 Dizziness and giddiness; E03.9 Hypothyroidism, unspecified
CPT/HCPCS: 36415; 80053; 84439; 84443; 85025

== ENCOUNTER 2023-04-30 15:13 | Emergency (ER) | payer MEDICARE ==
[2023-04-30 15:22] VITALS: BP 130/88; O2SAT 100
--- OUTSIDE RECORDS SUMMARY | 2023-04-30 15:45 | EXTERNAL MEDICAL SUMMARY RPT | Continuity of Care Document ---
Author Name Unknown Address [address] [place] [address] Phone Organization [facility] Address [address] [phone] Phone Problems date description facility 2023-02-06 15:43 Dysphagia, unspecified [facility] Results/Labs test date facility value unit notes
--- NOTE | 2023-04-30 16:44 | ED Physician Documentation ---
PD HPI HEAD INJURY - Stated complaint Stated Complaint: GLF - Chief complaint Chief Complaint: Trauma Ext - History obtained from History obtained from: Patient, Family - Additional information Additional information: 78-year-old female presents from home by private vehicle for evaluation of head trauma that occurred earlier today. Patient was trying to get into her wheelchair when she slipped and fell, hitting the right side of her face against her wheelchair. Denies loss of consciousness, denies use of blood thinners. Patient has advanced Parkinson's and chronic dyskinesia. Patient is reporting right shoulder pain, but states that she knows is not broken. She is here today to evaluate her head injury to make sure there is no bleed. Review of Systems Constitutional: denies: Fever, Chills Eyes: denies: Loss of vision, Decreased vision, Photophobia Ears: denies: Loss of hearing, Ear pain, Drainage/discharge Nose: denies: Rhinorrhea / runny nose, Congestion, Foreign Body Throat: denies: Dental pain / toothache, Oral lesions / sores, Sore throat GI: denies: Abdominal Pain, Nausea, Vomiting Musculoskeletal: reports: Extremity pain. denies: Neck pain, Back pain, Joint pain, Extremity swelling Neurologic: denies: Generalized weakness, Focal weakness, Numbness, Difficulty speaking, Near syncope PD PAST MEDICAL HISTORY - Past Medical History Cardiovascular: Hypertension Respiratory: None Neuro: Parkinson's Endocrine/Autoimmune: HyPOthyroidism GI: None TESTBOARD OPERATOR: Fibroids : None HEENT: Other Psych: Depression, Anxiety, Panic attacks Musculoskeletal: Osteopenia, Chronic back pain, Other Derm: Other - Past Surgical History Past Surgical History: Yes General: Cholecystectomy, Appendectomy, Colonoscopy /TESTBOARD OPERATOR: Dilation and currettage, Hysterectomy, Other HEENT: Rhinoplasty - Present Medications Home Medications: Ambulatory Orders Medication Instructions Recorded Confirmed Levothyroxine [Synthroid] 50 mcg PO QPM 07/04/13 04/10/23 PARoxetine [Paxil] 20 mg PO DAILY 07/04/13 04/10/23 Rasagiline [Azilect] 1 mg PO DAILY 07/04/13 09/27/19 Carbidopa/Levodopa 25/100 [Sinemet 1.25 tab PO Q4H 09/28/19 09/28/19 25 mg/100 mg] Carbidopa/Levodopa ER 25/100 1 each PO QPM 09/28/19 04/10/23 [Sinemet Cr 25 mg/100 mg] Alendronate [Fosamax] 70 mg PO Q7D #1 tablet 09/30/19 Calcium Carbonate/Vitamin D3 1 each PO DAILY #10 tablet 09/30/19 04/10/23 [Calcium 500-Vit D3 200 Tablet] Docusate Sodium 250Mg Capsule 250 mg PO DAILY PRN #10 capsule 09/30/19 04/10/23 [Colace 250Mg Capsule] Ondansetron Odt [Zofran Odt] 4 mg PO Q8HR PRN 04/10/23 04/10/23 methocarbamoL [Robaxin] 500 mg PO Q6H #20 tablet 04/30/23 methylPREDNISolone [Medrol Dose 1 each PO .PACKAGEINSTRUCTIONS 6 04/30/23 Pack] Days #1 each - Allergies Allergies/Adverse Reactions: Allergies Allergy/AdvReac Type Severity Reaction Status Date / Time Sulfa (Sulfonamide Allergy Unknown Verified 04/30/23 15:17 Antibiotics) - Social History Does the pt smoke?: No Smoking Status: Never smoker Does the pt drink ETOH?: No Does the pt have substance abuse?: No - Immunizations Immunizations are current?: Yes - POLST Patient has POLST: No POLST Status: Full Code PD ED PE NORMAL - Vitals Vital signs reviewed: Yes - General General: Alert and oriented X 3, No acute distress, Other (frail) - HEENT HEENT: PERRL, EOMI, Ears normal, Moist mucous membranes, Pharynx benign, Other (R cheek swelling/bruising) - Neck Neck: Supple, no meningeal sign, No JVD - Cardiac Cardiac: RRR, No murmur, Strong equal pulses - Back Back: No CVA TTP, No spinal TTP - Derm Derm: Warm and dry, No rash - Extremities Extremities: No deformity, No tenderness to palpate, Normal ROM s pain, No edema - Neuro Neuro: Alert and oriented X 3, mainspring winder 2-12 intact, Normal speech, Other (coarse parkinsonian tremors) - Psych Psych: Normal mood, Normal affect Results - Vitals Vitals: Oxygen O2 Source Room air PD Medical Decision Making - ED course Complexity details: reviewed results, re-evaluated patient, considered differential, d/w patient ED course: Presentation for ground-level fall with head injury. GCS 15. Patient does have contusion over her right periorbital region and right cheekbone. Will obtain CT imaging. Patient now also complaining of sciatic pain. She states that it has flared up over the last several days and is requesting medications for her symptoms. She has a primary care appointment later this week to discuss her complaints. CT imaging significant for nasal bone fracture. No evidence of nasal septal hematoma. Patient given nasal fracture discharge instructions. Steroids and muscle relaxers for scatica sent to pharmacy of choice. Patient already has scheduled PCP appointment and can discuss ENT referral Departure - Departure Disposition: 01 Home, Self Care Clinical Impression: Nasal bone fracture Qualifiers: Encounter type: initial encounter Fracture type: closed Qualified Code(s): S02.2XXA - Fracture of nasal bones, initial encounter for closed fracture Sciatica Qualifiers: Laterality: left Qualified Code(s): M54.32 - Sciatica, left side Condition: Stable Instructions: ED Fx Nasal Conf W X Ray, ED Head Injury Closed, ED Sciatica Prescriptions: methylPREDNISolone [Medrol Dose Pack] 1 each PO .PACKAGEINSTRUCTIONS 6 Days #1 each methocarbamoL [Robaxin] 500 mg PO Q6H #20 tablet Forms: PCP List Discharge Date/Time: 04/30/23 18:38
[2023-04-30] MEDS ORDERED: DEXAMETHASONE 10 MG/ML VIAL IM STA (17:16)
[2023-04-30] MEDS ORDERED: methocarbamoL 500 MG TABLET PO STA (17:16)
--- NOTE | 2023-04-30 18:22 | CT Report ---
PROCEDURE: CT brain without contrast INDICATIONS: GLF, HEAD TRAUMA TECHNIQUE: Helical axial CT of the brain was obtained without contrast and reformatted in multiple p lanes. Radiation dose reduction was achieved using automated exposure control or adjustment of mA and /or kV according to patient size. COMPARISON: MRI brain 06/16/2021 FINDINGS: CSF spaces: Basal cisterns are patent. No extra-axial fluid collections. Ventricles are normal in size and shape. Brain: No midline shift. No intracranial masses or hemorrhage. [place]-white matter interface is norm al. Skull and face: Calvarium and visualized facial bones are intact, without suspicious lesions. Incid ental hyperostosis frontalis interna noted. Sinuses: Visualized sinuses and mastoids are clear. IMPRESSION: Mild atrophy and white matter chronic ischemic change without intracranial hemorrhage or mass effect Reviewed by: Tiburcio Nickerson MD on 04/30/2023 5:20 PM AKITZ Approved by: Tiburcio Nickerson MD on 04/30/2023 5:20 PM AKDT Station ID: [id number]
--- NOTE | 2023-04-30 18:25 | CT Report ---
PROCEDURE: Maxillofacial CT without contrast INDICATIONS: GLF, FACIAL INJURY TECHNIQUE: Noncontrast 1.5 mm thick axial images acquired from the mandible through the frontal sinuses, with co alberto and sagittal reformatting. For radiation dose reduction, the following was used: automated ex posure control, adjustment of mA and/or kV according to patient size. COMPARISON: None. FINDINGS: Image quality: Limited by motion artifact Bones and teeth: Comminuted nasal bone fracture. Orbital carver are intact. Sinus carver show no frac ture or deformity. Visualized portions of the mandible demonstrate no fractures or subluxation. Zy gomatic arches are intact. Pterygoid plates are intact. Visualized portions of the skull base and a uditory canals are intact. Sinuses: Paranasal sinuses are aerated, without fluid levels, mucosal thickening, or mucoceles. Mas toid air cells are aerated. Soft tissues: No edema, masses, or fluid collections. No enlarged lymph nodes. No soft tissue lace rations or debris. Vascular: Visualized vascular structures appear normal in the absence of contrast. Bony vascular fo ramina and canals are intact. IMPRESSION: Comminuted nasal bone fracture Reviewed by: Tiburcio Nickerson MD on 04/30/2023 5:24 PM [facility] Approved by: Tiburcio Nickerson MD on 04/30/2023 5:24 PM [facility] Station ID: [id number]
== END 2023-04-30 18:38 | disposition home or self-care (01) ==
LOC: ED 15:13
DX: S02.2XXA Fracture of nasal bones, initial encounter for closed fracture (principal); M54.32 Sciatica, left side; W18.30XA Fall on same level, unspecified, initial encounter; I10 Essential (primary) hypertension
CPT/HCPCS: 70450; 70486; 99282; 99283; A9270

== ENCOUNTER 2023-07-13 14:17 | Outpatient (CLI) | payer MEDICARE ==
[2023-07-13 14:57] LABS: CREATININE 0.9 mg/dL (0.6-1.3)
== END 2023-07-13 14:18 | disposition home or self-care (01) ==
LOC: LAB 14:17
PROVIDERS: ATTEND Nurse Practitioner
DX: K30 Functional dyspepsia (principal); R14.0 Abdominal distension (gaseous); R14.3 Flatulence; R10.84 Generalized abdominal pain; K59.00 Constipation, unspecified
CPT/HCPCS: 36415; 82565

== ENCOUNTER 2023-09-01 09:19 | Outpatient (CLI) | payer MEDICARE | END 2023-09-01 09:20 | disposition home or self-care (01) | LOC: LAB.N 09:19 | PROVIDERS: ATTEND Physician Assistant | DX: I10 Essential (primary) hypertension (principal); E78.5 Hyperlipidemia, unspecified; E03.9 Hypothyroidism, unspecified | CPT/HCPCS: 36415; 80053; 80061; 83721; 84439; 84443; 85025 ==

== ENCOUNTER 2023-09-01 09:55 | Outpatient (CLI) | payer MEDICARE | END 2023-09-01 09:56 | disposition critical access hospital (66) | LOC: EMS 09:55 | DX: I10 Essential (primary) hypertension (principal); R45.89 Other symptoms and signs involving emotional state | CPT/HCPCS: A0425; A0429 ==

== ENCOUNTER 2023-09-01 10:14 | Emergency (ER) | payer MEDICARE ==
[2023-09-01] MEDS ORDERED: LABETALOL VIAL 200 MG in SODIUM CHLORIDE 0.9% 160 ML IV STA (11:23)
--- NOTE | 2023-09-01 11:23 | ED Physician Documentation ---
History of Present Illness - Stated complaint Stated Complaint: ANXIETY - Chief complaint Chief Complaint: General - History obtained from History obtained from: Patient, Family (son) - History of Present Illness Timing: Today - Additonal information Additional information: Claudia Ortiz is a 78-year-old female who is being evaluated for weight loss and worsening Parkinson's disease with chronic constipation. The patient was at the urgent care today getting a blood draw done for a routine visit to be done in 3 days time. She was told before she came to the clinic that she could go straight in and get the blood drawn without waiting in line. When she got to the clinic there are 5 people in line and the patient could not convince her son to bring her to the front of the line. When she finally convinced him to come to the frontal line the staff had no idea what she was talking about. The patient became quite anxious and this required the ambulance for evaluation and the patient was transported to the emergency department with elevated blood pressure. She has been in the emergency department now for over an hour her blood pressure is normalized. She would like to go home now but she did not get her blood drawn. Review of Systems Constitutional: reports: Myalgias, Fatigue, Weight Loss. denies: Fever Ears: denies: Ear pain Nose: denies: Congestion Throat: denies: Sore throat Cardiac: denies: Chest pain / pressure Respiratory: denies: Cough GI: reports: Constipation Musculoskeletal: denies: Neck pain, Back pain, Extremity pain Neurologic: reports: Generalized weakness. denies: Focal weakness, Numbness PD PAST MEDICAL HISTORY - Past Medical History Past Medical History: Yes Cardiovascular: Hypertension Respiratory: None Neuro: Parkinson's Endocrine/Autoimmune: HyPOthyroidism GI: None AGRICULTURAL PRODUCE SORTER: Fibroids : None HEENT: Other Psych: Depression, Anxiety, Panic attacks Musculoskeletal: Osteopenia, Chronic back pain, Other Derm: Other - Past Surgical History Past Surgical History: Yes General: Cholecystectomy, Appendectomy, Colonoscopy /AGRICULTURAL PRODUCE SORTER: Dilation and currettage, Hysterectomy, Other HEENT: Rhinoplasty - Present Medications Home Medications: Ambulatory Orders Medication Instructions Recorded Confirmed Levothyroxine [Synthroid] 50 mcg PO QPM 07/04/13 09/01/23 Carbidopa/Levodopa 25/100 [Sinemet 1.25 tab PO Q4H 09/28/19 09/01/23 25 mg/100 mg] Carbidopa/Levodopa ER 25/100 1 each PO QPM 09/28/19 09/01/23 [Sinemet Cr 25 mg/100 mg] Calcium Carbonate/Vitamin D3 1 each PO DAILY #10 tablet 09/30/19 09/01/23 [Calcium 500-Vit D3 200 Tablet] Ondansetron Odt [Zofran Odt] 4 mg PO Q8HR PRN 04/10/23 09/01/23 buPROPion [Wellbutrin Sr] 1 tab PO DAILY 09/01/23 09/01/23 - Allergies Allergies/Adverse Reactions: Allergies Allergy/AdvReac Type Severity Reaction Status Date / Time iodine Allergy Unknown Verified 09/01/23 10:34 Sulfa (Sulfonamide Allergy Unknown Verified 04/30/23 15:17 Antibiotics) - Social History Does the pt smoke?: No Smoking Status: Never smoker Does the pt drink ETOH?: No Does the pt have substance abuse?: No - Immunizations Immunizations are current?: Yes - POLST Patient has POLST: No POLST Status: Full Code PD ED PE NORMAL - Vitals Vital signs reviewed: Yes (hypertensive ) - General General: Alert and oriented X 3, Well developed/nourished, Other (The patient is akesthetic ) - HEENT HEENT: Atraumatic, PERRL, EOMI - Neck Neck: Supple, no meningeal sign, No bony TTP - Cardiac Cardiac: RRR, No murmur - Respiratory Respiratory: No respiratory distress, Clear bilaterally - Abdomen Abdomen: Soft, Non tender - Back Back: No CVA TTP, No spinal TTP - Derm Derm: Normal color, Warm and dry, No rash - Extremities Extremities: No deformity, No edema - Neuro Neuro: Alert and oriented X 3, merchandise executive 2-12 intact, No motor deficit, No sensory deficit, Normal speech Eye Opening: Spontaneous Motor: Obeys Commands Verbal: Oriented GCS Score: 15 - Psych Psych: Normal mood, Normal affect Results - Vitals Vitals: Vital Signs - 24 hr 09/01/23 09/01/23 09/01/23 10:29 10:44 10:45 Temperature 36.4 C L Heart Rate 81 82 Respiratory 16 16 Rate Blood Pressure 217/112 H 185/169 H 210/124 H O2 Saturation 100 99 09/01/23 09/01/23 09/01/23 11:51 12:25 12:59 Temperature Heart Rate Respiratory Rate Blood Pressure 214/111 H 178/103 H 144/86 H O2 Saturation 09/01/23 14:00 Temperature Heart Rate 82 Respiratory 14 Rate Blood Pressure 131/86 H O2 Saturation 100 Oxygen O2 Source Room air - EKG (time done) 1007 EKG releavant findings:: EKG personally interpreted by author of this note. Relevant findings are: Rate: Rate (enter#) (85) Rhythm: NSR Ischemia: Normal ST segments Compare to prior EKG: Old EKG unavailable Computer interpretation: Agree with computer - Labs Labs: Laboratory Tests 09/01/23 09/01/23 13:05 13:05 WBC 3.4 L RBC 3.87 L Hgb 11.3 L Hct 34.9 L MCV 90.2 MCH 29.2 MCHC 32.4 RDW 13.9 Plt Count 159 MPV 10.0 Neut # (Auto) 2.3 Lymph # (Auto) 0.9 L [place] # (Auto) 0.3 Eos # (Auto) 0.0 Baso # (Auto) 0.0 Absolute Nucleated RBC 0.00 Nucleated RBC % 0.0 Sodium 137 Potassium 4.0 Chloride 105 Carbon Dioxide 28 Anion Gap 4.0 L BUN 16 Creatinine 0.8 Estimated GFR (MDRD) 70 L Glucose 101 Calcium 8.7 Total Bilirubin 0.8 AST 7 L ALT < 3 L Alkaline Phosphatase 36 L Total Protein 6.1 L Albumin 4.0 Globulin 2.1 Albumin/Globulin Ratio 1.9 Lipase 13 TSH 2.34 PD Medical Decision Making - ED course Complexity details: reviewed old records, reviewed results, re-evaluated patient, considered differential, d/w patient, d/w family ED course: 78-year-old Claudia Garcia has a history of anxiety and she was into the clinic for routine blood draw this morning and developed acute anxiety with stress and her blood pressure robert significantly. She had systolic over 220 and diastolic over 120. She arrived to the emergency department stating that she felt anxious and was sent by the clinic. She did not get her blood drawn at the clinic. I initially met the patient in the forte with paramedics who are concerned with the high level of the patient's blood pressure. I initially ordered labetalol to be given to the patient but her blood pressure normalized when she was roomed and we opted to treat the anxiety with xanax. This worked well an we were able to draw the blood and get results. The findings included low LFT's and otherwise normal. She was discharged to follow up with her primary as previously planned. Departure - Departure Disposition: 01 Home, Self Care Clinical Impression: Anxiety Parkinsons disease Qualifiers: Dyskinesia presence: with dyskinesia Fluctuating manifestations: with fluctuating manifestations Qualified Code(s): G20.B2 - Parkinson's disease with dyskinesia, with fluctuations Condition: Stable Instructions: Parkinson Disease Dc, ED Stress React, ED Panic Attack Follow-Up: Barbi Kim PA-C [Primary Care Provider] - Comments: Claudia, today your blood work was similar to what you have had previously and our recommendation is to follow-up with Barbi as previously planned. A follow-up with your neurologist regarding your Parkinson symptoms is indicated as well. Discharge Date/Time: 09/01/23 14:24
[2023-09-01] MEDS ORDERED: LABETALOL 20 MG/4 ML SYRINGE IVP STA (12:17)
[2023-09-01] MEDS ORDERED: ALPRAZolam 0.25 MG TABLET PO STA (12:46)
[2023-09-01 13:15] LABS: BASOPHILS % (AUTO) 0.6 %; EOSINOPHILS % (AUTO) 0.6 %; HCT - HEMATOCRIT 34.9 % (37.0-47.0); HGB - HEMOGLOBIN 11.3 g/dL (12.0-16.0); LYMPHOCYTES # (AUTO) 0.9 10^3/uL (1.5-3.5); LYMPHOCYTES % (AUTO) 25.1 %; MEAN CORPUSCULAR HEMOGLOBIN 29.2 pg (27.0-31.0); MEAN CORPUSCULAR HGB CONC 32.4 g/dL (32.0-36.0); MEAN CORPUSCULAR VOLUME 90.2 fL (81.0-99.0); MONOCYTES # (AUTO) 0.3 10^3/uL (0.0-1.0); MONOCYTES % (AUTO) 7.9 %; NEUTROPHILS # (AUTO) 2.3 10^3/uL (1.5-6.6); NEUTROPHILS % (AUTO) 65.5 %; PLT - PLATELET COUNT 159 10^3/uL (130-450); RED BLOOD COUNT 3.87 10^6/uL (4.20-5.40); RED CELL DISTRIBUTION WIDTH 13.9 % (12.0-15.0); WHITE BLOOD COUNT 3.4 x10^3/uL (4.8-10.8)
[2023-09-01 13:39] LABS: LIPASE 13 U/L (11-82)
[2023-09-01 13:45] LABS: ALBUMIN/GLOBULIN RATIO 1.9 (1.0-2.2); ALKALINE PHOSPHATASE 36 IU/L (42-121); ALT ALANINE AMINOTRANSFERASE < 3 IU/L (10-60); AST ASPARTATE AMINOTRANSFERASE 7 IU/L (10-42); BILIRUBIN,TOTAL 0.8 mg/dL (0.2-1.0); BUN - BLOOD UREA NITROGEN 16 mg/dL (6-20); CALCIUM 8.7 mg/dL (8.5-10.3); CARBON DIOXIDE - CO2 28 mmol/L (21-32); CHLORIDE 105 mmol/L (101-111); CREATININE 0.8 mg/dL (0.6-1.3); GFR - MDRD 70 (>89); GLUCOSE 101 mg/dL (74-104); SODIUM 137 mmol/L (135-145); TOTAL PROTEIN 6.1 g/dL (6.4-8.9)
[2023-09-01 14:06] VITALS: BP 131/86; O2SAT 100
[2023-09-01 14:08] LABS: THYROID STIMULATING HORMONE 2.34 uIU/mL (0.34-5.60)
== END 2023-09-01 14:24 | disposition home or self-care (01) ==
LOC: EDUNIT# → ED 10:14
DX: F41.9 Anxiety disorder, unspecified (principal); G20.B2 Parkinson's disease with dyskinesia, with fluctuations
CPT/HCPCS: 36415; 80053; 83690; 84443; 85025; 99283; A9270

== ENCOUNTER 2023-10-04 14:09 | Outpatient (CLI) | payer MEDICARE | END 2023-10-04 14:10 | disposition home or self-care (01) | LOC: NS 14:09 | PROVIDERS: ATTEND Physician Assistant | DX: Z71.3 Dietary counseling and surveillance (principal); R63.4 Abnormal weight loss; E46 Unspecified protein-calorie malnutrition; G20.A1 Parkinson's disease without dyskinesia, without mention of fluctuations; Z68.1 Body mass index [BMI] 19.9 or less, adult | CPT/HCPCS: 97802 ==

== ENCOUNTER 2023-11-12 08:00 | Outpatient (CLI) | payer MEDICARE | END 2023-11-12 23:59 | disposition home or self-care (01) | LOC: PC 08:00 | PROVIDERS: ATTEND Nurse Practitioner Gerontology | DX: Z51.5 Encounter for palliative care (principal); G20.B2 Parkinson's disease with dyskinesia, with fluctuations; R19.4 Change in bowel habit; F41.9 Anxiety disorder, unspecified; G89.29 Other chronic pain; M54.9 Dorsalgia, unspecified; M81.0 Age-related osteoporosis without current pathological fracture; Z99.3 Dependence on wheelchair; E53.8 Deficiency of other specified B group vitamins; F32.9 Major depressive disorder, single episode, unspecified; R53.1 Weakness; R63.0 Anorexia | CPT/HCPCS: 99350 ==

== ENCOUNTER 2023-12-02 08:00 | Outpatient (CLI) | payer MEDICARE | END 2023-12-02 23:59 | disposition home or self-care (01) | LOC: PC 08:00 | PROVIDERS: ATTEND Nurse Practitioner Gerontology | DX: Z51.5 Encounter for palliative care (principal); G20.A1 Parkinson's disease without dyskinesia, without mention of fluctuations; F41.9 Anxiety disorder, unspecified | CPT/HCPCS: 99426 ==

== ENCOUNTER 2023-12-07 08:00 | Outpatient (CLI) | payer MEDICARE | END 2023-12-07 23:59 | disposition home or self-care (01) | LOC: LAB.N 08:00 | PROVIDERS: ATTEND Nurse Practitioner Gerontology | DX: N39.0 Urinary tract infection, site not specified (principal) | CPT/HCPCS: 87086 ==

== ENCOUNTER 2023-12-17 08:00 | Outpatient (CLI) | payer MEDICARE | END 2023-12-17 23:59 | disposition home or self-care (01) | LOC: PC 08:00 | PROVIDERS: ATTEND Nurse Practitioner Gerontology | DX: Z51.5 Encounter for palliative care (principal); G20.B2 Parkinson's disease with dyskinesia, with fluctuations; F41.9 Anxiety disorder, unspecified; I95.1 Orthostatic hypotension; K59.00 Constipation, unspecified; R11.0 Nausea; Z79.899 Other long term (current) drug therapy; Z71.89 Other specified counseling; Z99.3 Dependence on wheelchair; Z74.1 Need for assistance with personal care | CPT/HCPCS: 99350 ==

== ENCOUNTER 2024-01-01 08:00 | Outpatient (CLI) | payer MEDICARE | END 2024-01-01 23:59 | disposition home or self-care (01) | LOC: PC 08:00 | PROVIDERS: ATTEND Nurse Practitioner Gerontology | DX: Z51.5 Encounter for palliative care (principal); G20.A1 Parkinson's disease without dyskinesia, without mention of fluctuations; F41.9 Anxiety disorder, unspecified | CPT/HCPCS: 99426; 99427 ==

== ENCOUNTER 2024-01-02 11:00 | Outpatient (CLI) | payer MEDICARE | END 2024-01-02 23:59 | disposition home or self-care (01) | LOC: PC 11:00 | PROVIDERS: ATTEND Nurse Practitioner Gerontology | DX: Z51.5 Encounter for palliative care (principal); G20.B2 Parkinson's disease with dyskinesia, with fluctuations; K59.09 Other constipation; I10 Essential (primary) hypertension; F41.9 Anxiety disorder, unspecified; R53.1 Weakness; Z79.899 Other long term (current) drug therapy; Z99.3 Dependence on wheelchair; Z63.79 Other stressful life events affecting family and household; Z71.89 Other specified counseling; Z74.1 Need for assistance with personal care | CPT/HCPCS: 99350 ==

== ENCOUNTER 2024-02-01 08:00 | Outpatient (CLI) | payer MEDICARE | END 2024-02-01 23:59 | disposition home or self-care (01) | LOC: PC 08:00 | PROVIDERS: ATTEND Nurse Practitioner Gerontology | DX: Z51.5 Encounter for palliative care (principal); G20.A1 Parkinson's disease without dyskinesia, without mention of fluctuations; F41.9 Anxiety disorder, unspecified | CPT/HCPCS: 99426; 99427 ==

== ENCOUNTER 2024-02-07 08:00 | Outpatient (CLI) | payer MEDICARE | END 2024-02-07 23:59 | disposition home or self-care (01) | LOC: PC 08:00 | PROVIDERS: ATTEND Nurse Practitioner Gerontology | DX: Z51.5 Encounter for palliative care (principal); G20.A1 Parkinson's disease without dyskinesia, without mention of fluctuations; F41.9 Anxiety disorder, unspecified; F32.1 Major depressive disorder, single episode, moderate | CPT/HCPCS: 99350 ==

== ENCOUNTER 2024-02-11 08:00 | Outpatient (CLI) | payer MEDICARE | END 2024-02-11 23:59 | disposition home or self-care (01) | LOC: LAB.N 08:00 | PROVIDERS: ATTEND Nurse Practitioner Gerontology | DX: N39.0 Urinary tract infection, site not specified (principal) | CPT/HCPCS: 87086 ==

== ENCOUNTER 2024-03-24 08:00 | Outpatient (CLI) | payer MEDICARE | END 2024-03-24 23:59 | disposition home or self-care (01) | LOC: PC 08:00 | PROVIDERS: ATTEND Nurse Practitioner Gerontology | DX: Z51.5 Encounter for palliative care (principal); G20.A1 Parkinson's disease without dyskinesia, without mention of fluctuations; M25.512 Pain in left shoulder; F33.0 Major depressive disorder, recurrent, mild | CPT/HCPCS: 99349 ==

== ENCOUNTER 2024-05-13 08:00 | Outpatient (CLI) | payer MEDICARE ==
[2024-05-13 18:03] LABS: BILIRUBIN,URINE NEGATIVE (NEGATIVE); GLUCOSE, URINE (UA) NEGATIVE (NEGATIVE); KETONES,URINE (UA) NEGATIVE (NEGATIVE); LEUKOCYTE ESTERASE, URINE NEGATIVE (NEGATIVE); NITRITE,URINE NEGATIVE (NEGATIVE); OCCULT BLOOD,URINE TRACE-LYSE (NEGATIVE); PH,URINE 6.5 PH (5.0-7.5); PROTEIN,URINE NEGATIVE (NEGATIVE); UROBILINOGEN,URINE 0.2 (NORMAL) E.U./dL (NORMAL)
[2024-05-13 18:10] LABS: CLARITY,URINE CLEAR (CLEAR)
[2024-05-13 18:19] LABS: BACTERIA,URINE Rare /HPF (None Seen); RBC,URINE 0-5 /HPF (0-5); SQUAMOUS EPITHELIAL CELL,UR RARE Squamous (<= Few); WBC,URINE 0-3 /HPF (0-5)
== END 2024-05-13 23:59 | disposition home or self-care (01) ==
LOC: LAB.N 08:00
PROVIDERS: ATTEND Nurse Practitioner Gerontology
DX: E53.8 Deficiency of other specified B group vitamins (principal); R30.0 Dysuria
CPT/HCPCS: 81001; 87086